=== PATIENT | male | born 1985 | race Caucasian/White ===

== ENCOUNTER 2019-05-21 15:50 | Emergency (ER) | payer OTHER, SELFPAY ==
[2019-05-21 15:54] VITALS: BP 162/107; PULSE 90; RESP 22; TEMP 36.9; O2SAT 100; BMI 24.2
--- NOTE | 2019-05-21 15:54 | ED_ITS ---
Entered by Colleen Sanchez, acting as scribe for JayleenAnamika Kemi HPI - Allergic Reaction General: Chief complaint: Allergic Reaction Stated complaint: allergic reaction Time Seen by Provider: 05/21/19 15:54 Source: patient Mode of arrival: ambulatory Limitations: no limitations History of Present Illness: HPI narrative: 34 yo male presents to ED with complaints of an allergic reaction. He is having difficulty breathing and hives. He said all he ate was a cheeseburger today. He said he normally has allergies to bologna, hot dogs, divalproex sodium (from Depakote), ketorolac (from Toradol), and penicillin. MD complaint: allergic reaction Associated symptoms: Deny abdominal pain, dizziness, facial swelling, hoarseness, nausea, tongue swelling or vomiting Review of Systems General: Reports: other (negative unless marked) Const: Denies: fever, chills, body aches, fatigue, malaise or diaphoresis Eyes: Denies: change in vision or blurry vision ENMT: Denies: throat pain, painful swallowing, hoarseness, ear pain, ear discharge, Change in hearing or nasal discharge Card: Denies: chest pain, palpitations, irregular heart rhythm, syncope, pre-syncope, shortness of breath on exertion or shortness of breath when lying down Resp: Denies: shortness of breath, productive cough, non-productive cough, wheezing, coughing up blood or chest congestion GI: Denies: abdominal pain, nausea, vomiting, vomiting blood, coffee grounds in vomit, diarrhea, constipation, cramping, blood in stool or black tarry stool : Denies: flank pain, difficulty urinating, painful urination, urinary frequency, urinary urgency, decreased urine ouput, urinary incontinence or blood in urine Musc: Denies: neck pain, back pain, extremity pain, extremity swelling, joint pain, joint swelling, joint warmth or joint stiffness Skin/Breast: Denies: rash, skin tenderness or yellow skin Neuro: Denies: headache, numbness in extremities, weakness in extremities, changes in sensation, lack of coordination, difficulty walking, dizziness, vertigo or confusion Endo: Denies: excessive thirst, tired all the time, cold intolerance, excessive sweating, flushing or hot flashes Donaldo/Lymph: Denies: easy bruising, easy bleeding, petechiae or enlarged lymph nodes All/Imm: Denies: tongue swelling, facial swelling or acute wheezing PFSH ED PFSH: Statuses (acute, chronic, etc) shown below reflect problem list status as previously entered and may not be historically accurate Social History Smoking and tobacco status: never smoked Course Vital Signs: Vital signs: Vital Signs Temperature 98.4 F 05/21/19 15:54 Pulse Rate 66 05/21/19 20:10 Respiratory Rate 20 H 05/21/19 19:21 Blood Pressure 127/95 05/21/19 20:10 Pulse Oximetry 98 05/21/19 20:10 Discharge Plan Discharge Patient Disposition: Home, Self-Care Clinical Impression: Allergic reaction Qualifiers: Encounter type: initial encounter Qualified Code(s): T78.40XA - Allergy, unspecified, initial encounter Anaphylaxis Qualifiers: Encounter type: initial encounter Qualified Code(s): T78.2XXA - Anaphylactic shock, unspecified, initial encounter Condition: Stable Prescriptions: No Action Symbicort 160-4.5 mcg/actuation Hfa Aerosol Inhaler 2 puff INHALATION BID RF: 0 Zofran 4 mg Tablet 4 mg PO DAILY PRN (Reason: Nausea) RF: 0 Flomax 0.4 mg Capsule 0.4 mg PO DAILY RF: 0 omeprazole 20 mg Capsule,Delayed Release(Dr/Ec) 20 mg PO BID RF: 0 naproxen 500 mg Tablet 500 mg PO BID PRN (Reason: Pain) RF: 0 diazepam 5 mg Tablet 5 mg PO BID PRN (Reason: Seizures) RF: 0 tizanidine 4 mg Capsule 4 mg PO TID PRN (Reason: Pain) RF: 0 oxycodone 10 mg Tablet 10 mg PO Q4H PRN (Reason: Pain) RF: 0 lovastatin 10 mg tablet 10 mg PO DAILY RF: 0 Discharge Orders: Discharge Order (Routine); Ordered 05/21/19 Ordered By: Anamika Clemens Referrals: Paige West FNP [Primary Care Provider] - Discharge Diet: Advance as tolerated Discharge Activity: Increase activity as tolerated Patient Instructions: Anaphylaxis (ED) Activity Restrictions/Additional Instructions: Please return to the ER immediately for any of the signs or symptoms listed on your discharge instruction sheets, worsening/changing of your symptoms, you are not getting better as quickly as expected, or for ANY other cause or concerns. Discharge Date/Time: 05/21/19 20:15 Coding Level of Care Code ED Logistics/Shipper for Chg Fwryanne The documentation recorded by the Daniel vilchis Valerie R, accurately reflects the service I personally performed and the decisions made by Jayleen fierro Eli N May 21, 2019 15:50
[2019-05-21 16:04] VITALS: BP 149/113; PULSE 102; RESP 24; O2SAT 100
[2019-05-21 16:06] VITALS: O2SAT 100
[2019-05-21] MEDS: diphenhydrAMINE 50 mg/mL SDV 1mL IVP (16:20)
[2019-05-21] MEDS: EPINEPHrine 1 mg/mL INJ 0.3 MG IM (16:20)
[2019-05-21] MEDS: sodium chloride 0.9% 1,000 ML 100 ML IV (16:30)
[2019-05-21] MEDS: famotidine 20 mg/2 mL INJ 40 MG IVP (16:30)
--- NOTE | 2019-05-21 16:32 | PC.NURSE ---
PEPCID MIXED IN 100ML OF NS TO INFUSE PER HOSPITAL POLICY
[2019-05-21 17:34] VITALS: BP 127/84; PULSE 66; RESP 18; O2SAT 97
--- NOTE | 2019-05-21 19:11 | XRR_ITS ---
PROCEDURE INFORMATION: Exam: XR Chest, 1 View Exam date and time: 05/21/2019 7:12 PM Age: 34 years old Clinical indication: Cough TECHNIQUE: Imaging protocol: XR of the chest Views: 1 view. COMPARISON: CR Chest 1 [place] [id number] 09/29/2018 8:22 PM FINDINGS: Lungs: Unremarkable. No consolidation. Pleural space: Unremarkable. No pleural effusion. No pneumothorax. Heart/Mediastinum: Unremarkable. No cardiomegaly. Bones/joints: Unremarkable. XR/XR chest 1V portable [id number] IMPRESSION: No acute findings. Unchanged exam.
[2019-05-21] MEDS: diphenhydrAMINE 50 mg/mL SDV 1mL 25 MG IVP (19:14)
[2019-05-21 19:21] VITALS: PULSE 71; RESP 20
[2019-05-21] MEDS: predniSONE 20 mg Tablet 60 MG PO (19:56)
[2019-05-21 20:10] VITALS: BP 127/95; PULSE 66; O2SAT 98
== END 2019-05-21 20:15 | disposition home or self-care (01) ==
PROVIDERS: Emergency Provider Emergency Medicine; Family Provider Nurse Practitioner; PCP Nurse Practitioner
DX: T78.2XXA Anaphylactic shock, unspecified, initial encounter (principal); T78.40XA Allergy, unspecified, initial encounter; X58.XXXA Exposure to other specified factors, initial encounter
CPT/HCPCS: 71045; 96360; 96361; 96372; 96374; 96375; 99282; J0171; J1200; J2930; J3490; J7030; J7512

== ENCOUNTER → 2019-06-22 13:50 | Outpatient (BNVA) | payer OTHER, SELFPAY | PROVIDERS: Family Provider Nurse Practitioner; PCP Nurse Practitioner; Visit Provider Nurse Practitioner Psychiatric/Mental Health | DX: F33.42 Major depressive disorder, recurrent, in full remission (principal); F43.12 Post-traumatic stress disorder, chronic; F41.1 Generalized anxiety disorder; F17.290 Nicotine dependence, other tobacco product, uncomplicated | CPT/HCPCS: 99213 ==

== ENCOUNTER → 2019-07-30 09:21 | Outpatient (BNVA) | payer OTHER, SELFPAY | PROVIDERS: Family Provider Nurse Practitioner; PCP Nurse Practitioner; Visit Provider Urology | DX: N28.1 Cyst of kidney, acquired (principal); R39.9 Unspecified symptoms and signs involving the genitourinary system; R35.8 Other polyuria | CPT/HCPCS: 81001 ==

== ENCOUNTER 2019-08-12 20:26 | Emergency (ER) | payer OTHER, SELFPAY ==
[2019-08-12 20:34] VITALS: PULSE 79; RESP 16; TEMP 37.1; O2SAT 95; BMI 24.2
--- NOTE | 2019-08-12 20:42 | ED_ITS ---
HPI - Nausea/Vomiting/Diarrhea General: Chief complaint: Nausea/Vomiting/Diarrhea Stated complaint: POSS DEHYDRATION/SENT FROM URGENT CARE Time Seen by Provider: 08/12/19 20:32 Source: patient Mode of arrival: ambulatory Limitations: no limitations History of Present Illness: HPI Narrative: Pteer is a 34-year-old very pleasant male that states he has had vomiting and diarrhea with abdominal cramping over the last 4 days. Patient states that he is vomited multiple times. He states that he is feeling dehydrated and was seen in urgent care and sent here for IV fluids. He has had low-grade fevers. He denies any cough or respiratory symptoms. Denies any worsening or improving factors. MD elicited complaint: nausea and vomiting Associated nausea: Yes Associated symtoms: Reports nausea; Denies chest pain, dysuria or headache(s) Review of Systems Const: Denies: fever, chills, body aches or change in appetite Eyes: Denies: blurry vision or eye discomfort ENMT: Denies: throat pain or dental pain Card: Denies: chest pain Resp: Denies: shortness of breath GI: Reports: nausea, vomiting and diarrhea; Denies: abdominal pain : Denies: painful urination Musc: Denies: neck pain or back pain Skin/Breast: Denies: rash Neuro: Denies: headache Psych: Denies: depression Donaldo/Lymph: Denies: easy bruising All/Imm: Denies: hives PFSH ED PFSH: Medical History Chronic post-traumatic stress disorder Generalized anxiety disorder Lower urinary tract symptoms (LUTS) Major depressive disorder, recurrent, in full remission with anxious distress Nicotine dependence, other tobacco product, uncomplicated Vaping Polyuria Family History Mother History of shingles Grandfather Myocardial infarction Other Cancer Diabetes Social History Smoking and tobacco status: former smoker Alcohol intake: never Marital status: Current occupational status: employed History of recent travel: No Physical Exam Const: COMMON NORMALS: no apparent distress, oriented x3 and healthy appearing HENMT: COMMON NORMALS: normocephalic and head/scalp atraumatic HEAD & SCALP: normocephalic and atraumatic Eye: COMMON NORMALS: PERRL and EOMs intact bilaterally PUPIL: Yes PERRL Neck/C-Spine: COMMON NORMALS: full ROM and supple Chest: COMMONS NORMALS: inspection of chest normal and palpation of chest normal Resp: COMMON NORMALS: normal respiratory effort, no retractions, no use of accessory muscles and clear to auscultation bilaterally AUSCULTATION: clear to auscultation bilaterally Cardio: COMMON NORMALS: regular rate, regular rhythm and no murmurs RATE: regular rate RHYTHM: regular rhythm GI: COMMON NORMALS: normal to inspection, nondistended, normoactive bowel sounds, soft to palpation, non-tender and no masses PALPATION: Yes soft Extremity: COMMON NORMALS: normal to inspection and full ROM Neuro: COMMON NORMALS: oriented x3, moves all extremities and no focal motor deficits Psych: COMMON NORMALS: mental status grossly normal, thought process normal and cooperative THOUGHT PROCESS: normal thought process Skin: COMMON NORMALS: no rashes or lesions noted and no wounds GENERAL SKIN EXAM: no rashes or lesions noted Course Vital Signs: Vital signs: Vital Signs Temperature 98.8 F 08/12/19 20:34 Pulse Rate 79 08/12/19 20:34 Respiratory Rate 16 08/12/19 20:34 Pulse Oximetry 95 08/12/19 20:34 MDM - Nausea/Vomiting/Diarrhea MDM Narrative: Medical decision making narrative: Patient presents here with vomiting that is likely viral in origin. Patient feels much improved after IV fluids and Zofran. Patient's lab work here is normal abdominal exam is benign. He has no signs of acute surgical abdomen. Will prescribe him Zofran for home and he is to follow-up with primary care doctor in 3 to 5 days and return if worsening. Lab Data: Labs: Lab Results 08/12/19 08/12/19 Range/Units 21:05 21:05 WBC 6.7 (4.0-10.0) 10^3/ uL RBC 4.57 (4.1-5.3) 10^6/u L Hgb 13.8 (11.7-16.6) g/dL Hct 40.6 L (42.0-52.0) % MCV 88.8 (80-94) fL MCH 30.2 (28.0-34.0) pg MCHC 34.0 (30.0-36.0) g/dL RDW 11.5 L (12.1-15.1) % Plt Count 248 (130-400) 10^3/c mm MPV 9.8 (7.4-10.4) fL Neut % (Auto) 56.2 % Lymph % (Auto) 34.3 % Stephenson % (Auto) 7.5 % Eos % (Auto) 1.0 % Baso % (Auto) 0.6 % Neut # (Auto) 3.7 (1.8-7.7) 10^3/u L Lymph # (Auto) 2.3 (0.8-4.8) 10^3/u L Stephenson # (Auto) 0.5 (0.2-0.9) 10^3/u L Eos # (Auto) 0.1 (0.0-0.8) 10^3/u L Baso # (Auto) 0.0 (0.0-0.1) 10^3/u L Nucleated RBC % (a uto) 0 % Nucleated RBCs # 0.0 /100WBC Sodium 138 (136-145) mmol/L Potassium 3.9 (3.5-5.1) mmol/L Chloride 101 (98-107) mmol/L Carbon Dioxide 27 (22-29) mmol/L Anion Gap 13.9 (5-19) BUN 13 (6-20) mg/dL Creatinine 0.9 (0.7-1.2) mg/dL GFR Calculation 96.0 (90-130) mL/min Glucose 108 (65-115) mg/dL Calculated Osmolal ity 283 L (285-295) mOsm/k g Calcium 9.6 (8.5-10.5) mg/dL Total Bilirubin 0.3 (0.15-1.2) mg/dL AST 16 (0-40) U/L ALT 15 (0-41) U/L Alkaline Phosphata se 56 (40-130) IU/L Total Protein 7.0 (6.6-8.7) g/dL Albumin 4.4 (3.5-5.2) g/dL Globulin 2.6 (1.3-4.6) g/dL Lipase 106 H (13-60) U/L Discharge Plan Discharge Patient Disposition: Home, Self-Care Clinical Impression: Vomiting Qualifiers: Vomiting type: unspecified Vomiting Intractability: non-intractable Nausea presence: with nausea Qualified Code(s): R11.2 - Nausea with vomiting, unspecified Condition: Stable Prescriptions: New Zofran 4 mg tablet 4 mg PO QID PRN (Reason: nausea and vomiting) Qty: 14 RF: 0 No Action Flomax 0.4 mg capsule 0.4 mg PO DAILY Qty: 30 RF: 12 morphine 15 mg tablet 15 mg PO Q4H RF: 0 diazepam 5 mg tablet 5 mg PO BID PRN (Reason: Seizures) Qty: 60 RF: 3 ondansetron 4 mg tablet,disintegrating 4 mg PO Q8H PRN (Reason: nausea and vomiting) Qty: 10 RF: 0 Zofran 4 mg tablet 4 mg PO DAILY PRN (Reason: Nausea) Qty: 30 RF: 3 bisacodyl 5 mg Tablet,Delayed Release (Dr/Ec) 5 mg PO DAILY RF: 0 Symbicort 160-4.5 mcg/actuation Hfa Aerosol Inhaler 2 puff INHALATION BID RF: 0 omeprazole 20 mg Capsule,Delayed Release(Dr/Ec) 20 mg PO BID RF: 0 naproxen 500 mg Tablet 500 mg PO BID PRN (Reason: Pain) RF: 0 tizanidine 4 mg Capsule 4 mg PO TID PRN (Reason: Pain) RF: 0 lovastatin 10 mg tablet 10 mg PO DAILY RF: 0 Discharge Orders: Discharge Order (Routine); Ordered 08/12/19 Ordered By: Hussain Pan Referrals: Paige West FNP [Primary Care Provider] - 4-7 days Discharge Diet: Advance as tolerated Discharge Activity: Resume usual activity Patient Instructions: Acute Nausea and Vomiting (ED) Coding Level of Care Code ED [employer] Worker for g Fwd Exam Comprehensive
[2019-08-12 21:08] LABS: Basophils % 0.6 %; Eosinophils # 0.1 10^3/uL (0.0-0.8); Hematocrit 40.6 % (42.0-52.0); Hemoglobin 13.8 g/dL (11.7-16.6); Lymphocytes # 2.3 10^3/uL (0.8-4.8); Lymphocytes % 34.3 %; Mean Corpuscular Hemoglobin 30.2 pg (28.0-34.0); Mean Corpuscular Volume 88.8 fL (80-94); Mean Platelet Volume 9.8 fL (7.4-10.4); Monocytes # 0.5 10^3/uL (0.2-0.9); Monocytes % 7.5 %; Neutrophils # 3.7 10^3/uL (1.8-7.7); Neutrophils % 56.2 %; Nucleated Red Blood Cells % 0 %; Platelet Count 248 10^3/cmm (130-400); Red Blood Count 4.57 10^6/uL (4.1-5.3); Red Cell Distribution Width 11.5 % (12.1-15.1); White Blood Count 6.7 10^3/uL (4.0-10.0)
[2019-08-12 21:27] LABS: Alanine Aminotransferase 15 U/L (0-41); Albumin Level 4.4 g/dL (3.5-5.2); Alkaline Phosphatase 56 IU/L (40-130); Anion Gap 13.9 (5-19); Aspartate Amino Transferase 16 U/L (0-40); Blood Urea Nitrogen 13 mg/dL (6-20); Calcium 9.6 mg/dL (8.5-10.5); Carbon Dioxide 27 mmol/L (22-29); Chloride 101 mmol/L (98-107); Globulin 2.6 g/dL (1.3-4.6); Glucose 108 mg/dL (65-115); Lipase 106 U/L (13-60); Osmolality Calculated 283 mOsm/kg (285-295); Potassium 3.9 mmol/L (3.5-5.1); Sodium 138 mmol/L (136-145); Total Bilirubin 0.3 mg/dL (0.15-1.2)
[2019-08-12] MEDS: ondansetron 2 mg/ML SDV 2 mL 4 MG IVP (21:49)
[2019-08-12] MEDS: sodium chloride 0.9% 1,000 ML 999 ML IV (21:50)
[2019-08-12] MEDS: ondansetron 4 MG Tablet PO (22:31)
[2019-08-12 22:40] VITALS: BP 126/74; PULSE 72; RESP 16; TEMP 36.5; O2SAT 96
== END 2019-08-12 22:00 | disposition home or self-care (01) ==
PROVIDERS: Emergency Provider Emergency Medicine; Family Provider Nurse Practitioner; PCP Nurse Practitioner
DX: R11.2 Nausea with vomiting, unspecified (principal); F43.12 Post-traumatic stress disorder, chronic; F33.42 Major depressive disorder, recurrent, in full remission; F41.1 Generalized anxiety disorder; Z87.891 Personal history of nicotine dependence
CPT/HCPCS: 12345; 80053; 83690; 85025; 96361; 96374; 96375; 99283; 99284; J2405; J7030; Q0162

== ENCOUNTER → 2019-10-21 07:33 | Outpatient (BNVA) | payer OTHER, SELFPAY | PROVIDERS: Family Provider Nurse Practitioner; PCP Nurse Practitioner; Visit Provider Nurse Practitioner Psychiatric/Mental Health | DX: F33.42 Major depressive disorder, recurrent, in full remission (principal); F43.12 Post-traumatic stress disorder, chronic; F41.1 Generalized anxiety disorder; F17.290 Nicotine dependence, other tobacco product, uncomplicated | CPT/HCPCS: 99213 ==

== ENCOUNTER 2019-11-25 08:47 | Day surgery (SDC) | payer OTHER, SELFPAY ==
[2019-11-23 10:59] VITALS: BMI 23.8
[2019-11-25 09:10] VITALS: BP 137/87; PULSE 56; RESP 18; TEMP 36.2; O2SAT 99
[2019-11-25] MEDS: sodium chloride 0.9% 1,000 ML 30 ML IV (09:30)
--- NOTE | 2019-11-25 09:46 | W.PM.OPSUD ---
Surgery/Procedure H&P Update DATE OF PROCEDURE: November 25, 2019 DATE H&P PERFORMED: 11/19/19 H&P UPDATE INFORMATION: I have reviewed H&P completed within last 30 days, I have examined patient prior to procedure and No changes to prior documentation PREOP DIAGNOSIS: Diarrhea PLANNED PROCEDURE: Operation Date: 11/25/19 09:30 Proposed Procedures p EGD/Possible biopsy/[id number] 19287 K29.50 R19.7(Not Applicable) - Davian Felix MD s Colonoscopy/Possible biopsy possible polypectomy(Not Applicable) - Davian Felix MD
--- NOTE | 2019-11-25 09:48 | ANES.PREANE2 ---
Pre-Anesthetic Assessment Pre-Anesthetic Assessment: Height/Weight: Height 1.68 m Weight 67.132 kg Temp Pulse Resp BP Pulse Ox 97.2 F L 56 L 18 137/87 99 11/25/19 09:10 11/25/19 09:10 11/25/19 09:10 11/25/19 09:10 11/25/19 09:10 Preop Diagnosis: Diarrhea Proposed Procedure: Operation Date: 11/25/19 09:30 Proposed Procedures p EGD/Possible biopsy/[id number] 67015 K29.50 R19.7(Not Applicable) - Davian Felix MD s Colonoscopy/Possible biopsy possible polypectomy(Not Applicable) - Davian Felix MD Was Beta Leanna taken within 24 hours: N/A Last intake: Intake Last Liquid Date 11/24/19 Last Liquid Time 19:00 Last Solid Date 11/24/19 Last Solid Time 19:00 Last Intake: 19:00 Social: Social History: No alcohol and No tobacco Comment: stop 2015 Exam: Pre-Anes Outpt Exam: alert, oriented x 3, clear to auscultation bilaterally and regular rate & rhythm Airway: Submandibular: WNL Cervical ROM: WNL MP: 1 Dentition: False Pulmonary: Pulmonary: COPD, MEHTA and SOB CV/HEM: CV/HEM: None reported : : None reported Hepatic: Hepatic: None reported GI: GI: GERD Metabolic: Metabolic: None reported Comments: hx PUD Musc/skel: Musc/skel: Lower Back Pain and OA/DJD Neuropsych: Neuropsych: Anxiety and Depression Anesthetic Plan: ASA status: 2 Anesthesia: Anesthesia Evaluation and MAC Risk of > 500 ml blood loss (7ml/kg in children): No PFSH Anesthesia PFSH: Medical History Chronic post-traumatic stress disorder COPD, mild Depression Frequent headaches Gastritis Generalized anxiety disorder Lower urinary tract symptoms (LUTS) Major depressive disorder, recurrent, in full remission with anxious distress Neuropathy Nicotine dependence, other tobacco product, uncomplicated Vaping Peptic ulcer disease Polyuria Seizures Surgical History H/O oral surgery History of endoscopy Hx of umbilical hernia repair Family History Mother History of shingles Grandfather Myocardial infarction CAD (coronary artery disease) Other Cancer Diabetes Denies family history of Anesthesia complication Bleeding disorder Social History Smoking and tobacco status: former smoker Alcohol intake: never Household members: spouse Marital status: Current occupational status: employed History of recent travel: No Data Anesthesia Cardiac Studies: No Data to Display
[2019-11-25 10:21] VITALS: BP 113/74; PULSE 69; RESP 16; TEMP 36.2; O2SAT 96
[2019-11-25 10:36] VITALS: BP 127/77; PULSE 72; RESP 18; TEMP 36.3; O2SAT 97
--- NOTE | 2019-11-25 11:27 | ANE.PACU2 ---
Inpatient post-anesthesia follow up: Airway intact: Yes Vital signs: Temperature 97.4 F Pulse Rate 72 Respiratory Rate 18 Blood Pressure 127/77 Pulse Oximetry 97 Oxygen Delivery Me thod Room Air Oxygen Flow Rate 3 Fraction of Inspir ed Oxygen Hydration adequate: Yes Nausea and vomiting: No Pain level: 1 Mental status: Baseline
== END 2019-11-25 11:20 | disposition home or self-care (01) ==
PROVIDERS: PCP Family Medicine; Visit Provider Surgery
PROC: 0DJ08ZZ Inspection of Upper Intestinal Tract, Via Natural or Artificial Opening Endoscopic (ICD-10-PCS; CPT 43235; principal; 2019-11-25 09:30)
PROC: 0DJD8ZZ Inspection of Lower Intestinal Tract, Via Natural or Artificial Opening Endoscopic (ICD-10-PCS; CPT 45378; 2019-11-25 09:30)
DX: R19.7 Diarrhea, unspecified (principal); K44.9 Diaphragmatic hernia without obstruction or gangrene; J44.9 Chronic obstructive pulmonary disease, unspecified; K21.9 Gastro-esophageal reflux disease without esophagitis; Z87.11 Personal history of peptic ulcer disease; M19.90 Unspecified osteoarthritis, unspecified site; F41.9 Anxiety disorder, unspecified; F33.9 Major depressive disorder, recurrent, unspecified; Z87.891 Personal history of nicotine dependence
CPT/HCPCS: 12345; 43239; 45380; 82274; 83630; 87493; 87506; 88305; 88309

== ENCOUNTER → 2019-12-09 07:30 | Outpatient (BNVA) | payer OTHER, SELFPAY | PROVIDERS: PCP Family Medicine; Visit Provider Nurse Practitioner Psychiatric/Mental Health | DX: F33.42 Major depressive disorder, recurrent, in full remission (principal); F43.12 Post-traumatic stress disorder, chronic; F41.1 Generalized anxiety disorder; F17.290 Nicotine dependence, other tobacco product, uncomplicated | CPT/HCPCS: 99214 ==

== ENCOUNTER 2019-12-28 08:49 | Outpatient (CLI) | payer OTHER, SELFPAY ==
--- NOTE | 2019-12-28 08:45 | US_ITS ---
WS: [id number] RIGHT UPPER QUADRANT ULTRASOUND HISTORY: chronic abdominal pain COMPARISON: 10/24/2017 Liver: 16.4 cm in length. Liver is top normal size. No mass or intrahepatic dilatation. Gallbladder: Gallbladder is slightly contracted with mild wall thickening. No stones or pericholecyst ic fluid. CBD: 0.3 cm Pancreas: Normal size and echogenicity. Right kidney: 10.8 cm in length. Normal echogenicity with no mass or hydronephrosis. Aorta and IVC: Unremarkable. No ascites. During this examination the stomach antrum was thickened and hyperechoic. No fluid adjacent to the an trum or duodenum. US/US gall bladder [id number] IMPRESSION: 1. No cholelithiasis or acute cholecystitis. 2. Mild hepatomegaly. 3. Stomach antral thickening. Correlate for gastritis.
== END 2019-12-28 08:50 | disposition home or self-care (01) ==
LOC: US 08:52
PROVIDERS: PCP Family Medicine; Visit Provider Surgery
DX: R10.9 Unspecified abdominal pain (principal); G89.29 Other chronic pain; R16.0 Hepatomegaly, not elsewhere classified
CPT/HCPCS: 76705

== ENCOUNTER 2020-02-16 10:14 | Outpatient (CLI) | payer SELFPAY ==
--- NOTE | 2020-02-16 10:23 | NM_ITS ---
WS: [id number] NUCLEAR MEDICINE HIDA SCAN CLINICAL INFORMATION: right upper and lower quadrant pain TECHNIQUE: Following intravenous administration of 7.4 mCi of technetium 99m mebrofenin, images of th e abdomen were obtained over the course of 60 minutes. Next, gallbladder ejection fraction was determ ined by obtaining preprandial and one-hour postprandial images of the gallbladder following oral olivier stion of Ensure. COMPARISON: Ultrasound December 28, 2019 FINDINGS: Normal hepatic uptake at 5 minutes. Normal common bile duct and small bowel activity. Normal hepatic excretion. Contracted gallbladder fills by 60 minutes. No evidence of choledocholithiasis. No significant gallbladder emptying on the ejection fraction images. NM/NM hepatobiliary w phar* [id number] IMPRESSION: 1. Gallbladder dysfunction suggesting chronic cholecystitis with no significan t gallbladder emptying.
== END 2020-02-16 10:15 | disposition home or self-care (01) ==
PROVIDERS: PCP Family Medicine; Visit Provider Surgery
DX: R10.11 Right upper quadrant pain (principal); R10.31 Right lower quadrant pain
CPT/HCPCS: 78227; A9537

== ENCOUNTER → 2020-02-17 14:40 | Outpatient (BNVA) | payer SELFPAY | PROVIDERS: PCP Family Medicine; Visit Provider Surgery | DX: K82.8 Other specified diseases of gallbladder (principal) | CPT/HCPCS: 87635 ==

== ENCOUNTER 2020-02-21 09:27 | Day surgery (SDC) | payer SELFPAY ==
[2020-02-18 13:06] VITALS: BMI 24.2
[2020-02-21] VITALS (8 sets, daily range): BP systolic 110–138; BP diastolic 66–94; PULSE 57–71; RESP 13–20; TEMP 36.2–36.5; O2SAT 97–100
--- NOTE | 2020-02-21 10:10 | P.HP_ITS ---
Same Day Surgery H&P Indication for Procedure/HPI DATE OF PROCEDURE: February 21, 2020 CHIEF COMPLAINT/INDICATIONFOR SURGICAL PROCEDURE: Patient continues to have abdominal pain, HIDA scan showed nonfilling of the gallbladder PREOP DIAGNOSIS: Chronic cholecystitis PLANNED PROCEDRUE: Operation Date: 02/21/20 10:40 Proposed Procedures p Laparoscopic Cholecystectomy possible open, 76244 K82.8(Not Applicable) - Davian Felix MD Medications/Allergies* Home Medications Medication Instructions Recorded Confirmed Type naproxen 500 mg PO BID PRN 05/21/19 02/21/20 History tizanidine 4 mg PO TID PRN 05/21/19 02/21/20 History Allergies/Adverse Reactions Allergy/AdvReac Type Severity Reaction Status Date / Time divalproex sodium Allergy hives Verified 02/21/20 09:57 [From Depakote] ketorolac [From Toradol] Allergy hives Verified 02/21/20 09:57 Penicillins Allergy hives Verified 02/21/20 09:57 bologna Allergy ALGY-Anaphy Uncoded 02/21/20 09:57 laxis hot dogs Allergy ALGY-Anaphy Uncoded 02/21/20 09:57 laxis Pertinent History/Comorbid Conditions* Medical History (Updated 11/16/19 @ 07:46 by Syeda Yang DO) Chronic post-traumatic stress disorder COPD, mild Depression Frequent headaches Gastritis Generalized anxiety disorder Lower urinary tract symptoms (LUTS) Major depressive disorder, recurrent, in full remission with anxious distress Neuropathy Nicotine dependence, other tobacco product, uncomplicated Vaping Peptic ulcer disease Polyuria Seizures Surgical History (Updated 10/13/19 @ 13:50 by Syeda Yang DO) H/O oral surgery History of endoscopy Hx of umbilical hernia repair Family History (Updated 11/19/19 @ 13:53 by Marly Gibson LPN) History of shingles Mother Diabetes CAD (coronary artery disease) Grandfather Myocardial infarction Grandfather Cancer Denies family history of Anesthesia complication Bleeding disorder Social History Smoking and tobacco status: former smoker Alcohol intake: never Household members: spouse Marital status: Current occupational status: employed History of recent travel: No Pertinent Exam Findings alert, oriented x 3, regular rate & rhythm and operative site marked Recommendations Surgery/Procedure today Coding Level of Care Code Acute Medicare Contact Specialist for Chg Carlos
--- NOTE | 2020-02-21 10:12 | ANES.PREANE2 ---
Pre-Anesthetic Assessment Pre-Anesthetic Assessment: Height/Weight: Height 1.68 m Weight 68.039 kg Temp Pulse Resp BP Pulse Ox 97.1 F L 70 18 138/94 98 02/21/20 09:59 02/21/20 09:59 02/21/20 09:59 02/21/20 09:59 02/21/20 09:59 Preop Diagnosis: Chronic cholecystitis Proposed Procedure: Operation Date: 02/21/20 10:40 Proposed Procedures p Laparoscopic Cholecystectomy possible open, 10103 K82.8(Not Applicable) - Davian Felix MD Was Beta Leanna taken within 24 hours: N/A Last intake: Intake Last Liquid Date 02/20/20 Last Solid Date 02/20/20 Social: Social History: Tobacco Exam: Pre-Anes Outpt Exam: alert, oriented x 3, clear to auscultation bilaterally and regular rate & rhythm Airway: Submandibular: WNL Cervical ROM: WNL MP: 2 Dentition: False History/ROS: No significant history except as noted and No significant complaints Pulmonary: Pulmonary: COPD Comments: mild COPD CV/HEM: CV/HEM: None reported : : None reported Hepatic: Hepatic: None reported GI: GI: None reported Metabolic: Metabolic: None reported Neuropsych: Neuropsych: Neuropathy and Seizure Comments: No seizure in years Anesthetic Plan: ASA status: 2 Anesthesia: Anesthesia Evaluation and General Risk of > 500 ml blood loss (7ml/kg in children): No PFSH Anesthesia PFSH: Medical History Chronic post-traumatic stress disorder COPD, mild Depression Frequent headaches Gastritis Generalized anxiety disorder Lower urinary tract symptoms (LUTS) Major depressive disorder, recurrent, in full remission with anxious distress Neuropathy Nicotine dependence, other tobacco product, uncomplicated Vaping Peptic ulcer disease Polyuria Seizures Surgical History H/O oral surgery History of endoscopy Hx of umbilical hernia repair Family History Mother History of shingles Grandfather Myocardial infarction CAD (coronary artery disease) Other Cancer Diabetes Denies family history of Anesthesia complication Bleeding disorder Social History Smoking and tobacco status: former smoker Alcohol intake: never Household members: spouse Marital status: Current occupational status: employed History of recent travel: No Data Anesthesia Cardiac Studies: No Data to Display
[2020-02-21] MEDS: ciprofloxacin 400 MG/200 ML PREMIX 200 MG IV (10:17)
[2020-02-21] MEDS: midazolam 1 mg/mL INJ 2 mL 2 MG IVP (10:17)
[2020-02-21] MEDS: sodium chloride 0.9% 1,000 ML 30 ML IV (10:20)
--- NOTE | 2020-02-21 11:28 | PM.OP ---
Operative Report Date of procedure: February 21, 2020 Pre-op Diagnosis: Chronic cholecystitis Post-op diagnosis: same Procedure Done: Laparoscopic cholecystectomy Specimens removed/disposition: Gallbladder Surgeon: Davian Felix Anesthesia: General Condition: stable Disposition: PACU Procedure: The patient was taken to the operating room and was intubated under general anesthesia. After the antibiotic had been administered, the abdomen was prepped and draped in a sterile manner. Using a #15 blade, a 1 centimeter infraumbilical curvilinear incision was made and using an open Roverto technique the peritoneal cavity was entered. A 10 millimeter port was placed and 15 millimeters of pneumoperitoneum was created. A 10 millimeter, 30 degrees scope was then introduced. Three 5 millimeter ports were placed in the epigastric, midclavicular and the anterior axillary line two fingerbreadths below the costal margin on the right side under the direct visualization. Ratcheted forceps were introduced into the lateral most port and was used to retract the fundus of the gallbladder cephalad and using forceps the infundibulum of the gallbladder was retracted laterally. Using L-hook cautery the peritoneum overlying the Calot's triangle was opened medially and laterally until the cystic duct and the cystic artery were skeletonized. Dissection was carried along the body of the gallbladder and after ensuring critical view of safety, 4 clips applied on the cystic duct and 3 clips applied on the cystic artery and cut leaving, 3 clips on the remaining portion of the duct and 2 clips on the remaining portion of the artery. The rest of the gallbladder was dissected off the liver using L-hook cautery. There was no bleeding or bile leaking noted from the gallbladder fossa and the clips appeared to be in place. An EndoCatch bag was introduced to remove the gallbladder. All the ports were removed under direct visualization and there was no bleeding noted from the port sites. The fascia of the umbilicus was closed using [id number] 0 Vicryl sutures and the subcutaneous tissue was approximated using 3-0 Vicryl sutures. The skin at all four ports were closed using 4-0 Monocryl and Dermabond. A total of 10 millimeters of 0.5% Marcaine was infiltrated around the port sites. The patient was stable throughout the procedure.
--- NOTE | 2020-02-21 11:35 | ANE.PACU2 ---
Inpatient post-anesthesia follow up: Airway intact: Yes Vital signs: Temperature 97.7 F Pulse Rate 71 Respiratory Rate 18 Blood Pressure 138/91 Pulse Oximetry 100 Oxygen Delivery Me thod Room Air Oxygen Flow Rate 8 Fraction of Inspir ed Oxygen Hydration adequate: Yes Nausea and vomiting: No Pain level: 6 Mental status: Baseline
[2020-02-21] MEDS: HYDROcodone-acetaminophen 5-325 mg Tablet 1 TAB PO (12:08)
[2020-02-21] MEDS: morphine IR 15 mg Tablet PO (12:18)
== END 2020-02-21 13:00 | disposition home or self-care (01) ==
PROVIDERS: PCP Family Medicine; Visit Provider Surgery
PROC: 0FT44ZZ Resection of Gallbladder, Percutaneous Endoscopic Approach (ICD-10-PCS; CPT 47562; principal; 2020-02-21 10:40)
DX: K81.1 Chronic cholecystitis (principal); J44.9 Chronic obstructive pulmonary disease, unspecified; Z87.11 Personal history of peptic ulcer disease; Z87.891 Personal history of nicotine dependence
CPT/HCPCS: 47562; 12345; 88304; J0744; J1100; J2250; J2405; J2704; J2710; J3010; J3490; J7030

== ENCOUNTER → 2020-04-10 15:49 | Outpatient (BNVA) | payer OTHER, SELFPAY | PROVIDERS: PCP Family Medicine; Visit Provider Family Medicine | DX: E78.5 Hyperlipidemia, unspecified (principal); K59.1 Functional diarrhea; Z68.23 Body mass index [BMI] 23.0-23.9, adult; F17.211 Nicotine dependence, cigarettes, in remission; Z71.89 Other specified counseling | CPT/HCPCS: 80053; 80061 ==

== ENCOUNTER → 2020-04-13 13:49 | Outpatient (BNVA) | payer OTHER, SELFPAY | PROVIDERS: PCP Family Medicine; Visit Provider Family Medicine | DX: E87.5 Hyperkalemia (principal) | CPT/HCPCS: 80048 ==

== ENCOUNTER → 2020-04-24 08:08 | Outpatient (BNVA) | payer OTHER, SELFPAY | PROVIDERS: PCP Family Medicine; Visit Provider Nurse Practitioner Psychiatric/Mental Health | DX: F33.42 Major depressive disorder, recurrent, in full remission (principal); F43.12 Post-traumatic stress disorder, chronic; F41.1 Generalized anxiety disorder; F17.290 Nicotine dependence, other tobacco product, uncomplicated | CPT/HCPCS: 99213 ==

== ENCOUNTER → 2020-07-14 07:59 | Outpatient (BNVA) | payer OTHER, SELFPAY | PROVIDERS: PCP Family Medicine; Visit Provider Nurse Practitioner Psychiatric/Mental Health | DX: F33.42 Major depressive disorder, recurrent, in full remission (principal); F43.12 Post-traumatic stress disorder, chronic; F41.1 Generalized anxiety disorder; F17.290 Nicotine dependence, other tobacco product, uncomplicated | CPT/HCPCS: 99214 ==

== ENCOUNTER 2020-08-16 13:07 | Observation (INO) | payer OTHER, SELFPAY ==
[2020-08-16] VITALS (8 sets, daily range): BP systolic 115–123; BP diastolic 69–79; PULSE 60–67; RESP 17–18; TEMP 36.8–37.2; O2SAT 96–98
--- NOTE | 2020-08-16 13:11 | PM.HP ---
Providers/Chief Complaint Admitting Physician: Liam Cam MD Primary Care Provider: Syeda Yang DO Chief Complaint: dehydration and vommiting History of Present Illness Peter Brito III is a 35 year old male with history of intractable nausea and vomiting last 4 days. He reports he is very weak, dizzy, and then unable to keep any significant amount of food or liquid down. He reports he is trying to take a very small sip of fluid once in a while to stay hydrated. He denies any fever. Other family members recently with gastroenteritis. He has not had any loose stool other than one episode today. No fever, new cough, history of Covid, exposure to Covid. He reports stomach issues for at least 5 years, with episodes of vomiting and diarrhea occurring every 1 to 2 months. He has been diagnosed with irritable bowel. He said upper and lower endoscopies which were significant only for a small hiatal hernia in November 2019. He reports he recently started marijuana 2 weeks ago after he got his medical card to see if this would help. He is on chronic pain medicine in the form of morphine which he denies taking in the last 4 days secondary to vomiting. He thinks he may be withdrawing some now. No blood in stool, no black or tarry bowel movements, no hematemesis. Having pain in his epigastric area but some in the right lower quadrant as well. He has been taking naproxen on occasion. Review of Systems General: Reports: 10 or more systems reviewed and unremarkable except in HPI and below Const: Denies: fever(s) Eyes: Denies: change in vision ENMT: Denies: throat pain Card: Denies: chest pain Resp: Denies: dyspnea GI: Reports: abdominal pain, nausea and vomiting; Denies: hematemesis, coffee ground emesis, hematochezia or melena : Denies: flank pain Musc: Denies: neck pain Skin/Breast: Denies: rash Neuro: Denies: headache(s) Psych: Reports: anxiety; Denies: depression Endo: Denies: polyuria Donaldo/Lymph: Denies: easy bruising All/Imm: Denies: urticaria Medications/Allergies Home Medications Medication Instructions Recorded Confirmed Last Taken Type naproxen 500 mg PO BID PRN 05/21/19 08/16/20 02/19/20 History tizanidine 4 mg PO TID PRN 05/21/19 08/16/20 02/20/20 History fluticasone fur. 100 mcg-umeclid 1 inh INHALATION DAILY 90 Days #60 12/15/19 08/16/20 02/21/20 Rx 62.5 mcg-vilant 25 mcg each inhalat.powder morphine 15 mg PO Q4H PRN 02/21/20 08/16/20 02/21/20 History lovastatin 10 mg tablet 10 mg PO DAILY #90 tab 07/03/20 08/16/20 Unknown Rx diazepam 5 mg tablet 5 mg PO BID PRN #60 tab 07/14/20 08/16/20 Unknown Rx dicyclomine 10 mg capsule 10 mg PO QID #120 cap 07/14/20 08/16/20 Unknown Rx trazodone 150 mg tablet 150 mg PO .bedtime PRN #90 tab 07/14/20 08/16/20 Unknown Rx ciprofloxacin HCl 500 mg tablet 500 mg PO BID #20 tab 07/20/20 08/16/20 Unknown Rx metronidazole 500 mg tablet 500 mg PO BID #20 tab 07/20/20 08/16/20 Unknown Rx ondansetron HCl 4 mg tablet 4 mg PO Q6H PRN #20 tab 07/20/20 08/16/20 Unknown Rx pantoprazole 40 mg tablet,delayed 40 mg PO BID #60 tab 08/03/20 08/16/20 Unknown Rx release tamsulosin 0.4 mg capsule See Rx Instructions .ROUTE 08/07/20 08/16/20 Unknown Rx .COMPLEX #30 cap Allergies Allergy/AdvReac Type Severity Reaction Status Date / Time divalproex sodium Allergy hives Verified 08/16/20 10:23 [From Depakote] ketorolac [From Toradol] Allergy hives Verified 08/16/20 10:23 Penicillins Allergy hives Verified 08/16/20 10:23 bologna Allergy ALGY-Anaphy Uncoded 08/15/20 09:38 laxis hot dogs Allergy ALGY-Anaphy Uncoded 08/15/20 09:38 laxis PFSH Acute PFSH: Medical History Chronic post-traumatic stress disorder COPD, mild Depression Frequent headaches Gastritis Generalized anxiety disorder Lower urinary tract symptoms (LUTS) Major depressive disorder, recurrent, in full remission with anxious distress Neuropathy Nicotine dependence, other tobacco product, uncomplicated Vaping Peptic ulcer disease Polyuria Seizures Surgical History H/O oral surgery History of endoscopy Hx of umbilical hernia repair Status post laparoscopic cholecystectomy (02/21/20) Family History Mother History of shingles Grandfather Myocardial infarction CAD (coronary artery disease) Other Cancer Diabetes Denies family history of Anesthesia complication Bleeding disorder Social History Smoking and tobacco status: former smoker Alcohol intake: never Household members: spouse Marital status: Current occupational status: employed History of recent travel: No Vitals/I&O/Wt Last Vital Signs Temp 98.2 F 08/16/20 12:59 Pulse 61 08/16/20 12:59 Resp 18 08/16/20 12:59 BP 123/79 08/16/20 12:59 Pulse Ox 98 08/16/20 12:59 Physical Exam Narrative: EXAM NARRATIVE: General exam is a male, who appears tired in no apparent distress HEENT: Pupils equally round. Oropharynx with dry mucous membranes Neck is supple no lymphadenopathy thyromegaly Cardiovascular regular rate and rhythm without murmur Lungs clear to auscultation bilaterally that wheezing or crackles Abdomen is tenderness in the epigastric as well as right lower quadrant area. Positive bowel sounds. No obvious rebound. was deferred Extremities no cyanosis clubbing or edema, cap refill brisk Skin no rash Neuro no obvious focal deficits. Data Other data: He is a direct admission so no laboratory at time of history and physical. I have ordered a CBC, CMP, urinalysis, TSH, lactate, magnesium. Secondary to his significant abdominal pain I will obtain a CT abdomen and pelvis if his kidney function is acceptable. A&P Assessment and plan (1) Dehydration: Fluid bolus now 500 cc, reassess Status: Acute (2) Intractable nausea and vomiting: Zofran for nausea Morphine as needed N.p.o. for now IV fluids Discussed with patient that possibly narcotic withdrawal or THC use could exacerbate his underlying chronic nausea and vomiting. 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
[2020-08-16 13:21] LABS: Add Urine Microscopic? NO; Charge for UA Resulting for Rev
[2020-08-16 13:36] LABS: Bilirubin Urine Neg (Negative); Blood Urine Neg (Negative); Glucose Urine UA Norm (Normal); Ketones Urine 1+ (Negative); Leukocyte Esterase Urine Negative (Negative); Nitrate Urine Negative (Negative); Protein Urine Neg (Negative); Specific Gravity, Urine 1.005 (1.005-1.030); Urine Appearance Clear (CLEAR); Urine Color Yellow (Yellow); Urobilinogen Urine Norm (Negative); pH Urine 7 (5-7)
[2020-08-16 13:40] LABS: Basophils # 0.1 10^3/uL (0.0-0.1); Basophils % 0.5 %; Eosinophils % 0.1 %; Hemoglobin 15.3 g/dL (11.7-16.6); Lymphocytes # 2.7 10^3/uL (0.8-4.8); Lymphocytes % 21.2 %; Mean Corpuscular HGB Conc 33.3 g/dL (30.0-36.0); Mean Corpuscular Hemoglobin 29.9 pg (28.0-34.0); Mean Corpuscular Volume 89.8 fL (80-94); Mean Platelet Volume 10.2 fL (7.4-10.4); Monocytes % 7.8 %; Neutrophils # 8.92 10^3/uL (1.8-7.7); Neutrophils % 70.1 %; Nucleated Red Blood Cells % 0 %; Platelet Count 311 10^3/cmm (130-400); Red Blood Count 5.12 10^6/uL (4.1-5.3); Red Cell Distribution Width 11.9 % (12.1-15.1); White Blood Count 12.7 10^3/uL (4.0-10.0)
[2020-08-16] MEDS: sodium chloride 0.9% 500 ML IV (13:44)
[2020-08-16] MEDS: famotidine 20 mg/2 mL INJ IVP ×2 (13:47→20:33)
[2020-08-16] MEDS: ondansetron 2 mg/ML SDV 2 mL 4 MG IVP ×2 (13:55→22:15)
[2020-08-16] MEDS: morphine 4 mg/mL SDV 1 mL 2 MG IVP ×3 (13:55→23:09)
[2020-08-16 14:14] LABS: Alanine Aminotransferase 15 U/L (0-41); Albumin Level 4.6 g/dL (3.5-5.2); Alkaline Phosphatase 55 IU/L (40-130); Aspartate Amino Transferase 18 U/L (0-40); Blood Urea Nitrogen 14 mg/dL (6-20); Calcium 9.8 mg/dL (8.5-10.5); Carbon Dioxide 22 mmol/L (22-29); Chloride 103 mmol/L (98-107); Globulin 2.7 g/dL (1.3-4.6); Glomerular Filtration Rate 152.4 mL/min (90-130); Glucose 96 mg/dL (65-115); Magnesium 1.9 mg/dL (1.7-2.3); Osmolality Calculated 288 mOsm/kg (285-295); Sodium 139 mmol/L (136-145); Thyroid Stimulating Hormone 0.53 uIU/mL (0.27-4.20); Total Bilirubin 0.8 mg/dL (0.15-1.2); Total Protein 7.3 g/dL (6.6-8.7)
[2020-08-16 14:20] LABS: Anion Gap 17.4 (5-19); Potassium 3.4 mmol/L (3.5-5.1)
--- NOTE | 2020-08-16 14:45 | CTR_ITS ---
PROCEDURE INFORMATION: Exam: CT Abdomen And Pelvis With Contrast Exam date and time: 08/16/2020 3:03 PM Age: 35 years old Clinical indication: Nausea and vomiting; Abdominal pain; Prior surgery; Surgery type: Gb, hernia TECHNIQUE: Imaging protocol: Computed tomography of the abdomen and pelvis with contrast. Radiation optimization: All CT scans at this facility use at least one of these dose optimization techniques: automated exposure control; mA and/or kV adjustment per patient size (includes targeted exams where dose is matched to clinical indication); or iterative reconstruction. Contrast material: OMNI 300; Contrast volume: 95 ml; Contrast route: INTRAVENOUS (IV); COMPARISON: CT abdomen pelvis w con* [id number] 10/04/2018 3:02 AM RADIATION DOSE METRICS: Total DLP (mGy-cm): 644.15 FINDINGS: Lungs: The lung bases appear unremarkable. Liver: The liver is unremarkable in appearance. Gallbladder and bile ducts: The gallbladder is surgically absent. No biliary dilatation. Pancreas: The pancreas is normal in appearance. No pancreatic duct dilatation. Spleen: The spleen is normal in size and appearance. Adrenal glands: The adrenal glands appear within normal limits. Kidneys and ureters: The kidneys are normal in morphology. No hydronephrosis. No solid mass. Stomach and bowel: No acute gastric abnormality demonstrated. The small bowel is unremarkable as demonstrated. Mild mural thickening of the descending and rectosigmoid portions of the colon with mild pericolonic inflammation. Findings are consistent with nonspecific colitis. Appendix: The appendix is normal in appearance. No evidence of appendicitis. Intraperitoneal space: No pneumoperitoneum. No significant fluid collection. Vasculature: The aorta is atherosclerotic. No aortic aneurysm. Lymph nodes: No pathologically enlarged lymph nodes are demonstrated. Urinary bladder: The urinary bladder is unremarkable in appearance. Reproductive: Unremarkable as visualized. Bones/joints: No fracture or other acute osseous abnormality. Soft tissues: The soft tissues appear unremarkable. CT/CT abdomen pelvis w con* [id number] IMPRESSION: 1. Mild mural thickening of the descending and rectosigmoid portions of the colon with mild pericolonic inflammation. Findings are consistent with nonspecific colitis. This is new when compared to 10/04/2018. 2. No acute abnormality demonstrated of the solid organs. Radiation Dose CTDIVOL = (mGy): DLP = 644.15 (mGy-cm)
[2020-08-16] MEDS: potassium chloride ER 20 mEq Tablet 40 MEQ PO (14:56)
[2020-08-16] MEDS: sodium chloride 0.9% 1,000 ML 100 ML IV (14:57)
[2020-08-16] MEDS: iohexol 300 mg/mL 100 mL Btl IV (16:07)
[2020-08-16] MEDS: ciprofloxacin 400 MG/200 ML PREMIX 200 MG IV (17:48)
[2020-08-16 18:21] LABS: Lipase 35 U/L (13-60)
[2020-08-16] MEDS: metroNIDAZOLE IV 500 MG/100 ML PREMIX 100 MG IV (19:06)
[2020-08-16] MEDS: tizanidine 4 mg Tablet PO (23:00)
[2020-08-16] MEDS: trazodone 150 mg Tablet PO (23:05)
[2020-08-17] VITALS (8 sets, daily range): BP systolic 93–107; BP diastolic 52–66; PULSE 48–67; RESP 16–18; TEMP 36.5–36.8; O2SAT 95–98
[2020-08-17] MEDS: metroNIDAZOLE IV 500 MG/100 ML PREMIX 100 MG IV ×2 (00:29→08:15)
[2020-08-17] MEDS: sodium chloride 0.9% 1,000 ML 100 ML IV ×2 (00:30→11:20)
[2020-08-17] MEDS: ciprofloxacin 400 MG/200 ML PREMIX 200 MG IV (05:27)
[2020-08-17 05:41] LABS: Basophils # 0.1 10^3/uL (0.0-0.1); Basophils % 1.2 %; Eosinophils % 0.6 %; Hematocrit 40.7 % (42.0-52.0); Hemoglobin 13.5 g/dL (11.7-16.6); Lymphocytes # 2.9 10^3/uL (0.8-4.8); Lymphocytes % 42.9 %; Mean Corpuscular HGB Conc 33.2 g/dL (30.0-36.0); Mean Corpuscular Hemoglobin 30.7 pg (28.0-34.0); Mean Corpuscular Volume 92.5 fL (80-94); Mean Platelet Volume 10.4 fL (7.4-10.4); Monocytes # 0.7 10^3/uL (0.2-0.9); Monocytes % 9.7 %; Neutrophils # 3.03 10^3/uL (1.8-7.7); Neutrophils % 45.3 %; Nucleated Red Blood Cells % 0 %; Platelet Count 233 10^3/cmm (130-400); Red Cell Distribution Width 11.9 % (12.1-15.1); White Blood Count 6.7 10^3/uL (4.0-10.0)
[2020-08-17] MEDS: morphine 4 mg/mL SDV 1 mL 2 MG IVP (05:45)
[2020-08-17] MEDS: ondansetron 2 mg/ML SDV 2 mL 4 MG IVP ×2 (05:45→12:11)
[2020-08-17 05:59] LABS: Blood Urea Nitrogen 11 mg/dL (6-20); Calcium 8.9 mg/dL (8.5-10.5); Carbon Dioxide 22 mmol/L (22-29); Chloride 110 mmol/L (98-107); Glomerular Filtration Rate 127.6 mL/min (90-130); Glucose 89 mg/dL (65-115); Osmolality Calculated 287 mOsm/kg (285-295); Sodium 139 mmol/L (136-145)
--- NOTE | 2020-08-17 07:40 | PC.NURSE ---
Reported pts vitals to his nurse.
[2020-08-17] MEDS: tizanidine 4 mg Tablet PO (08:14)
[2020-08-17] MEDS: famotidine 20 mg/2 mL INJ IVP (08:26)
[2020-08-17] MEDS: morphine IR 15 mg Tablet PO (11:19)
--- NOTE | 2020-08-17 13:08 | P.DS_ITS ---
Discharge Providers Date of Admission: 08/16/20 13:07 Date of Discharge: August 17, 2020 Attending Provider at Admission: Liam Cam MD Attending Provider at Discharge: Liam Cam MD Primary Care Provider: Syeda Yang DO Diagnoses at Discharge Discharge Diagnosis (1) Dehydration: Status: Acute (2) Intractable nausea and vomiting: Status: Acute (3) Abdominal pain, acute, right lower quadrant: Status: Acute Reason for Visit Reason for Visit: dehydration and vommiting Hospital Course Hospital Course Peter is a 35-year-old male who presented to his provider's office with severe nausea vomiting for the last 4 days unable to tolerate p.o. intake that was substantial. He appeared dehydrated. He was having significant abdominal discomfort. He had been unable to take his regular medication. Lipase and LFTs were normal. Electrolytes were normal with the exception of slightly low potassium. General exam no apparent distressHe was placed in the hospital in observation. He was rehydrated. Secondary to abdominal pain a CT scan abdomen and pelvis with contrast was obtained. This demonstrated mild mural thickening of the descending and rectosigmoid colon with mild pericolonic inflammation. He was put on Cipro and Flagyl. While in the hospital he had resolution of nausea vomiting as well as resolution of loose stools. No stool was ever collected. He will finish oral Cipro and Flagyl for approximately 6 more days at home. By day of discharge on August 17 he was feeling good, not having significant nausea vomiting and diarrhea had resolved. Physical Exam Narrative: EXAM NARRATIVE: General exam no apparent distress Cardiovascular regular rate and rhythm without murmur Lungs clear Abdomen is soft, positive bowel sounds. Mild epigastric tenderness. Extremities no cyanosis clubbing or edema Discharge Data Data Completed and Pending: Completed Studies During Hospitalization Category Date Time Status CT abdomen pelvis w con* [id number] Charis ine Cat Scan 08/16/20 14:45 Completed Pending at discharge Category Date Time Status Clostridioides Di fficile PCR Routin e Lab 08/17/20 08:47 Uncollected Enteric Bacterial Panel by PCR Rout ine Lab 08/17/20 08:47 Uncollected Labs from last 24 hours 08/17/20 08/17/20 08/16/20 05:20 05:20 17:21 WBC 6.7 RBC 4.40 Hgb 13.5 Hct 40.7 L MCV 92.5 MCH 30.7 MCHC 33.2 RDW 11.9 L Plt Count 233 MPV 10.4 Neut % (Auto) 45.3 Lymph % (Auto) 42.9 [place] % (Auto) 9.7 Eos % (Auto) 0.6 Baso % (Auto) 1.2 Neut # (Auto) 3.03 Lymph # (Auto) 2.9 [place] # (Auto) 0.7 Eos # (Auto) 0.0 Baso # (Auto) 0.1 Nucleated RBC % (a uto) 0 Nucleated RBCs # 0.0 Sodium 139 Potassium 4.0 Chloride 110 H Carbon Dioxide 22 Anion Gap 11.0 BUN 11 Creatinine 0.7 GFR Calculation 127.6 Glucose 89 Calculated Osmolal ity 287 Lactate Calcium 8.9 Magnesium Total Bilirubin AST ALT Alkaline Phosphata se Total Protein Albumin Globulin Lipase 35 TSH Urine Color Urine Appearance Urine pH Ur Specific Gravit y Urine Protein Urine Glucose (UA) Urine Ketones Urine Blood Urine Nitrate Urine Bilirubin Urine Urobilinogen Ur Leukocyte Sujata ase 08/16/20 08/16/20 08/16/20 15:25 13:30 13:30 WBC RBC Hgb Hct MCV MCH MCHC RDW Plt Count MPV Neut % (Auto) Lymph % (Auto) [place] % (Auto) Eos % (Auto) Baso % (Auto) Neut # (Auto) Lymph # (Auto) [place] # (Auto) Eos # (Auto) Baso # (Auto) Nucleated RBC % (a uto) Nucleated RBCs # Sodium 139 Potassium 3.4 L Chloride 103 Carbon Dioxide 22 Anion Gap 17.4 BUN 14 Creatinine 0.6 L GFR Calculation 152.4 H Glucose 96 Calculated Osmolal ity 288 Lactate 1.0 Cancelled Calcium 9.8 Magnesium 1.9 Total Bilirubin 0.8 AST 18 ALT 15 Alkaline Phosphata se 55 Total Protein 7.3 Albumin 4.6 Globulin 2.7 Lipase TSH 0.53 Urine Color Urine Appearance Urine pH Ur Specific Gravit y Urine Protein Urine Glucose (UA) Urine Ketones Urine Blood Urine Nitrate Urine Bilirubin Urine Urobilinogen Ur Leukocyte Sujata ase 08/16/20 08/16/20 08/16/20 13:30 13:30 12:34 WBC 12.7 H RBC 5.12 Hgb 15.3 Hct 46.0 MCV 89.8 MCH 29.9 MCHC 33.3 RDW 11.9 L Plt Count 311 MPV 10.2 Neut % (Auto) 70.1 Lymph % (Auto) 21.2 [place] % (Auto) 7.8 Eos % (Auto) 0.1 Baso % (Auto) 0.5 Neut # (Auto) 8.92 H Lymph # (Auto) 2.7 [place] # (Auto) 1.0 H Eos # (Auto) 0.0 Baso # (Auto) 0.1 Nucleated RBC % (a uto) 0 Nucleated RBCs # 0.0 Sodium Potassium Chloride Carbon Dioxide Anion Gap BUN Creatinine GFR Calculation Glucose Calculated Osmolal ity Lactate Calcium Magnesium Total Bilirubin AST ALT Alkaline Phosphata se Total Protein Albumin Globulin Lipase TSH Cancelled Urine Color Yellow Urine Appearance Clear Urine pH 7 Ur Specific Gravit y 1.005 Urine Protein Neg Urine Glucose (UA) Norm Urine Ketones 1+ H Urine Blood Neg Urine Nitrate Negative Urine Bilirubin Neg Urine Urobilinogen Norm Ur Leukocyte Sujata ase Negative Vitals: Last Vital Signs Temp 97.8 F 08/17/20 10:57 Pulse 53 L 08/17/20 10:57 Resp 18 08/17/20 11:19 BP 93/60 08/17/20 10:57 Pulse Ox 97 08/17/20 10:57 Discharge Plan Discharge Patient Disposition: Home Condition: Stable Prescriptions: New Flagyl 500 mg tablet 500 mg PO QID Qty: 24 RF: 0 ciprofloxacin HCl 500 mg tablet 500 mg PO BID Qty: 12 RF: 0 Continued pantoprazole 40 mg Tablet,Delayed Release (Dr/Ec) 40 mg PO BID RF: 0 tizanidine 4 mg Tablet 4 mg PO TID PRN (Reason: Spasms) RF: 0 diazepam 5 mg Tablet 5 mg PO BID PRN (Reason: Anxiety) RF: 0 lovastatin 10 mg Tablet 10 mg PO DAILY RF: 0 morphine 15 mg Tablet 15 mg PO Q4H PRN (Reason: Pain) RF: 0 Discontinued ibuprofen 200 mg Capsule 200 mg PO Q6H PRN (Reason: Pain) RF: 0 acetaminophen-codeine [Tylenol-Codeine #4] 300-60 mg Tablet 1 tab PO TID PRN (Reason: Pain) RF: 0 naproxen 500 mg Tablet 500 mg PO BID RF: 0 Discharge Orders: Discharge Order (Routine); Ordered 08/17/20 Ordered By: Liam Cam Referrals: Elieser Nelson MD [Physician] - 08/30/20 11:00 am Syeda Yang DO [Primary Care Provider] - 08/28/20 3:00 pm Discharge Diet: Soft Mechanical Discharge Activity: Increase activity as tolerated Patient Instructions: Ciprofloxacin (By mouth), Metronidazole (By mouth) Activity Restrictions/Additional Instructions: Soft, low-fat diet. Finish antibiotics. Follow-up with your primary care provider 3 to 5 days. Discharge Attestations Time Spent in Discharge Care*: greater than 30 min Quality Metrics Clinical Quality Measures During this hospital stay, did patient experience: None Coding Level of Care Code Acute Chg FW DC note Diagnoses Dehydration E86.0 Intractable nausea and vomiting R11.2 Abdominal pain, acute, right lower quadrant R10.31
[2020-08-17] MEDS: acetaminophen 325 mg Tablet 650 MG PO (14:06)
--- NOTE | 2020-08-18 16:28 | PC.RESP ---
Pulmonary Rehab information sent to patient.
== END 2020-08-17 14:50 | disposition home or self-care (01) ==
PROVIDERS: Admitting Provider Internal Medicine; PCP Family Medicine; Visit Provider Internal Medicine
DX: E86.0 Dehydration (principal); R11.2 Nausea with vomiting, unspecified; R10.31 Right lower quadrant pain; J44.9 Chronic obstructive pulmonary disease, unspecified; Z87.11 Personal history of peptic ulcer disease; Z82.49 Family history of ischemic heart disease and other diseases of the circulatory system; Z87.891 Personal history of nicotine dependence
CPT/HCPCS: 36415; 74177; 80048; 80053; 81003; 83605; 83690; 83735; 84443; 85025; G0378; G0379; J0744; J2270; J2405; J3490; J7030; J7040; Q9967; S0030

== ENCOUNTER 2020-10-19 12:39 | Emergency (ER) | payer OTHER, SELFPAY ==
[2020-10-19 12:41] VITALS: BP 141/91; PULSE 61; RESP 27; TEMP 36.6; O2SAT 100; BMI 19.2
--- NOTE | 2020-10-19 12:51 | CT_ITS ---
WS: [id number] CT CHEST, ABDOMEN AND PELVIS WITH CONTRAST. HISTORY: vomiting, diarrhea, weight loss TECHNIQUE: Contiguous 5 mm axial imaging performed through the chest, abdomen and pelvis with IV cont rast, oral contrast has been provided. Coronal and sagittal reformats chest. Coronal and sagittal ref ormats through the abdomen and pelvis. All CT scans at [facility] use at least one of the se dose optimization techniques: automated exposure control; mA and/or kV adjustment per patient size (includes targeted exams where dose is matched to clinical indication); or iterative reconstruction. CONTRAST: Omnipaque 300; 95 mL IV. DLP: 1041.32 mGy.cm COMPARISON: 08/16/2020 and 02/09/[address]: Mild paraseptal emphysema. Stable fibrosis at the LEFT apex. No mass or pulmonary nodule. M ild ectasia ascending thoracic aorta. No aneurysm. Normal size pulmonary artery. No mediastinal or hi lar adenopathy. Heart size is normal. No pericardial or pleural effusions. No osteoblastic or osteoly tic bone disease. Mild anterior wedging of T4, T5 and T7. Abdomen CT: Prior cholecystectomy. Liver, spleen, adrenal glands and RIGHT kidney are normal. Atrophi ed pancreas. Cyst in the lower pole LEFT kidney measures 2.8 cm and is stable. No hydronephrosis. Nor mal aorta. No free air. No GI tract obstruction. The appendix is partially visualized and normal. Pelvic CT: No free fluid in the pelvis. No adenopathy. Urinary bladder is well distended. CT/CT chest abd pel w con* IMPRESSION: 1. Mild paraseptal emphysema. No pneumonia. 2. No adenopathy within the chest, abdomen or pelvis. 3. No ascites. 4. Prior cholecystectomy. 5. Stable LEFT renal cyst. 6. No significant bowel wall thickening. No obstructive pattern.
--- NOTE | 2020-10-19 12:54 | W.ED.NAVMDI ---
HPI - Nausea/Vomiting/Diarrhea General: Chief complaint: Nausea/Vomiting/Diarrhea Stated complaint: nausea/vomitting, dizziness and fall Time Seen by Provider: 10/19/20 12:42 History of Present Illness: HPI Narrative: 35-year-old male who has had vomiting and diarrhea too numerous times to count over the past 3 days Associated with abdominal pain. Pain is midline it is a sharp stabbing to cramping type pain he is vomited 6 times just prior to arrival he is now feeling so weak that he nearly collapsed in the waiting room however he denies any injuries. He has had similar symptoms like this before in August where he was diagnosed with a colitis and put on antibiotics. However states this is similar in nature but that he is lost almost 18 pounds since August. He is a previous smoker possible history of ulcers denies any dark bloody or melanotic stools. he has had his gallbladder removed and another hernia repair. Review of Systems Narrative: General: denies fatigue, fever or chills, generalized weakness difficulty with activities due to how weak he is HEENT: denies ear pain, denies nasal congestion, denies vision changes, denies sore throat Neck: denies masses or pain Resp: denies cough, denies shortness of breath, denies pleuritic pain Cardio: denies chest pain, denies edema GI: See HPI : denies hematuria, denies dysuria Neuro: denies headache, denies dizziness, denies motor or sensory changes Musculoskeletal: denies pain, denies swelling Skin: denies rashes Psych: denies SI or HI Endocrine: denies thyroid symptoms, denies lymphadenopathy all over ROS reviewed and patient denies PFSH ED PFSH: Medical History Chronic post-traumatic stress disorder COPD, mild Depression Frequent headaches Gastritis Generalized anxiety disorder Lower urinary tract symptoms (LUTS) Major depressive disorder, recurrent, in full remission with anxious distress Medical marijuana use Neuropathy Nicotine dependence, other tobacco product, uncomplicated Vaping Peptic ulcer disease Polyuria Seizures Surgical History H/O oral surgery History of endoscopy Hx of umbilical hernia repair Status post laparoscopic cholecystectomy (02/21/20) Family History Mother History of shingles Grandfather Myocardial infarction CAD (coronary artery disease) Other Cancer Diabetes Denies family history of Anesthesia complication Bleeding disorder Social History Smoking and tobacco status: former smoker Alcohol intake: never Household members: spouse Marital status: Current occupational status: employed History of recent travel: No Physical Exam Narrative: EXAM NARRATIVE: General: a/o/3, ill-appearing Head: atraumatic HEENT: normal eyes, normal conjunctiva, normal hearing, normal external nose, normal mouth, mucous membranes dry Neck: FROM, trachea midline Chest: normal expansion, no gross deformities Resp: normal speech, no retractions, no accessory muscle use, CTA bilaterally Cardio: regular rate and rhythm and no murmur, no peripheral edema, normal peripheral pulses GI: soft, flat midline abdominal pain decreased bowel sounds, no guarding normal BS : deferred Musculoskeletal: FROM, no pain or gross deformities Neuro: a/o appropriate for age, no gross motor or sensory deficits, CN II-XII grossly intact, normal coordination, normal speech Skin: no rashes Psych: cooperative, normal mood and effect Course Vital Signs: Vital signs: Vital Signs Temperature 97.9 F 10/19/20 12:41 Pulse Rate 70 10/19/20 16:11 Respiratory Rate 16 10/19/20 16:11 Blood Pressure 112/70 10/19/20 16:11 Pulse Oximetry 98 10/19/20 16:11 MDM - Nausea/Vomiting/Diarrhea MDM Narrative: Medical decision making narrative: Patient just had some mild bilious vomit in the ER nothing projectile or significant. Pain medication helped he was given IV Zofran as well as Reglan and that also helped. His laboratory work is unremarkable as is his CT of his chest abdomen and pelvis he does use marijuana for anxiety and back pain but says he has not used in a while he also does take morphine At this point he was given 2 L of fluid he had no further emesis in the ER he is a frail looking cachectic person discussed with him following up it sounds like he has had an upper and lower GI test although I do not know specifically which one they were not certain but I discussed with them gastritis and/or EGDs Medical Records: Attestation: I reviewed the patient's medical records. Lab Data: Attestation: I reviewed the patient's lab results. Labs: Lab Results 10/19/20 10/19/20 10/19/20 Range/Units 12:54 12:54 12:54 WBC 11.3 H (4.0-10.0) 10^3/ uL RBC 5.53 H (4.1-5.3) 10^6/u L Hgb 16.8 H (11.7-16.6) g/dL Hct 47.6 (42.0-52.0) % MCV 86.1 (80-94) fL MCH 30.4 (28.0-34.0) pg MCHC 35.3 (30.0-36.0) g/dL RDW 11.7 L (12.1-15.1) % Plt Count 268 (130-400) 10^3/c mm MPV 10.5 H (7.4-10.4) fL Neut % (Auto) 67.6 % Lymph % (Auto) 24.1 % [place] % (Auto) 7.2 % Eos % (Auto) 0.1 % Baso % (Auto) 0.4 % Neut # (Auto) 7.62 (1.8-7.7) 10^3/u L Lymph # (Auto) 2.7 (0.8-4.8) 10^3/u L [place] # (Auto) 0.8 (0.2-0.9) 10^3/u L Eos # (Auto) 0.0 (0.0-0.8) 10^3/u L Baso # (Auto) 0.0 (0.0-0.1) 10^3/u L Nucleated RBC % (a uto) 0 % Nucleated RBCs # 0.0 /100WBC Sodium 141 (136-145) mmol/L Potassium 3.1 L (3.5-5.1) mmol/L Chloride 101 (98-107) mmol/L Carbon Dioxide 22 (22-29) mmol/L Anion Gap 21.1 H (5-19) BUN 14 (6-20) mg/dL Creatinine 0.6 L (0.7-1.2) mg/dL GFR Calculation 152.4 H (90-130) mL/min Glucose 102 (65-115) mg/dL Calculated Osmolal ity 293 (285-295) mOsm/k g Lactate 2.6 H (0.5-2.2) mmol/L Calcium 9.8 (8.5-10.5) mg/dL Total Bilirubin 0.6 (0.15-1.2) mg/dL AST 17 (0-40) U/L ALT 16 (0-41) U/L Alkaline Phosphata se 71 (40-130) IU/L Total Protein 7.8 (6.6-8.7) g/dL Albumin 5.5 H (3.5-5.2) g/dL Globulin 2.3 (1.3-4.6) g/dL Lipase 51 (13-60) U/L Discharge Plan Discharge Patient Disposition: Home Clinical Impression: Gastroenteritis Condition: Stable Prescriptions: New promethazine 25 mg tablet 25 mg PO Q6H Qty: 12 RF: 0 dicyclomine 20 mg tablet 20 mg PO QID Qty: 20 RF: 0 No Action meloxicam 15 mg tablet 15 mg PO DAILY Qty: 90 RF: 3 tamsulosin [Flomax] 0.4 mg capsule 0.4 mg PO BEDTIME RF: 0 ondansetron 4 mg tablet,disintegrating 4 mg PO Q8H PRN (Reason: nausea and vomiting) Qty: 10 RF: 0 pantoprazole 40 mg Tablet,Delayed Release (Dr/Ec) 40 mg PO BID RF: 0 tizanidine 4 mg Tablet 4 mg PO TID PRN (Reason: Spasms) RF: 0 lovastatin 10 mg Tablet 10 mg PO BEDTIME RF: 0 morphine 15 mg Tablet 15 mg PO Q4H PRN (Reason: Pain) RF: 0 multivitamin Tablet 1 tab PO DAILY RF: 0 diazepam 5 mg tablet 5 mg PO BID PRN (Reason: ANXIETY/SEIZURES) RF: 0 Trelegy Ellipta 100-62.5-25 mcg blister with device 1 inh INHALATION DAILY RF: 0 trazodone 150 mg tablet 150 mg PO BEDTIME PRN (Reason: insomnia) RF: 0 Prozac 20 mg capsule 20 mg PO QAM RF: 0 Discharge Orders: Discharge ED (Routine); Ordered 10/19/20 Ordered By: Bela Ro Referrals: Syeda Yang DO [Primary Care Provider] - Discharge Diet: Advance as tolerated Patient Instructions: Gastroenteritis (ED), Opioid Safety Activity Restrictions/Additional Instructions: Advance her diet as tolerated you can use the promethazine for nausea and vomiting and could alternate it with your Ondansetron (zofran) Dicyclomine for cramping and abdominal pain Recommend you follow-up with your provider to determine if you need further work-up and/or testing return if weakness worsening of symptoms fevers unable to keep food or fluids down Thank you for choosing [facility] for your healthcare needs today. Please realize this is an emergency room and that we are providing you with a medical screening exam and this may not be complete and all inclusive of all the testing and or work up that you may need to determine your ailment or severity of your illness. It is very important that you follow up as instructed or that you return to the Emergency Department should you have concerns or if your condition changes or worsens in any way. Coding Level of Care Code ED Hand Grinder for Alexis Gonzalez
[2020-10-19 13:12] LABS: Basophils % 0.4 %; Eosinophils % 0.1 %; Hematocrit 47.6 % (42.0-52.0); Hemoglobin 16.8 g/dL (11.7-16.6); Lymphocytes # 2.7 10^3/uL (0.8-4.8); Lymphocytes % 24.1 %; Mean Corpuscular HGB Conc 35.3 g/dL (30.0-36.0); Mean Corpuscular Hemoglobin 30.4 pg (28.0-34.0); Mean Corpuscular Volume 86.1 fL (80-94); Mean Platelet Volume 10.5 fL (7.4-10.4); Monocytes # 0.8 10^3/uL (0.2-0.9); Monocytes % 7.2 %; Neutrophils # 7.62 10^3/uL (1.8-7.7); Neutrophils % 67.6 %; Nucleated Red Blood Cells % 0 %; Platelet Count 268 10^3/cmm (130-400); Red Blood Count 5.53 10^6/uL (4.1-5.3); Red Cell Distribution Width 11.7 % (12.1-15.1); White Blood Count 11.3 10^3/uL (4.0-10.0)
[2020-10-19 13:26] LABS: Lactate (Lactic Acid level) 2.6 mmol/L (0.5-2.2)
[2020-10-19 13:28] LABS: Alanine Aminotransferase 16 U/L (0-41); Albumin Level 5.5 g/dL (3.5-5.2); Alkaline Phosphatase 71 IU/L (40-130); Anion Gap 21.1 (5-19); Aspartate Amino Transferase 17 U/L (0-40); Blood Urea Nitrogen 14 mg/dL (6-20); Calcium 9.8 mg/dL (8.5-10.5); Carbon Dioxide 22 mmol/L (22-29); Chloride 101 mmol/L (98-107); Globulin 2.3 g/dL (1.3-4.6); Glomerular Filtration Rate 152.4 mL/min (90-130); Glucose 102 mg/dL (65-115); Lipase 51 U/L (13-60); Osmolality Calculated 293 mOsm/kg (285-295); Potassium 3.1 mmol/L (3.5-5.1); Sodium 141 mmol/L (136-145); Total Bilirubin 0.6 mg/dL (0.15-1.2); Total Protein 7.8 g/dL (6.6-8.7)
[2020-10-19] MEDS: ondansetron 2 mg/ML SDV 2 mL 4 MG IVP ×2 (13:32→16:03)
[2020-10-19] MEDS: fentaNYL 50 mcg/mL INJ 2mL 100 MCG IVP (13:32)
[2020-10-19] MEDS: sodium chloride 0.9% 1,000 ML 999 ML IV ×2 (13:32→13:59)
[2020-10-19 13:42] VITALS: BP 120/68; PULSE 58; RESP 18; O2SAT 98
[2020-10-19] MEDS: iohexol 300 mg/mL 100 mL Btl IV (13:47)
[2020-10-19] MEDS: metoclopramide 5 mg/mL SDV 2 mL 10 MG IVP (14:08)
[2020-10-19 14:46] VITALS: BP 127/72; PULSE 68; RESP 21; O2SAT 98
[2020-10-19 15:00] VITALS: RESP 15
[2020-10-19 16:11] VITALS: BP 112/70; PULSE 70; RESP 16; O2SAT 98
== END 2020-10-19 16:13 | disposition home or self-care (01) ==
PROVIDERS: Emergency Provider Emergency Medicine; PCP Family Medicine
DX: K52.9 Noninfective gastroenteritis and colitis, unspecified (principal); J44.9 Chronic obstructive pulmonary disease, unspecified; Z87.891 Personal history of nicotine dependence
CPT/HCPCS: 71260; 74177; 80053; 83605; 83690; 85025; 96361; 96374; 96375; 96376; 99284; J2405; J2765; J3010; J7030; Q9967

== ENCOUNTER 2020-11-07 07:12 | Outpatient (CLI) | payer OTHER, SELFPAY ==
--- NOTE | 2020-11-07 07:17 | MR_ITS ---
WS: [id number] MRI/MRCP OF THE ABDOMEN WITHOUT GADOLINIUM ENHANCEMENT TECHNIQUE: Thin and thick slab MRCP, Axial T2, Coronal MRCP, Axial Dual Echo, and Axial 2-D Fiesta imaging was obtained. Coronal 2-D Fiesta imaging. CLINICAL INFORMATION: eval biliary tree COMPARISON: CT October 19, 2020 FINDINGS: Some images are degraded by patient motion. Fluid distended stomach with food products. Gastric rugal thickening can be seen with gastritis. Prior cholecystectomy. Mild diffuse fatty infiltration liver. Normal portal vein and splenic vein. Pa ncreas and pancreatic head appear normal. No intrahepatic biliary ductal dilatation. Normal common bi le duct. No fluid collections in the gallbladder fossa. Adrenal glands are normal. No hydronephrosis in either kidney. Lobulated cyst lower pole left kidney measuring 2.8 cm. Emphysematous changes in the lung bases. Normal caliber abdominal aorta. No upper abdominal lymphaden opathy. MR/MR MRCP [id number] Impression: 1. Prior cholecystectomy. No evidence of fluid in the gallbladder fossa or jerrod iary leak. 2. No intrahepatic biliary ductal dilatation. Normal common bile duct. 3. Pancreas and pancreatic head are normal in appearance. Normal pancreatic du ct and distal common bile duct. 4. Left renal cyst measuring 2.8 cm left lower pole. No hydronephrosis in eith er kidney. 5. No abdominal lymphadenopathy. 6. Gastric rugal thickening likely due to gastritis. This is similar to the pr ior CT.
== END 2020-11-07 07:13 | disposition home or self-care (01) ==
PROVIDERS: PCP Internal Medicine; Visit Provider Internal Medicine
DX: R10.12 Left upper quadrant pain (principal); Z90.49 Acquired absence of other specified parts of digestive tract; Q61.01 Congenital single renal cyst
CPT/HCPCS: 74181; 83690

== ENCOUNTER 2021-01-31 12:03 | Observation (INO) | payer OTHER, SELFPAY ==
[2021-01-31] VITALS (10 sets, daily range): BP systolic 124–156; BP diastolic 75–87; PULSE 59–87; RESP 17–22; TEMP 36.7–37.5; O2SAT 95–100; BMI 22.6; BMI 23.1
--- NOTE | 2021-01-31 12:26 | ED_ITS ---
HPI - Nausea/Vomiting/Diarrhea General: Chief complaint: Nausea/Vomiting/Diarrhea Stated complaint: N/V; SHAKING;CHILLED Time Seen by Provider: 01/31/21 12:26 History of Present Illness: HPI Narrative: Mr. Brito is a 36-year-old gentleman with complex past medical history including chronic abdominal pain, chronic back pain, chronic use of narcotics, history of marijuana use, hyperlipidemia, and COPD who presents to the emergency department due to nausea and vomiting. Symptom onset was yesterday and subacute. He endorses multiple episodes of nonbloody diarrhea and nonbloody emesis. He has associated abdominal discomfort. He has generalized malaise and has not been able to keep his medications down. No other infectious symptoms. Intensity of symptoms is severe. Course has been persistent. He has had similar episodes in the past. No other specific exacerbating relieving factors identified. Review of Systems General: Reports: 10 or more systems reviewed and unremarkable except in HPI and below PFSH ED PFSH: Medical History Chronic post-traumatic stress disorder COPD, mild Depression Frequent headaches Gastritis Generalized anxiety disorder Lower urinary tract symptoms (LUTS) Major depressive disorder, recurrent, in full remission with anxious distress Medical marijuana use Neuropathy Nicotine dependence, other tobacco product, uncomplicated Vaping Peptic ulcer disease Polyuria Seizures Surgical History H/O oral surgery History of endoscopy Hx of umbilical hernia repair Status post laparoscopic cholecystectomy (02/21/20) Family History Mother History of shingles Grandfather Myocardial infarction CAD (coronary artery disease) Other Cancer Diabetes Denies family history of Anesthesia complication Bleeding disorder Social History Smoking and tobacco status: former smoker Alcohol intake: never Household members: spouse Marital status: Current occupational status: employed History of recent travel: No Physical Exam Narrative: EXAM NARRATIVE: GENERAL/CONSTITUTIONAL -ill, vomiting Eyes - PERRL, no conjunctival injection ENMT - Atraumatic external nose and ears. Dry mucous membranes NECK - supple. trachea midline CARDIOVASCULAR -tachycardic rate and rhythm. Peripheral pulses 2+ and equal RESPIRATORY -clear to auscultation bilaterally. No retractions or accessory muscle use. ABDOMEN/GI -generalized tender to palpation. Nondistended. No tenderness to percussion or evidence of peritonitis MSK - Extremities without obvious deformity or tenderness to palpation SKIN - Warm, Dry NEURO - alert and appropriately oriented. Moves all extremities equally. PSYCH - Appropriate mood and affect Course ED course: - Patient was seen and evaluated by me at bedside - Patient placed on cardiac monitors, IV access obtained - Initial evaluation notable for ill appearance, distressed due to vomiting, dehydrated appearing -Symptom treatment ordered - Labs notable for leukocytosis to a degree that is not typical of prior presentations - Imaging notable for no acute abnormality on CT abdomen and pelvis to explain symptoms - Upon serial reexamination after treatment the patient was mildly improved. Despite multiple rounds of antiemetic and IV fluid hydration the patient was unable to tolerate p.o. intake - Based on patient history, evaluation, labs, and imaging as interpreted the most likely cause of the patient's condition is nausea, vomiting, diarrhea - The results of ED evaluation were discussed with the patient including plan for admission due to requirement for level of care not available if discharged to prevent significant worsening/deterioration. - Admitting service was contacted and Dr Jama with hospitalist service agreed to admit the patient - Patient was admitted without further deterioration or significant events. Vital Signs: Vital signs: Vital Signs Temperature 98.2 F 02/01/21 15:09 Pulse Rate 72 02/01/21 15:09 Respiratory Rate 17 02/01/21 15:09 Blood Pressure 120/70 02/01/21 15:09 Pulse Oximetry 95 02/01/21 15:09 MDM - Nausea/Vomiting/Diarrhea Medical Records: Attestation: I reviewed the patient's medical records. Lab Data: Attestation: I reviewed the patient's lab results. Labs: Lab Results 01/31/21 01/31/21 01/31/21 12:45 12:45 12:45 WBC 26.4 10^3/uL H 10 ^3/uL (4.0-10.0) RBC 5.13 10^6/uL 10^6 /uL (4.1-5.3) Hgb 15.9 g/dL g/dL (11.7-16.6) Hct 46.2 % % (42.0-52.0) MCV 90.1 fl fl (80-94) MCH 31.0 pg pg (28.0-34.0) MCHC 34.4 g/dL g/dL (30.0-36.0) RDW 11.9 % L % (12.1-15.1) Plt Count 267 10^3/cmm 10^3 /cmm (130-400) MPV 10.7 fL H fL (7.4-10.4) Neut % (Auto) 61.9 % % Lymph % (Auto) 31.3 % % [place] % (Auto) 5.0 % % Eos % (Auto) 0.2 % % Baso % (Auto) 0.4 % % Neut # (Auto) 16.35 10^3/uL H 1 0^3/uL (1.8-7.7) Lymph # (Auto) 8.2 10^3/uL H 10^ 3/uL (0.8-4.8) [place] # (Auto) 1.3 10^3/uL H 10^ 3/uL (0.2-0.9) Eos # (Auto) 0.0 10^3/uL 10^3/ uL (0.0-0.8) Baso # (Auto) 0.1 10^3/uL 10^3/ uL (0.0-0.1) Nucleated RBC % (a uto) 0 % % Nucleated RBCs # 0.0 /100WBC /100W BC Sodium 142 mmol/L mmol/L (136-145) Potassium 3.4 mmol/L L mmol /L (3.5-5.1) Chloride 105 mmol/L mmol/L (98-107) Carbon Dioxide 23 mmol/L mmol/L (22-29) Anion Gap 17.4 (5-19) BUN 8 mg/dL mg/dL (6-20) Creatinine 0.6 mg/dL L mg/dL (0.7-1.2) GFR Calculation 151.6 mL/min H mL /min (90-130) Glucose 126 mg/dL H mg/dL (65-115) Calculated Osmolal ity 294 mOsm/kg mOsm/ kg (285-295) Calcium 9.7 mg/dL mg/dL (8.5-10.5) Total Bilirubin 0.4 mg/dL mg/dL (0.15-1.2) AST 30 U/L U/L (0-40) ALT 37 U/L U/L (0-41) Alkaline Phosphata se 80 IU/L IU/L (40-130) Total Protein 7.6 g/dL g/dL (6.6-8.7) Albumin 5.0 g/dL g/dL (3.5-5.2) Globulin 2.6 g/dL g/dL (1.3-4.6) Lipase 24 U/L U/L (13-60) Urine Color Yellow (Yellow) Urine Appearance Clear (CLEAR) Urine pH 7 (5-7) Ur Specific Gravit y 1.010 (1.005-1.030) Urine Protein Neg (Negative) Urine Glucose (UA) Norm (Normal) Urine Ketones Negative (Negative) Urine Blood Neg (Negative) Urine Nitrate Negative (Negative) Urine Bilirubin Neg (Negative) Urine Urobilinogen Norm mg/dL mg/dL (Negative) Ur Leukocyte Sujata ase Negative (Negative) Urine Opiates Scre en Ur Barbiturates Sc reen Ur Phencyclidine S crn Ur Amphetamines Sc reen U Benzodiazepines Scrn Urine Cocaine Scre en U Marijuana (THC) Screen 01/31/21 12:45 WBC RBC Hgb Hct MCV MCH MCHC RDW Plt Count MPV Neut % (Auto) Lymph % (Auto) [place] % (Auto) Eos % (Auto) Baso % (Auto) Neut # (Auto) Lymph # (Auto) [place] # (Auto) Eos # (Auto) Baso # (Auto) Nucleated RBC % (a uto) Nucleated RBCs # Sodium Potassium Chloride Carbon Dioxide Anion Gap BUN Creatinine GFR Calculation Glucose Calculated Osmolal ity Calcium Total Bilirubin AST ALT Alkaline Phosphata se Total Protein Albumin Globulin Lipase Urine Color Urine Appearance Urine pH Ur Specific Gravit y Urine Protein Urine Glucose (UA) Urine Ketones Urine Blood Urine Nitrate Urine Bilirubin Urine Urobilinogen Ur Leukocyte Sujata ase Urine Opiates Scre en Positive ng/mL H ng/mL (Negative) Ur Barbiturates Sc reen Negative ng/mL ng /mL (Negative) Ur Phencyclidine S crn Negative ng/mL ng /mL (Negative) Ur Amphetamines Sc reen Negative ng/mL ng /mL (Negative) U Benzodiazepines Scrn Positive ng/mL H ng/mL (Negative) Urine Cocaine Scre en Negative ng/mL ng /mL (Negative) U Marijuana (THC) Screen Positive ng/mL H ng/mL (Negative) EKG Data^: EKG 1: Attestation: I personally reviewed and interpreted this EKG as follows: EKG interpretation date: 01/31/21 EKG interpretation time: 13:39 Interpretation: Twelve-lead EKG shows a regular rhythm at a rate of 71. SC interval 169. QRS duration 85. QTc 406. Normal [place]. Limited interpretation due to baseline. Interpretation: Sinus rhythm. Limited interpretation. Obtained primarily for QTc which was normal.. Discharge Plan Discharge Patient Disposition: Home Clinical Impression: Diarrhea, Abdominal pain, Hypokalemia Nausea & vomiting Qualifiers: Vomiting type: unspecified Vomiting Intractability: intractable Qualified Code(s): R11.2 - Nausea with vomiting, unspecified Leukocytosis Qualifiers: Leukocytosis type: unspecified Qualified Code(s): D72.829 - Elevated white blood cell count, unspecified Condition: Stable Discharge Diet: Advance as tolerated and Clear Liquid Discharge Activity: Increase activity as tolerated Coding Level of Care Code ED Insurance Counsel for Kathig Carlos
--- NOTE | 2021-01-31 12:49 | ECG_ITS ---
[facility] Test Date: 2021-01-31 Pat Name: Peter Brito Department: Room: Gender: Male [employer] Super[employer]: : 1985 Requested By: Chapincito Manuel Order Number: [id number] Marcia MD: Ginny Richard M.D. Measurements Intervals [place] Rate: 71 P: 67 AR: 169 QRS: 5 QRSD: 85 T: 49 QT: 384 QTc: 417 Interpretive Statements SINUS RHYTHM POSSIBLE RIGHT VENTRICULAR CONDUCTION DELAY [RSR (QR) IN V1/V2] Compared to ECG 02/16/2018 18:09:15 No significant changes Electronically Signed On 01-31-2021 23:50:36 CDT by Ginny Richard M.D. [email or web address]
[2021-01-31 13:01] LABS: Basophils # 0.1 10^3/uL (0.0-0.1); Basophils % 0.4 %; Eosinophils % 0.2 %; Hematocrit 46.2 % (42.0-52.0); Hemoglobin 15.9 g/dL (11.7-16.6); Lymphocytes # 8.2 10^3/uL (0.8-4.8); Lymphocytes % 31.3 %; Mean Corpuscular HGB Conc 34.4 g/dL (30.0-36.0); Mean Corpuscular Volume 90.1 fl (80-94); Mean Platelet Volume 10.7 fL (7.4-10.4); Monocytes # 1.3 10^3/uL (0.2-0.9); Neutrophils # 16.35 10^3/uL (1.8-7.7); Neutrophils % 61.9 %; Nucleated Red Blood Cells % 0 %; Platelet Count 267 10^3/cmm (130-400); Red Blood Count 5.13 10^6/uL (4.1-5.3); Red Cell Distribution Width 11.9 % (12.1-15.1); White Blood Count 26.4 10^3/uL (4.0-10.0)
[2021-01-31 13:27] LABS: Alanine Aminotransferase 37 U/L (0-41); Alkaline Phosphatase 80 IU/L (40-130); Anion Gap 17.4 (5-19); Aspartate Amino Transferase 30 U/L (0-40); Blood Urea Nitrogen 8 mg/dL (6-20); Calcium 9.7 mg/dL (8.5-10.5); Carbon Dioxide 23 mmol/L (22-29); Chloride 105 mmol/L (98-107); Creatinine Clr Calc Pharmacy 151.8325; Globulin 2.6 g/dL (1.3-4.6); Glomerular Filtration Rate 151.6 mL/min (90-130); Glucose 126 mg/dL (65-115); Lipase 24 U/L (13-60); Osmolality Calculated 294 mOsm/kg (285-295); Potassium 3.4 mmol/L (3.5-5.1); Sodium 142 mmol/L (136-145); Total Bilirubin 0.4 mg/dL (0.15-1.2); Total Protein 7.6 g/dL (6.6-8.7)
--- NOTE | 2021-01-31 13:31 | PC.PHAR ---
PT STATES HE TAKES CARE OF HIS OWN MEDICATIONS-PT STATES HE TOOK HIS MORPHINE 15MG,ZOFRAN 4MG AND PROMETHAZINE 25MG AT 10:00 THIS AM BUT STATES HE THEN THREW IT UP
[2021-01-31] MEDS: ondansetron 2 mg/ML SDV 2 mL 4 MG IVP ×3 (13:35→22:55)
[2021-01-31] MEDS: lactated ringers 1,000 ML 999 ML IV ×2 (13:36→15:12)
[2021-01-31 13:45] LABS: Slide Review Slide Review Perform
--- NOTE | 2021-01-31 13:47 | XR_ITS ---
WS: [id number] Portable AP upright chest, 01/31/2021 Clinical Data: abnormal breath sounds Comparison: Portable chest, 05/21/2019. Findings: No nodules, masses or effusions are seen. The heart is normal. The pulmonary vascularity is not increased. No pneumonia or pneumothorax is seen. XR/XR chest 1V portable [id number] Impression: Negative chest.
--- NOTE | 2021-01-31 13:47 | CTR_ITS ---
PROCEDURE INFORMATION: Exam: CT Abdomen And Pelvis With Contrast Exam date and time: 01/31/2021 1:47 PM Age: 36 years old Clinical indication: Nausea; Abdominal pain; Prior surgery; Surgery type: Gb, hernia; Additional info: N/v/d, leukocytosis TECHNIQUE: Imaging protocol: Computed tomography of the abdomen and pelvis with contrast. Radiation optimization: All CT scans at this facility use at least one of these dose optimization techniques: automated exposure control; mA and/or kV adjustment per patient size (includes targeted exams where dose is matched to clinical indication); or iterative reconstruction. Contrast material: OMNI 300; Contrast volume: 95 ml; Contrast route: INTRAVENOUS (IV); COMPARISON: MR MRCP [id number] 11/07/2020 7:45 AM RADIATION DOSE METRICS: Total DLP (mGy-cm): 862.66 FINDINGS: Mediastinal space: Small hiatal hernia. Liver: Normal. No mass. Gallbladder and bile ducts: Cholecystectomy clips. Pancreas: Normal. No ductal dilation. Spleen: Normal. No splenomegaly. Adrenal glands: Normal. No mass. Kidneys and ureters: 3 mm nonobstructing calculus at the upper pole of the left kidney. 2 cm cyst at the lower pole of the left kidney. Stomach and bowel: Unremarkable. No obstruction. No mucosal thickening. Appendix: No evidence of appendicitis. Intraperitoneal space: Unremarkable. No free air. No significant fluid collection. Vasculature: Unremarkable. No abdominal aortic aneurysm. Lymph nodes: Unremarkable. No enlarged lymph nodes. Urinary bladder: Unremarkable as visualized. Reproductive: Unremarkable as visualized. Bones/joints: Unremarkable. No acute fracture. Soft tissues: Unremarkable. CT/CT abdomen pelvis w con* [id number] IMPRESSION: No acute abdominal or pelvic abnormality. COMMENTS: Consistent with the [employer]'s Incidental Findings Committee white paper (J Am Charles Radiol 2018): Any incidental renal lesion less than 1 cm or classified as too small to characterize, or any incidental cystic renal lesion characterized as simple-appearing, is likely benign. No follow-up imaging is recommended for these lesions per consensus recommendations based on imaging criteria. Radiation Dose CTDIVOL = (mGy): DLP = 862.66 (mGy-cm)
[2021-01-31 13:48] LABS: Add Urine Microscopic? NO; Charge for UA Resulting for Rev
[2021-01-31] MEDS: promethazine 25 mg/mL SDV 1 mL IM ×2 (14:00→19:25)
[2021-01-31 14:07] LABS: Urine Appearance Clear (CLEAR); Urine Color Yellow (Yellow)
[2021-01-31 14:08] LABS: Bilirubin Urine Neg (Negative); Blood Urine Neg (Negative); Glucose Urine UA Norm (Normal); Ketones Urine Negative (Negative); Leukocyte Esterase Urine Negative (Negative); Nitrate Urine Negative (Negative); Protein Urine Neg (Negative); Urobilinogen Urine Norm (Negative); pH Urine 7 (5-7)
[2021-01-31] MEDS: iohexol 300 mg/mL 100 mL Btl IV (14:36)
[2021-01-31] MEDS: capsaicin 0.025% cream 60 gm 1 APPLIC TOPICAL (17:16)
[2021-01-31] MEDS: lactated ringers 1,000 ML 150 ML IV (19:24)
[2021-01-31] MEDS: morphine 4 mg/mL SDV 1 mL IVP ×2 (19:25→21:32)
[2021-01-31 20:12] LABS: Amphetamines Screen Urine Negative (Negative); Barbiturates Screen Urine Negative (Negative); Benzodiazepines Screen Urine Positive (Negative); Cocaine Screen Urine Negative (Negative); Opiate Screen Urine Positive (Negative); PCP Screen Urine Negative (Negative); THC Screen Urine Positive (Negative)
--- NOTE | 2021-01-31 22:44 | P.HP_ITS ---
Providers/Chief Complaint Admitting Physician: Debbie Jama MD Primary Care Provider: Elieser Nelson MD Chief Complaint: N/V; SHAKING;CHILLED History of Present Illness Peter Brito III is a 36 year old male with past medical history including irritable bowel syndrome, chronic abdominal pain, opiate + marijuana use, hyperlipidemia, and COPD who presented to ER with c/o intractbale nausea and vomting. per patient symptoms started yesterday. Abdominal pain+, generalized, aching type, non radiating. Diarrhea + however reports this is more chronic. He has had several studies in the past to determine etiology of recurrent symptoms, including duodenal and colon biospsies one year ago which were normal. REcent MRCP 10/2020 did not show any gross abnormalities. Labs today notable for leukocytosis, likely from dehydration. CT abdomen without acute abnormlaities. Review of Systems General: Reports: 10 or more systems reviewed and unremarkable except in HPI and below Const: Denies: fever(s), chills or body aches Eyes: Denies: change in vision, blurry vision or photophobia ENMT: Reports: hoarseness; Denies: throat pain, enlarged tonsils, odynophagia or nasal congestion Card: Denies: chest pain, palpitations, irregular heart rhythm, edema, swelling of feet/ankles, lightheadedness, pre-syncope, dyspnea on exertion or orthopnea Resp: Denies: dyspnea, productive cough, non-productive cough, wheezing, stridor, pain on inspiration, change in phlegm color, hemoptysis or chest congestion GI: Denies: abdominal pain, nausea, vomiting, hematemesis, coffee ground emesis, dysphagia, heartburn, diarrhea, constipation, GI cramping, change in stool character, hematochezia or melena : Denies: flank pain, dysuria, urinary frequency, urinary urgency, urinary hesitancy or hematuria Musc: Denies: neck pain, back pain, extremity pain, joint swelling, joint warmth or deformity Neuro: Denies: headache(s), numbness in extremities, weakness in extremities, sensory changes, difficulty walking, frequent falls, dizziness, vertigo, behavioral changes, Slurred speech present or seizure-like activity Psych: Denies: anxiety, depression, suicidal ideation or homicidal ideation Endo: Denies: polyuria, polydipsia, tired all the time, cold intolerance or hot flashes Donaldo/Lymph: Denies: easy bruising or easy bleeding Medications/Allergies Home Medications Medication Instructions Recorded Confirmed Last Taken Type tizanidine 4 mg PO QID PRN 08/16/20 01/31/21 01/30/21 History meloxicam 15 mg tablet 15 mg PO DAILY #90 tab 08/21/20 01/31/21 10/16/20 Rx tamsulosin 0.4 mg capsule 0.4 mg PO BEDTIME cap 10/04/20 01/31/21 01/30/21 History multivitamin 1 tab PO DAILY 10/19/20 01/31/21 Unknown History fluticasone fur. 100 mcg-umeclid 1 inh INHALATION DAILY #60 ea 10/23/20 01/31/21 Unknown Rx 62.5 mcg-vilant 25 mcg inhalat.powder promethazine 25 mg tablet 25 mg PO TID PRN #30 tab 11/06/20 01/31/21 01/31/21 10:00 Rx trazodone 150 mg tablet 150 mg PO BEDTIME PRN #30 tab 12/06/20 01/31/21 Unknown Rx lovastatin 10 mg tablet 10 mg PO BEDTIME 30 Days #30 tab 12/25/20 01/31/21 01/30/21 Rx ondansetron 4 mg disintegrating 4 mg PO Q8H PRN #90 tab 01/01/21 01/31/21 01/31/21 10:00 Rx tablet fluoxetine [Prozac] 20 mg PO DAILY@12 01/31/21 01/31/21 01/30/21 History morphine 15 mg PO Q4H PRN 01/31/21 01/31/21 01/31/21 10:00 History pantoprazole [Protonix] 40 mg PO BID 01/31/21 01/31/21 01/30/21 History Allergies Allergy/AdvReac Type Severity Reaction Status Date / Time divalproex sodium Allergy hives Verified 01/31/21 13:32 [From Depakote] ketorolac [From Toradol] Allergy hives Verified 01/31/21 13:32 Penicillins Allergy hives Verified 01/31/21 13:32 bologna Allergy ALGY-Anaphy Uncoded 01/31/21 12:25 laxis hot dogs Allergy ALGY-Anaphy Uncoded 01/31/21 12:25 laxis PFSH Acute PFSH: Medical History Chronic post-traumatic stress disorder COPD, mild Depression Frequent headaches Gastritis Generalized anxiety disorder Lower urinary tract symptoms (LUTS) Major depressive disorder, recurrent, in full remission with anxious distress Medical marijuana use Neuropathy Nicotine dependence, other tobacco product, uncomplicated Vaping Peptic ulcer disease Polyuria Seizures Surgical History H/O oral surgery History of endoscopy Hx of umbilical hernia repair Status post laparoscopic cholecystectomy (02/21/20) Family History Mother History of shingles Grandfather Myocardial infarction CAD (coronary artery disease) Other Cancer Diabetes Denies family history of Anesthesia complication Bleeding disorder Social History Smoking and tobacco status: former smoker Alcohol intake: never Household members: spouse Marital status: Current occupational status: employed History of recent travel: No Vitals/I&O/Wt Last Vital Signs Temp 99.5 F 01/31/21 22:00 Pulse 80 01/31/21 22:00 Resp 17 01/31/21 22:00 BP 128/75 01/31/21 22:00 Pulse Ox 96 01/31/21 22:00 01/31/21 01/31/21 01/31/21 06:59 14:59 22:59 Intake Total 1999 Balance 1999 Weight last 48 hrs Weight 65.034 kg Weight 63.503 kg Physical Exam Narrative: EXAM NARRATIVE: General: No acute distress, AO x3 HEENT: PERRLA, pupils bilaterally equal and reactive, pallors not present Chest: Normal vesicular breath sounds, no added sounds, equal good air entry bilaterally CVS: S1-S2 regular, no murmurs, no tachycardia, no gallops, no rubs Abdomen: Soft, nontender, no organomegaly, bowel sounds present Neuro: No focal deficits, no facial deformity, AO x3, power 5/5 in all limbs Data : 01/31/21 12:45 01/31/21 12:45 Other Labs: Laboratory Results WBC 26.4 10^3/uL (4.0-10.0) H 01/31/21 12:45 RBC 5.13 10^6/uL (4.1-5.3) 01/31/21 12:45 Hgb 15.9 g/dL (11.7-16.6) 01/31/21 12:45 Hct 46.2 % (42.0-52.0) 01/31/21 12:45 MCV 90.1 fl (80-94) 01/31/21 12:45 MCH 31.0 pg (28.0-34.0) 01/31/21 12:45 MCHC 34.4 g/dL (30.0-36.0) 01/31/21 12:45 RDW 11.9 % (12.1-15.1) L 01/31/21 12:45 Plt Count 267 10^3/cmm (130-400) 01/31/21 12:45 MPV 10.7 fL (7.4-10.4) H 01/31/21 12:45 Neut % (Auto) 61.9 % 01/31/21 12:45 Lymph % (Auto) 31.3 % 01/31/21 12:45 [place] % (Auto) 5.0 % 01/31/21 12:45 Eos % (Auto) 0.2 % 01/31/21 12:45 Baso % (Auto) 0.4 % 01/31/21 12:45 Neut # (Auto) 16.35 10^3/uL (1.8-7.7) H 01/31/21 12:45 Lymph # (Auto) 8.2 10^3/uL (0.8-4.8) H 01/31/21 12:45 [place] # (Auto) 1.3 10^3/uL (0.2-0.9) H 01/31/21 12:45 Eos # (Auto) 0.0 10^3/uL (0.0-0.8) 01/31/21 12:45 Baso # (Auto) 0.1 10^3/uL (0.0-0.1) 01/31/21 12:45 Nucleated RBC % (auto) 0 % 01/31/21 12:45 Nucleated RBCs # 0.0 /100WBC 01/31/21 12:45 Sodium 142 mmol/L (136-145) 01/31/21 12:45 Potassium 3.4 mmol/L (3.5-5.1) L 01/31/21 12:45 Chloride 105 mmol/L (98-107) 01/31/21 12:45 Carbon Dioxide 23 mmol/L (22-29) 01/31/21 12:45 Anion Gap 17.4 (5-19) 01/31/21 12:45 BUN 8 mg/dL (6-20) 01/31/21 12:45 Creatinine 0.6 mg/dL (0.7-1.2) L 01/31/21 12:45 GFR Calculation 151.6 mL/min (90-130) H 01/31/21 12:45 Glucose 126 mg/dL (65-115) H 01/31/21 12:45 Calculated Osmolality 294 mOsm/kg (285-295) 01/31/21 12:45 Calcium 9.7 mg/dL (8.5-10.5) 01/31/21 12:45 Total Bilirubin 0.4 mg/dL (0.15-1.2) 01/31/21 12:45 AST 30 U/L (0-40) 01/31/21 12:45 ALT 37 U/L (0-41) 01/31/21 12:45 Alkaline Phosphatase 80 IU/L (40-130) 01/31/21 12:45 Total Protein 7.6 g/dL (6.6-8.7) 01/31/21 12:45 Albumin 5.0 g/dL (3.5-5.2) 01/31/21 12:45 Globulin 2.6 g/dL (1.3-4.6) 01/31/21 12:45 Lipase 24 U/L (13-60) 01/31/21 12:45 Urine Color Yellow (Yellow) 01/31/21 12:45 Urine Appearance Clear (CLEAR) 01/31/21 12:45 Urine pH 7 (5-7) 01/31/21 12:45 Ur Specific [place] 1.010 (1.005-1.030) 01/31/21 12:45 Urine Protein Neg (Negative) 01/31/21 12:45 Urine Glucose (UA) Norm (Normal) 01/31/21 12:45 Urine Ketones Negative (Negative) 01/31/21 12:45 Urine Blood Neg (Negative) 01/31/21 12:45 Urine Nitrate Negative (Negative) 01/31/21 12:45 Urine Bilirubin Neg (Negative) 01/31/21 12:45 Urine Urobilinogen Norm mg/dL (Negative) 01/31/21 12:45 Ur Leukocyte Esterase Negative (Negative) 01/31/21 12:45 Urine Opiates Screen Positive ng/mL (Negative) H 01/31/21 12:45 Ur Barbiturates Screen Negative ng/mL (Negative) 01/31/21 12:45 Ur Phencyclidine Scrn Negative ng/mL (Negative) 01/31/21 12:45 Ur Amphetamines Screen Negative ng/mL (Negative) 01/31/21 12:45 U Benzodiazepines Scrn Positive ng/mL (Negative) H 01/31/21 12:45 Urine Cocaine Screen Negative ng/mL (Negative) 01/31/21 12:45 U Marijuana (THC) Screen Positive ng/mL (Negative) H 01/31/21 12:45 Impressions Abdomen/Pelvis CT 01/31/21 13:47 IMPRESSION: No acute abdominal or pelvic abnormality. COMMENTS: Consistent with the [employer]'s Incidental Findings Committee white paper (J Am Charles Radiol 2018): Any incidental renal lesion less than 1 cm or classified as too small to characterize, or any incidental cystic renal lesion characterized as simple-appearing, is likely benign. No follow-up imaging is recommended for these lesions per consensus recommendations based on imaging criteria. Radiation Dose CTDIVOL = (mGy): DLP = 862.66 (mGy-cm) Chest X-Ray 01/31/21 13:47 Impression: Negative chest. Micro: Microbiology 01/31/21 16:19 Blood Culture - Preliminary Blood SPECIMEN COLLECTED 01/31/21 16:16 Blood Culture - Preliminary Blood SPECIMEN COLLECTED A&P Assessment and plan (1) Nausea & vomiting: Status: Acute Qualifiers: Vomiting type: unspecified Vomiting Intractability: intractable Qualified Code(s): R11.2 - Nausea with vomiting, unspecified (2) Leukocytosis: Status: Acute Qualifiers: Leukocytosis type: unspecified Qualified Code(s): D72.829 - Elevated white blood cell count, unspecified (3) Hypokalemia: Status: Acute Additional A&P Information 36 M presented today with intractable severe nausea vomiting, unable to tolerate p.o. intake in spite of supportive treatment in ER. He is dehydrated on exam. Admit to med/surg for supportive management IVF NS @ 100cc/hr prn zofran and reglan for nausea and vomiting pepcid 20mg IVP q12h clear liquid diet, advance as tolerated CT abdomen and pelvis without acute abnormalities Leukocytosis likely 2/2 dehydration vomiting may be related to possibly narcotic withdrawal or THC use Attestations Medical Necessity Statement*: observation admission, anticipate less than 2 midnight stay Coding Level of Care Code Acute Assistant Program Manager for [facility] Fwd Diagnoses Nausea & vomiting R11.2 Vomiting type: unspecified Vomiting Intractability: intractable Leukocytosis D72.829 Leukocytosis type: unspecified Hypokalemia E87.6
[2021-01-31] MEDS: morphine 4 mg/mL SDV 1 mL 2 MG IVP (22:54)
[2021-01-31] MEDS: trazodone 150 mg Tablet PO (22:54)
[2021-01-31] MEDS: famotidine 20 mg/2 mL INJ IVP (22:55)
[2021-02-01] VITALS (8 sets, daily range): BP systolic 102–135; BP diastolic 53–87; PULSE 72–76; RESP 16–17; TEMP 36.8–37.7; O2SAT 95–98
[2021-02-01] MEDS: promethazine 25 mg Tablet PO (03:36)
[2021-02-01] MEDS: morphine 4 mg/mL SDV 1 mL 2 MG IVP ×2 (03:36→08:20)
[2021-02-01 05:48] LABS: Basophils # 0.1 10^3/uL (0.0-0.1); Basophils % 0.3 %; Hematocrit 42.3 % (42.0-52.0); Hemoglobin 14.6 g/dL (11.7-16.6); Lymphocytes # 6.4 10^3/uL (0.8-4.8); Lymphocytes % 30.2 %; Mean Corpuscular HGB Conc 34.5 g/dL (30.0-36.0); Mean Corpuscular Hemoglobin 31.5 pg (28.0-34.0); Mean Corpuscular Volume 91.2 fl (80-94); Mean Platelet Volume 10.5 fL (7.4-10.4); Monocytes # 1.3 10^3/uL (0.2-0.9); Neutrophils # 13.09 10^3/uL (1.8-7.7); Neutrophils % 61.9 %; Nucleated Red Blood Cells % 0 %; Platelet Count 230 10^3/cmm (130-400); Red Blood Count 4.64 10^6/uL (4.1-5.3); Red Cell Distribution Width 12.5 % (12.1-15.1); White Blood Count 21.1 10^3/uL (4.0-10.0)
[2021-02-01 06:11] LABS: Slide Review Slide Review Perform
[2021-02-01 06:30] LABS: Alanine Aminotransferase 31 U/L (0-41); Albumin Level 4.2 g/dL (3.5-5.2); Alkaline Phosphatase 68 IU/L (40-130); Anion Gap 14.6 (5-19); Aspartate Amino Transferase 42 U/L (0-40); Blood Urea Nitrogen 5 mg/dL (6-20); Calcium 9.1 mg/dL (8.5-10.5); Carbon Dioxide 24 mmol/L (22-29); Chloride 105 mmol/L (98-107); Globulin 2.3 g/dL (1.3-4.6); Glomerular Filtration Rate 151.6 mL/min (90-130); Glucose 113 mg/dL (65-115); Osmolality Calculated 288 mOsm/kg (285-295); Potassium 3.6 mmol/L (3.5-5.1); Sodium 140 mmol/L (136-145); Total Bilirubin 0.3 mg/dL (0.15-1.2); Total Protein 6.5 g/dL (6.6-8.7)
[2021-02-01] MEDS: famotidine 20 mg/2 mL INJ IVP (10:00)
[2021-02-01] MEDS: fluoxetine 20 mg Capsule PO (11:17)
[2021-02-01] MEDS: ondansetron 2 mg/ML SDV 2 mL 4 MG IVP ×2 (11:17→18:52)
[2021-02-01] MEDS: sodium chlor 0.45% +KCl 20 mEq 20 MEQ/1,000 ML BAG 50 MEQ IV (11:17)
[2021-02-01 12:32] LABS: SARS Covid-2 Antigen Negative (Negative)
[2021-02-01] MEDS: morphine 4 mg/mL SDV 1 mL 1 MG IVP ×2 (13:36→18:52)
[2021-02-01 13:37] LABS: Procalcitonin 0.04 ng/mL (0-0.5)
[2021-02-01 13:57] LABS: HIV 1 & 2 Antibody Non-Reactive (Non-Reactiv); HIV 1 & 2 Antigen Non-Reactive (Non-Reactiv)
[2021-02-01 14:10] LABS: Hepatitis A Antibody IgM Non-Reactive (Nonreactive); Hepatitis B Core AB, Total Non-Reactive (Nonreactive); Hepatitis B Surface AB 3.5 (11.5-1000); Hepatitis B Surface Antigen Non-Reactive (Nonreactive); Hepatitis C Virus Antibody Non-Reactive (Nonreactive)
--- NOTE | 2021-02-01 14:20 | PC.CHAP ---
Pastoral Care Encounter/Spiritual Assessment Type of Contact [] Declined draw bench operator visit [] Patient/Family/Request visit [] Outpatient visit [] Follow-up visit [] Physician referral [] Code/Alert [x] Routine visit [] Staff referral [] Actively dying [] Patient sleeping [] Family support [] [] Out of room [] Palliative care [] [x] Receiving care in room [] Pre-surgical visit [] Trauma [] Long length of stay [] ICU visit [] Other: Relational/Emotional Strength [x] Patient feels connected with others/family/visitors/staff [] Distress [] Loneliness/isolation [] Abandonment Spirituality of Patient [x] Person of Aneta [] Attends Catholic of their Aneta [x] Believes in Prayer [] Reads Bible or Catholic materials [] There are Spiritual issues to be addressed Babbitter Interventions [x] Prayer [x] Active listening [x] Non-anxious presence [x] Spiritual/emotional support [] Crisis/trauma care [x] Spiritual counseling [] Bereavement support [] Provided bereavement packet [] Provided Bible/devotional materials [] Provided toy/stuffed animal, coloring book to patient or family member [] Provided Communion [] Anointing/[place] [] Salvation [x] Completed spiritual assessment [] Other: Impact on Illness or Injury [] Angry [] Fearful [x] Anxious [] Often cries [] Exhaustion [x] Unable to work [] Unable to attend mandaen [] Unable to walk/stand [] Unable to read [] Unable to drive [] Unable to eat/drink [] Unable to sleep [] Unable to be with family [] Patient intubated [] Other: Summary he` was negative in his response wants to go home Time spent with patient 10 mins
--- NOTE | 2021-02-01 14:57 | PM.PN ---
Subjective Subjective: Interval history: Admitted last night. H&P and labs appreciated. Examination patient sitting comfortably in bed. States that for the first time he has had something to eat. On clear liquid diet currently. Denies any nausea or vomiting currently. States he is too soon to see if he had any vomiting. Complaining of abdominal pain. Denies any dizziness. Vitals/I&O/Wt Last Vital Signs Temp 99.1 F 02/01/21 12:00 Pulse 76 02/01/21 12:00 Resp 17 02/01/21 13:36 BP 120/79 02/01/21 12:00 Pulse Ox 96 02/01/21 13:36 01/31/21 02/01/21 02/01/21 22:59 06:59 14:59 Intake Total 1999 / 1999 1000 / 3000 Output Total 300 / 300 Balance 1999 700 / 2700 Weight last 48 hrs Weight 65.034 kg Weight 63.503 kg Physical Exam Narrative: EXAM NARRATIVE: General: No acute distress, AO x3 HEENT: PERRLA, pupils bilaterally equal and reactive, pallors not present Chest: Normal vesicular breath sounds, no added sounds, equal good air entry bilaterally CVS: S1-S2 regular, no murmurs, no tachycardia, no gallops, no rubs Abdomen: Soft, nontender, no organomegaly, bowel sounds present Neuro: No focal deficits, no facial deformity, AO x3, power 5/5 in all limbs Data : 02/01/21 05:12 02/01/21 05:12 Micro: Microbiology 01/31/21 16:19 Blood Culture - Preliminary Blood SPECIMEN COLLECTED 01/31/21 16:16 Blood Culture - Preliminary Blood SPECIMEN COLLECTED A&P Assessment and plan (1) Nausea & vomiting: Status: Acute Qualifiers: Vomiting Intractability: intractable Vomiting type: unspecified Qualified Code(s): R11.2 - Nausea with vomiting, unspecified (2) Leukocytosis: Status: Acute Qualifiers: Leukocytosis type: unspecified Qualified Code(s): D72.829 - Elevated white blood cell count, unspecified (3) Hypokalemia: Status: Acute Additional A&P Information Intractable nausea/vomiting: Continue with half NS with 20 mEq potassium at 50 cc an hour. Clear liquid diet. Will advance gradually. Zofran and Reglan as needed. Famotidine IV [address] abdomen pelvis negative for any bowel obstruction, acute pathology. Patient did have possible colitis on previous admission and he was discharged on Cipro Flagyl. Has had endoscopy in 2019 for same reason along with colonoscopy which was negative for any microscopic colitis, gastritis. Also had cholecystectomy in February 2020. Could be secondary to cyclic vomiting syndrome versus chronic marijuana abuse. Fever: Patient does have leukocytosis and one episode of fever last night. Less likely secondary to any infection. Could be secondary to inflammation. For now send stool studies, check hepatitis panel, HIV, COVID-19 antigen and PCR. Isolation precautions. CT abdomen pelvis and chest x-ray done last night negative for any signs of infection. Start patient on oral ciprofloxacin and IV Flagyl for now. Clear liquid diet. Full code. Famotidine for PUD prophylaxis. Lovenox for DVT prophylaxis Attestations Medical Necessity Statement*: Further hospitalization for management of intractable nausea vomiting as patient is unable to maintain oral hydration, leukocytosis fever viral infectious source and COVID-19 is ruled out Time Spent in Patient Care: Greater than 35 minutes (>than 50% of time spent in counselling and/or direct pt care on unit). Coding Level of Care Code Acute Manager Radio for [facility] Fwd Diagnoses Nausea & vomiting R11.2 Vomiting Intractability: intractable Vomiting type: unspecified Leukocytosis D72.829 Leukocytosis type: unspecified Hypokalemia E87.6
[2021-02-01] MEDS: metroNIDAZOLE 500 MG Tablet PO (15:01)
[2021-02-01] MEDS: metoclopramide 5 mg/mL SDV 2 mL IVP (15:48)
[2021-02-02 14:50] LABS: Coronavirus Test Green County Not Detected
--- NOTE | 2021-02-06 13:33 | PC.SOCIAL ---
multiple phone calls made for discharge follow up call, no answer, message left.
== END 2021-02-01 20:00 | disposition left against medical advice (07) ==
LOC: ER 18:16 → MEDSURG 20:41
PROVIDERS: Physician Assistant; Admitting Provider Student in an Organized Health Care Education/Training Program; Emergency Provider Emergency Medicine; PCP Internal Medicine; Visit Provider Student in an Organized Health Care Education/Training Program
DX: R11.2 Nausea with vomiting, unspecified (principal); D72.829 Elevated white blood cell count, unspecified; E87.6 Hypokalemia; E78.5 Hyperlipidemia, unspecified; J44.9 Chronic obstructive pulmonary disease, unspecified; F32.9 Major depressive disorder, single episode, unspecified; Z87.11 Personal history of peptic ulcer disease; Z87.891 Personal history of nicotine dependence; Z53.29 Procedure and treatment not carried out because of patient's decision for other reasons
CPT/HCPCS: 36415; 71045; 74177; 80053; 80306; 81003; 83690; 84145; 85025; 86705; 86706; 86709; 86803; 87040; 87340; 87426; 87635; 87806; 93005; 96361; 96372; 96374; 96375; 96376; 99285; G0378; J2270; J2405; J2550; J2765; J3490; Q0169; Q9967

== ENCOUNTER 2021-05-24 12:24 | Emergency (ER) | payer SELFPAY ==
[2021-05-24 13:05] VITALS: BP 132/84; PULSE 100; RESP 16; TEMP 36.8; O2SAT 97; BMI 21.7
--- NOTE | 2021-05-24 13:14 | W.ED.COVID ---
HPI - COVID General: Chief Complaint: Upper Respiratory Infection Stated Complaint: SOB, MUSCLE ACHES, LOW TEMP Time Seen by Provider: 05/24/21 13:09 Triage information: No fever, cough or shortness of breath. No known COVID + exposure last 14 days History of Present Illness: HPI Narrative: Muscle aches and pain with expiration last couple days. and son recently diagnosed with COVID. MD complaint: reported COVID exposure and has COVID symptoms Prior covid testing: yes, results known Prior testing date: 05/23/21 COVID 19 common symptoms: positive fatigue, body aches and chest tightness; negative non-productive cough, productive cough, dyspnea, headache(s), throat pain, nasal congestion, nausea or vomiting COVID 19 other sytmptoms: positive pleuritic pain; negative chest pain Severity: mild Treatment prior to arrival: none COVID Results: SARS-CoV-2 Antigen (Rapid) Negative (Negative) 02/01/21 11:29 02/01/21 SARS-CoV-2 RNA (RT-PCR) Not detected (NOT DETECTED) 02/17/20 14:40 02/17/20 Nasal/Oral Coronavirus 2019 PCR Not detected 02/01/21 11:29 02/01/21 Review of Systems Const: Reports: body aches and fatigue Eyes: Denies: change in vision or blurry vision ENMT: Denies: throat pain or nasal congestion Card: Reports: other (Pleuritic pain); Denies: chest pain or dyspnea on exertion Resp: Denies: dyspnea, productive cough or non-productive cough GI: Denies: abdominal pain, nausea or vomiting : Denies: difficulty urinating Musc: Denies: extremity pain Skin/Breast: Denies: rash Neuro: Denies: headache(s) Psych: Denies: anxiety or depression Donaldo/Lymph: Denies: easy bruising PFSH ED PFSH: Medical History (Updated 05/24/21 @ 13:14 by CARLOS Parra) Chronic post-traumatic stress disorder COPD, mild Depression Frequent headaches Gastritis Generalized anxiety disorder Lower urinary tract symptoms (LUTS) Major depressive disorder, recurrent, in full remission with anxious distress Medical marijuana use Patient reports prescribed for his back and appetite Neuropathy Nicotine dependence, other tobacco product, uncomplicated Vaping Peptic ulcer disease Polyuria Psychiatric care Seizures Surgical History H/O oral surgery History of endoscopy Hx of umbilical hernia repair Status post laparoscopic cholecystectomy (02/21/20) Family History Mother History of shingles Grandfather Myocardial infarction CAD (coronary artery disease) Other Cancer Diabetes Denies family history of Anesthesia complication Bleeding disorder Social History Smoking and tobacco status: former smoker Alcohol intake: never Household members: spouse Marital status: Current occupational status: employed History of recent travel: No Physical Exam Const: COMMON NORMALS: no acute distress, average body habitus and patient oriented x3 HENMT: COMMON NORMALS: normocephalic HEAD & SCALP: normal to inspection and normocephalic FACE & SINUS: normal facial exam Eye: COMMON NORMALS: conjunctivae normal GENERAL EYE: appearance normal, both eyes and all related structures CONJUNCTIVA: Yes conjunctivae normal Neck/C-Spine: COMMON NORMALS: no JVD Chest: COMMONS NORMALS: normal inspection of the chest Resp: COMMON NORMALS: normal respiratory effort and clear to auscultation bilaterally AUSCULTATION: clear to auscultation bilaterally Cardio: COMMON NORMALS: no JVD, regular rate and regular rhythm RATE: regular rate RHYTHM: regular rhythm GI: COMMON NORMALS: Normal to inspection, nondistended, normoactive bowel sounds present Extremity: COMMON NORMALS: normal to inspection and full ROM Neuro: COMMON NORMALS: patient oriented x3 Course Vital Signs: Vital signs: Vital Signs Temperature 98.2 F 05/24/21 13:57 Pulse Rate 99 05/24/21 14:21 Respiratory Rate 22 H 05/24/21 14:21 Blood Pressure 130/81 05/24/21 13:57 Pulse Oximetry 99 05/24/21 14:21 MDM - COVID MDM Narrative: Medical decision making narrative: Patient presents in no acute distress. Says it hurts when he breathes out. States he thinks he has COVID symptoms he tested negative last night at [facility]. His and son are positive for COVID. Patient denies fever does have muscle aches though does have a history of mild COPD does not have any other presenting symptoms. Patient provided steroid and inhaler prescription COVID Results: SARS-CoV-2 Antigen (Rapid) Negative (Negative) 02/01/21 11:29 02/01/21 SARS-CoV-2 RNA (RT-PCR) Not detected (NOT DETECTED) 02/17/20 14:40 02/17/20 Nasal/Oral Coronavirus 2019 PCR Not detected 02/01/21 11:29 02/01/21 Discharge Plan Discharge Patient Disposition: Home Clinical Impression: Acute viral syndrome Condition: Stable Prescriptions: New Decadron 6 mg tablet 6 mg PO DAILY Qty: 7 RF: 0 ProAir HFA 90 mcg/actuation HFA aerosol inhaler 2 inh inhalation Q4H PRN (Reason: shortness of breath or wheezing) Qty: 6.7 RF: 0 No Action tamsulosin [Flomax] 0.4 mg capsule 0.4 mg PO BEDTIME RF: 0 ondansetron 4 mg tablet,disintegrating 4 mg PO Q8H PRN (Reason: nausea and vomiting) Qty: 90 RF: 1 cannabidiol 100 mg/mL solution PO RF: 0 promethazine 25 mg tablet 25 mg PO TID PRN (Reason: nausea and vomiting) Qty: 30 RF: 3 Protonix 40 mg tablet,delayed release (DR/EC) 40 mg PO BID 90 Days Qty: 180 RF: 1 lovastatin 10 mg tablet See Rx Instructions .ROUTE .COMPLEX Qty: 30 RF: 0 meloxicam 15 mg tablet 15 mg PO DAILY Qty: 90 RF: 3 tizanidine 4 mg Tablet 4 mg PO QID PRN (Reason: Spasms) RF: 0 multivitamin Tablet 1 tab PO DAILY RF: 0 Trelegy Ellipta 100-62.5-25 mcg blister with device 1 inh INHALATION DAILY Qty: 60 RF: 8 morphine 15 mg tablet 15 mg PO Q4H PRN (Reason: Pain) RF: 0 Discharge Orders: Discharge ED (Routine); Ordered 05/24/21 Ordered By: Neri Hylton Referrals: Syeda Yang DO [Primary Care Provider] - Discharge Diet: Usual diet Discharge Activity: Increase activity as tolerated Patient Instructions: Viral Syndrome (ED) Activity Restrictions/Additional Instructions: Follow-up with medical provider as directed. Take medications as prescribed. Return to the ER or your medical provider if condition worsens. Please read and understand discharge instructions. If any questions ask please. Coding Level of Care Code ED Sweatband Decorating Machine Operator for [facility] Fwd Exam Comprehensive
[2021-05-24 13:57] VITALS: BP 130/81; PULSE 98; RESP 16; TEMP 36.8; O2SAT 99
[2021-05-24 14:21] VITALS: PULSE 99; RESP 22; O2SAT 99
== END 2021-05-24 14:22 | disposition home or self-care (01) ==
PROVIDERS: Emergency Provider Nurse Practitioner Family; PCP Family Medicine
DX: B34.9 Viral infection, unspecified (principal); J44.9 Chronic obstructive pulmonary disease, unspecified; Z87.891 Personal history of nicotine dependence
CPT/HCPCS: 99282

== ENCOUNTER 2021-06-27 16:14 | Outpatient (CLI) | payer SELFPAY ==
--- NOTE | 2021-06-27 16:18 | XRR_ITS ---
PROCEDURE INFORMATION: Exam: XR Abdomen Exam date and time: 06/27/2021 4:18 PM Age: 36 years old Clinical indication: Abdominal pain; Flank; Left lower quadrant (llq); Prior surgery; Surgery date: 6+ months; Surgery type: Gallbladder & hernia repair; Patient HX: HX of kidney stones in lt kidney; Additional info: Flank pain TECHNIQUE: Imaging protocol: XR of the abdomen. Views: Frontal supine view of the abdomen. 1 View. COMPARISON: CT abdomen pelvis w con* [id number] 01/31/2021 2:29 PM FINDINGS: Gastrointestinal tract: Normal. No bowel dilation. Organs: Cholecystectomy clips. Right lower quadrant clip. Bones/joints: Unremarkable. XR/XR KUB [id number] IMPRESSION: Nonspecific nonobstructive bowel gas pattern.
== END 2021-06-27 16:15 | disposition home or self-care (01) ==
PROVIDERS: PCP Internal Medicine; Visit Provider Internal Medicine
DX: R10.32 Left lower quadrant pain (principal)
CPT/HCPCS: 74018; 81000

== ENCOUNTER → 2021-08-02 09:02 | Outpatient (BNVA) | payer SELFPAY | PROVIDERS: PCP Internal Medicine; Visit Provider Urology | DX: R39.9 Unspecified symptoms and signs involving the genitourinary system (principal) | CPT/HCPCS: 81003 ==

== ENCOUNTER 2021-11-13 11:11 | Outpatient (CLI) | payer SELFPAY ==
--- NOTE | 2021-11-13 11:00 | MR_ITS ---
WS: [id number] MRI LUMBAR SPINE NONCONTRAST HISTORY: Low back pain. No injury. COMPARISON: 11/28/2016 TECHNIQUE: Sagittal and axial multisequence imaging is submitted. Very slight straightening of the normal lumbar lordosis. No acute fracture or marrow edema. Mild disc space narrowing and desiccation at L5-S1. Conus terminates normally at L1-2 disc level. L1-L2: Normal. L2-L3: Normal. L3-L4: Mild annular disc bulging. Mild narrowing of the central canal and mild ligamentum flavum hype rtrophy. Mild bilateral foraminal stenosis. Component of short pedicles resulting in congenital steno sis is likely. L4-L5: Mild annular disc bulge with ligamentum flavum and facet arthritis. Encroachment into the cent ral thecal sac and subarticular recesses. Mild to moderate bilateral foraminal stenosis. Mild progres jennifer of stenosis since the prior exam. L5-S1: Mild annular disc bulging. Annular fissures are noted within the disc. There is a central disc protrusion and additional slightly larger LEFT paracentral disc protrusion which does contact the ex iting LEFT S1 nerve root. Disc extends into the LEFT foramen with complete effacement of fat. Larger disc protrusion in the LEFT foramen. LEFT foraminal disc protrusion has increased in size since the p rior study. Mild to moderate stenosis RIGHT foramen. Cyst lower LEFT renal pelvis. MR/MR lumbar spine wo con* [id number] IMPRESSION: 1. Advanced degenerative disc disease at L5-S1 with central, LEFT paracentral and foraminal disc protrusions. Large LEFT foraminal disc protrusion with compl ete effacement of fat has progressed since 11/28/2016. There is encroachment upo n both the LEFT L5 and S1 nerve root. Mild to moderate RIGHT foraminal stenosis . 2. Multiple moderate bilateral foraminal stenosis at L3-4 and L4-5. Mild narro wing of the central canal. Consider congenital stenosis due to short pedicles.
--- NOTE | 2021-11-13 11:45 | MR_ITS ---
WS: [id number] MRI THORACIC SPINE noncontrast HISTORY: Continued mid back pain. Increasing. No injury. COMPARISON: None available. TECHNIQUE: Multiplanar sequences are performed in sagittal and axial planes. Mild increase in the upper thoracic kyphosis. Mild anterior wedging of T4, T5, T6 and T7. No marrow e elliott. No retropulsion of these vertebral bodies. Signal within the cord is normal. T1-2: Normal. T2-3: Normal. T3-4: Mild facet arthritis. Mild RIGHT foraminal narrowing. T4-5: Normal. T5-6: Mild facet joint arthritis. T6-7: Mild bilateral facet joint arthritis. T7-8: Mild facet joint arthritis and mild foraminal stenosis. T8-9: Mild bilateral foraminal stenosis and facet arthritis. T9-10: Mild facet arthritis and foraminal stenosis. T10-11: Mild bilateral facet joint arthritis and foraminal stenosis. T11-12: Normal. MR/MR thoracic spin wo con* [id number] IMPRESSION: 1. Remote mild anterior compression fractures at T4, T5, T6 and T7. No acute f racture. 2. Mild facet joint arthritis and foraminal stenosis as described above. No hi gh-grade central stenosis. 3. Increase in the upper thoracic kyphosis due to the remote mild anterior com pression fractures.
== END 2021-11-13 11:12 | disposition home or self-care (01) ==
PROVIDERS: PCP Internal Medicine; Visit Provider Internal Medicine
DX: G89.29 Other chronic pain (principal); M54.41 Lumbago with sciatica, right side; M54.42 Lumbago with sciatica, left side; M47.814 Spondylosis without myelopathy or radiculopathy, thoracic region; M48.04 Spinal stenosis, thoracic region
CPT/HCPCS: 72146; 72148

== ENCOUNTER → 2021-11-27 13:37 | Outpatient (BNVA) | payer SELFPAY | PROVIDERS: PCP Internal Medicine; Referring Provider Internal Medicine; Visit Provider Orthopaedic Surgery | DX: M51.37 Other intervertebral disc degeneration, lumbosacral region (principal) | CPT/HCPCS: 72070; 72110 ==

== ENCOUNTER → 2022-01-22 14:52 | Outpatient (BNVA) | payer SELFPAY | PROVIDERS: PCP Internal Medicine; Visit Provider Family Medicine | DX: M51.37 Other intervertebral disc degeneration, lumbosacral region (principal); K40.90 Unilateral inguinal hernia, without obstruction or gangrene, not specified as recurrent; M19.90 Unspecified osteoarthritis, unspecified site | CPT/HCPCS: 80053; 84550; 85025; 86140; 86160; 86162; 86235; 86255; 86376 ==

== ENCOUNTER 2022-02-02 16:24 | Emergency (ER) | payer SELFPAY ==
[2022-02-02 16:25] VITALS: BP 150/76; PULSE 77; RESP 16; TEMP 36.7; O2SAT 98; BMI 19.3
--- NOTE | 2022-02-02 16:50 | W.ED.BACK ---
HPI - Back Pain/Injury General: Chief Complaint: Back Pain/Injury Stated Complaint: Right leg pins and needles Time Seen by Provider: 02/02/22 16:40 History of Present Illness: Patient is a 37-year-old male comes to the ED with acute on chronic back pain. Patient is currently being referred to pain management but has not gotten appointment set up with them yet. He also has been seen by Dr. Romero for his back problems. Patient has history of degenerative disc disease at L5-S1. About 4 or 5 days ago patient started developing worsening pain and back and pain that radiates down into the right leg as well. He rates his pain currently 9 out of 10. Symptoms worsen if he is sitting for too long. He had a prescription for hydrocodone's for pain that he filled approximately a month ago and he is currently out of them. He is trying to call his PCP to get set up with appointment with him to get a refill on his pain meds. Denies any bladder or bowel incontinence, weakness to lower extremities or any pelvic anesthesia. Associated symptoms: Deny abdominal pain, chills, dysuria, fatigue, fever(s), hematuria, nausea or vomiting Review of Systems Const: Denies: fever(s), chills or fatigue Eyes: Denies: change in vision or eye discomfort ENMT: Denies: throat pain, odynophagia, nasal discharge or nasal congestion Card: Denies: chest pain, palpitations, edema, swelling of feet/ankles, dyspnea on exertion or orthopnea Resp: Denies: dyspnea, productive cough or non-productive cough GI: Denies: abdominal pain, nausea, vomiting, diarrhea, constipation or hematochezia : Denies: flank pain, difficulty urinating, dysuria or hematuria Musc: Reports: back pain; Denies: neck pain or extremity swelling Skin/Breast: Denies: rash or new lesions Neuro: Denies: headache(s), numbness in extremities or weakness in extremities PFSH ED PFSH: Medical History Chronic post-traumatic stress disorder COPD, mild Depression Frequent headaches Gastritis Generalized anxiety disorder Lower urinary tract symptoms (LUTS) Major depressive disorder, recurrent, in full remission with anxious distress Medical marijuana use Patient reports prescribed for his back and appetite Neuropathy Nicotine dependence, other tobacco product, uncomplicated Vaping Peptic ulcer disease Polyuria Psychiatric care Seizures Surgical History H/O oral surgery History of endoscopy Hx of umbilical hernia repair Status post laparoscopic cholecystectomy (02/21/20) Family History Mother History of shingles Grandfather Myocardial infarction CAD (coronary artery disease) Other Cancer Diabetes Denies family history of Anesthesia complication Bleeding disorder Social History Smoking and tobacco status: former smoker Alcohol intake: never Household members: spouse Marital status: Current occupational status: employed History of recent travel: No Physical Exam Const: COMMON NORMALS: patient oriented x3 and alert GENERAL APPEARANCE: cooperative HENMT: COMMON NORMALS: normocephalic HEAD & SCALP: normocephalic MOUTH: Normal oral and palatal mucosa present THROAT: posterior oropharynx normal and uvula midline Neck/C-Spine: COMMON NORMALS: supple GENERAL: Yes normal visual inspection Resp: COMMON NORMALS: normal respiratory effort, No retractions, No use of accessory muscles and clear to auscultation bilaterally AUSCULTATION: clear to auscultation bilaterally Cardio: COMMON NORMALS: regular rate, regular rhythm, S1 normal heart sound present, S2 normal heart sound present, No gallops present (Cardio), No clicks present (Cardio), No murmurs present (Cardio) and Peripheral pulses 2+ throughout RATE: regular rate RHYTHM: regular rhythm HEART SOUNDS: S1 normal heart sound present and S2 normal heart sound present PERIPHERAL PULSES: Peripheral pulses 2+ throughout GI: COMMON NORMALS: Normal to inspection, nondistended, normoactive bowel sounds present, Soft to palpation, non-tender and no masses PALPATION: Yes Soft to palpation : COMMON NORMALS: Yes no CVA tenderness BLADDER/KIDNEY EXAM: Yes no CVA tenderness Back/Pelvis: COMMON NORMALS: no CVA tenderness LUMBAR SPINE/LOWER BACK: Yes pain with ROM and Yes paraspinal muscle tenderness Lumbar paraspinal muscle tenderness: bilateral Bilateral lumbar paraspinal muscle tenderness: L4 and L5 Extremity: COMMON NORMALS: normal to inspection Neuro: COMMON NORMALS: patient oriented x3 SENSORIUM/ORIENTATION: Yes alert GAIT: Yes Normal gait present Skin: GENERAL SKIN EXAM: dry skin Course Vital Signs: Vital signs: Vital Signs Temperature 98.0 F 02/02/22 16:25 Pulse Rate 77 02/02/22 16:25 Respiratory Rate 16 02/02/22 17:24 Blood Pressure 150/76 02/02/22 16:25 Pulse Oximetry 98 02/02/22 16:25 Oxygen Delivery Me thod 02/02/22 16:25 MDM - Back Pain/Injury Medical Decision Making Patient is a 37-year-old male comes to the ED with acute on chronic back pain. Patient is currently being referred to pain management but has not gotten appointment set up with them yet. He also has been seen by Dr. Romero for his back problems. Patient has history of degenerative disc disease at L5-S1. About 4 or 5 days ago patient started developing worsening pain and back and pain that radiates down into the right leg as well. He rates his pain currently 9 out of 10. Denies cauda equina symptoms. Vitals stable. Exam of patient shows bilateral lumbar paraspinal muscle tenderness around L4 and L5. Rest of exam is benign. Patient was given a dose of Norflex, morphine and Solu-Medrol here in the ED. He was stable for discharge home and diagnosed with lumbar radiculopathy. He was sent home with a prescription for hydrocodone for pain, prednisone and Flexeril. Told him to follow-up with his PCP in the next week for reevaluation. Return to ED precautions given. Patient understood and agreed with plan. Discharge Plan Discharge Patient Disposition: Home Clinical Impression: Lumbar radiculopathy Condition: Stable Prescriptions: New prednisone 20 mg tablet 20 mg PO BID 7 Days Qty: 14 0RF cyclobenzaprine 10 mg tablet 10 mg PO BID PRN (Reason: muscle spasm) Qty: 20 0RF No Action ondansetron 4 mg tablet,disintegrating 4 mg PO Q8H PRN (Reason: nausea and vomiting) Qty: 90 1RF tamsulosin 0.4 mg capsule 0.4 mg PO DAILY Qty: 30 12RF Saccharomyces boulardii [Daily Probiotic (S. boulardii)] 250 mg capsule 250 mg PO BID Protonix 40 mg tablet,delayed release (DR/EC) 40 mg PO BID 90 Days Qty: 180 1RF Trelegy Ellipta 100-62.5-25 mcg blister with device 1 inh INHALATION DAILY Qty: 60 8RF hydrocodone-acetaminophen 5-325 mg tablet 1 tab PO Q8H PRN (Reason: pain) 30 Days Qty: 30 0RF tizanidine 4 mg tablet See Rx Instructions .ROUTE .COMPLEX Qty: 90 0RF Dose Instruction: TAKE 1 AND 1/2 TABLET (6 MG) BY MOUTH TWICE DAILY Rx Instructions: TAKE 1 AND 1/2 TABLET (6 MG) BY MOUTH TWICE DAILY ProAir HFA 90 mcg/actuation HFA aerosol inhaler 2 inh inhalation Q4H PRN (Reason: shortness of breath or wheezing) Qty: 6.7 0RF Discharge Orders: Discharge ED (Routine); Ordered 02/02/22 Ordered By: Deandre Hoffmann Referrals: Andrew Alvarenga MD [Primary Care Provider] - Discharge Diet: Regular Discharge Activity: Increase activity as tolerated Patient Instructions: Lumbar Radiculopathy (ED), Opioid Safety Activity Restrictions/Additional Instructions: Follow-up with medical provider as directed in the next 7 to 10 days for reevaluation. Take medications as prescribed. You can start taking the prescribed prednisone tomorrow, since he received a dose of steroid here in the ED and that should last you for the rest of the day. Return to the ER or your medical provider if condition worsens. Please read and understand discharge instructions. Thank you for choosing [facility] for your healthcare needs today. Please realize this is an emergency room and that we are providing you with a medical screening exam and this may not be complete and all inclusive of all the testing and or work up that you may need to determine your ailment or severity of your illness. It is very important that you follow up as instructed or that you return to the Emergency Department should you have concerns or if your condition changes or worsens in any way. Coding Level of Care Code ED Animal Control Specialist for Alexis Fwryanne Exam Comprehensive
[2022-02-02 17:24] VITALS: RESP 16
[2022-02-02] MEDS: morphine 4 mg/mL SDV 1 mL IM (17:24)
[2022-02-02] MEDS: orphenadrine 30 mg/mL Inj 2 mL 60 MG IM (17:25)
== END 2022-02-02 17:44 | disposition home or self-care (01) ==
PROVIDERS: Emergency Provider Physician Assistant; PCP Family Medicine
DX: M51.17 Intervertebral disc disorders with radiculopathy, lumbosacral region (principal); J44.9 Chronic obstructive pulmonary disease, unspecified; Z87.891 Personal history of nicotine dependence
CPT/HCPCS: 96372; 99284; J2270; J2360; J2930

== ENCOUNTER → 2022-02-05 13:13 | Outpatient (BNVA) | payer SELFPAY | PROVIDERS: PCP Family Medicine; Visit Provider Family Medicine | DX: L98.9 Disorder of the skin and subcutaneous tissue, unspecified (principal) | CPT/HCPCS: 88304 ==

== ENCOUNTER 2022-04-10 00:34 | Emergency (ER) | payer SELFPAY ==
[2022-04-10 00:45] VITALS: BP 154/98; PULSE 91; RESP 15; TEMP 36.6; O2SAT 98; BMI 20.9
--- NOTE | 2022-04-10 00:57 | XRR_ITS ---
PROCEDURE INFORMATION: Exam: XR Thoracic Spine Exam date and time: 04/10/2022 1:00 AM Age: 37 years old Clinical indication: Pain in thoracic spine; Patient HX: C/O worsening upper back pain. History of compression fracture. ; Additional info: Back pain acute on chronic TECHNIQUE: Imaging protocol: Radiologic exam of the thoracic spine. Views: 3 views. COMPARISON: CR XR chest 1V portable [id number] 01/31/2021 1:58 PM FINDINGS: Bones/joints: Redemonstration of compression deformities of the superior endplates of T4, T5, T6, and T7 and to a lesser extent T8 vertebral bodies. These findings are better seen on the prior CT of the chest, abdomen, and pelvis from 10/19/2020. The osseous structures appear otherwise grossly intact. No evidence of acute fractures. Soft tissues: See Bones/joints finding. XR/XR thoracic spine 3V* [id number] IMPRESSION: 1. Redemonstration of compression deformities of the superior endplates of T4-T8. 2. No new acute fractures are identified.
--- NOTE | 2022-04-10 01:30 | ED_ITS ---
HPI - Back Pain/Injury General: Chief Complaint: Back Pain/Injury Stated Complaint: back pain Time Seen by Provider: 04/10/22 00:46 History of Present Illness: Patient is in today for complaints of acute on chronic back pain. He reports that he has chronic compression fractures in the spine. He reports that since Friday he has been having pain in his left side upper back around the shoulder blade. He denies any specific injury. He does take chronic pain medication at home including hydrocodone twice a day and tizanidine. He reports a constant burning. He denies fever, chills, nausea, vomiting. He did go see his primary care provider today was given a shot of steroid and told to come to the ER should he get any worse. He denies any weakness of his extremities or legs. He denies radiation of pain. He denies shortness of breath. Associated symptoms: Deny chills or fever(s) Review of Systems Const: Denies: fever(s) or chills Card: Denies: chest pain, palpitations or irregular heart rhythm Resp: Denies: dyspnea, productive cough or non-productive cough PFSH ED PFSH: Medical History Chronic post-traumatic stress disorder COPD, mild Depression Frequent headaches Gastritis Generalized anxiety disorder Lower urinary tract symptoms (LUTS) Major depressive disorder, recurrent, in full remission with anxious distress Medical marijuana use Patient reports prescribed for his back and appetite Neuropathy Nicotine dependence, other tobacco product, uncomplicated Vaping Peptic ulcer disease Polyuria Psychiatric care Seizures Surgical History H/O oral surgery History of endoscopy Hx of umbilical hernia repair Status post laparoscopic cholecystectomy (02/21/20) Family History Mother History of shingles Grandfather Myocardial infarction CAD (coronary artery disease) Other Cancer Diabetes Denies family history of Anesthesia complication Bleeding disorder Social History Smoking and tobacco status: former smoker Alcohol intake: never Household members: spouse Marital status: Current occupational status: employed History of recent travel: No Physical Exam Const: COMMON NORMALS: no acute distress, patient oriented x3 and alert Resp: COMMON NORMALS: normal respiratory effort and No use of accessory muscles Back/Pelvis: OTHER: patient with tenderness to palpation trapezius muscle left side surrounding shoulder blade. Palpation of this area reproduces pain complaint. No obvious bony or soft tissue deformity appreciated. Neuro: COMMON NORMALS: patient oriented x3 SENSORIUM/ORIENTATION: Yes alert Course Vital Signs: Vital signs: Vital Signs Temperature 97.9 F 04/10/22 00:45 Pulse Rate 87 04/10/22 01:38 Respiratory Rate 19 H 04/10/22 02:21 Blood Pressure 154/98 04/10/22 01:38 Pulse Oximetry 97 04/10/22 01:38 Oxygen Delivery Me thod 04/10/22 00:45 MDM - Back Pain/Injury Medical Decision Making Back pain, muscle spasm, acute on chronic back pain. X-ray done just given patient's history of compression fracture he is concerned that there is something structural that has changed. X-ray thoracic spine shows redemonstration of compression deformities of the superior endplates of T4-T8. No new acute fractures identified. Patient already has chronic pain control and a contract with another provider. He takes chronic tizanidine. He received a steroid injection today. I discussed the case with Dr. Pan who agrees with giving him 1 dose of pain control while in ER tonight but not sending any prescription home given the patient's pain contract. Follow-up with chronic pain management and PCP. Return to the ER for new or worsening symptoms Labs Radiology Impressions Thoracic Spine X-Ray 04/10/22 00:57 IMPRESSION: 1. Redemonstration of compression deformities of the superior endplates of T4-T8. 2. No new acute fractures are identified. Discharge Plan Discharge Patient Disposition: Home Clinical Impression: Thoracic back pain Condition: Stable Prescriptions: No Action tamsulosin 0.4 mg capsule 0.4 mg PO DAILY Qty: 30 12RF Saccharomyces boulardii [Daily Probiotic (S. boulardii)] 250 mg capsule 250 mg PO BID lidocaine (PF) 10 mg/mL (1 %) solution 10 mg SUBCUT ONCE Qty: 1 0RF hydrocodone-acetaminophen 5-325 mg tablet 1 tab PO Q8H PRN (Reason: pain) 30 Days Qty: 60 0RF ondansetron 4 mg tablet,disintegrating 4 mg PO Q8H PRN (Reason: nausea and vomiting) Qty: 90 1RF Trelegy Ellipta 100-62.5-25 mcg blister with device 1 inh INHALATION DAILY Qty: 60 8RF Protonix 40 mg tablet,delayed release (DR/EC) 40 mg PO BID 90 Days Qty: 180 1RF tizanidine 4 mg tablet See Rx Instructions .ROUTE .COMPLEX Qty: 90 0RF Dose Instruction: TAKE 1 AND 1/2 TABLET (6 MG) BY MOUTH TWICE DAILY Rx Instructions: TAKE 1 AND 1/2 TABLET (6 MG) BY MOUTH TWICE DAILY ProAir HFA 90 mcg/actuation HFA aerosol inhaler 2 inh inhalation Q4H PRN (Reason: shortness of breath or wheezing) Qty: 6.7 0RF cyclobenzaprine 10 mg tablet 10 mg PO BID PRN (Reason: muscle spasm) Qty: 20 0RF Discharge Orders: Discharge ED (Routine); Ordered 04/10/22 Ordered By: Joslyn Echols Referrals: Andrew Alvarenga MD [Primary Care Provider] - Discharge Diet: Usual diet Discharge Activity: Increase activity as tolerated Patient Instructions: Back Pain (ED) Activity Restrictions/Additional Instructions: Your x-ray today did not show any acute findings. Continue muscle relaxant medications at home. I recommend warm moist heat alternating with ice to the affected area. Follow-up with pain control provider and primary care provider for continued evaluation and treatment. Return to the ER for new or worsening symptoms Stand Alone Forms: Work/School Release Coding Level of Care Code ED Client Development Manager for Alexis Fwd Exam Expanded Problem Focused
[2022-04-10 01:38] VITALS: BP 154/98; PULSE 87; RESP 19; O2SAT 97
[2022-04-10 02:21] VITALS: RESP 19
[2022-04-10] MEDS: morphine 4 mg/mL SDV 1 mL IM (02:21)
== END 2022-04-10 02:25 | disposition home or self-care (01) ==
PROVIDERS: Emergency Provider Nurse Practitioner Family; PCP Family Medicine
DX: M54.6 Pain in thoracic spine (principal); Z87.891 Personal history of nicotine dependence; J44.9 Chronic obstructive pulmonary disease, unspecified
CPT/HCPCS: 72072; 96372; 99284; J2270

== ENCOUNTER 2022-04-22 15:56 | Outpatient (CLI) | payer SELFPAY ==
--- NOTE | 2022-04-22 16:00 | CT_ITS ---
WS: [id number] CT THORACIC SPINE TECHNIQUE: Contrast-enhanced CT of the thoracic spine with coronal and sagittal reformatted images. CLINICAL INFORMATION: rapidly worsening upper back pain, abnormal x ray COMPARISON: None. DLP: 1128.[address] scans at [facility] use at least one of these dose optimization techniques: automated e xposure control; mA and/or kV adjustment per patient size (includes targeted exams where dose is matc hed to clinical indication); or iterative reconstruction. FINDINGS: Mild thoracic curve. Moderate thoracic kyphosis. Partially visualized lungs are well aerated with emp hysematous changes. Adrenal glands are normal. Mild compression superior endplates at T4, T5, T6, T7. Small amount of air in the disc spaces with vacuum disc phenomenon at T5-T6, T6-T7, T7-T8. No retrop ulsion. Mild compression fractures appear unchanged since the prior MRI November 13, 2021. No abnormal enhanceme nt. CT/CT thoracic spine w con [id number] IMPRESSION: 1. Mild thoracic curve. Mild upper thoracic kyphosis. 2. Mild compression superior endplates at T4, T5, T6, T7. This appears unchang ed since the prior MRI November 13, 2021. No new compression fractures. 3. No retropulsion. 4. Disc space narrowing at T5-T6 T6-T7 and T7-T8 appears slightly progressed c ompared to prior MRI. 5. No other acute findings.
[2022-04-22] MEDS: iohexol 350 mg/mL 100 mL Btl IV (16:17)
== END 2022-04-22 15:57 | disposition home or self-care (01) ==
LOC: RAD 16:01
PROVIDERS: PCP Family Medicine; Visit Provider Family Medicine
DX: M54.6 Pain in thoracic spine (principal)
CPT/HCPCS: 72129; Q9967

== ENCOUNTER → 2022-05-28 11:16 | Outpatient (BNVA) | payer SELFPAY | PROVIDERS: PCP Family Medicine; Referring Provider Family Medicine; Visit Provider Orthopaedic Surgery | DX: M89.8X1 Other specified disorders of bone, shoulder (principal) | CPT/HCPCS: 73030 ==

== ENCOUNTER 2022-06-18 16:09 | Emergency (ER) | payer SELFPAY ==
[2022-06-18 16:12] VITALS: BP 133/84; PULSE 72; RESP 16; TEMP 36.8; O2SAT 97; BMI 20.9
--- NOTE | 2022-06-18 17:39 | CTR_ITS ---
PROCEDURE INFORMATION: Exam: CT Thoracic Spine Without Contrast Exam date and time: 06/18/2022 6:39 PM Age: 37 years old Clinical indication: Pain in thoracic spine; Additional info: , HX of ddd, thoracic back pain with radiation left scapula TECHNIQUE: Imaging protocol: Computed tomography of the thoracic spine without contrast. Radiation optimization: All CT scans at this facility use at least one of these dose optimization techniques: automated exposure control; mA and/or kV adjustment per patient size (includes targeted exams where dose is matched to clinical indication); or iterative reconstruction. Other protocol: This patient has received [address] and 0 known cardiac nuclear medicine studies in the 12 months prior to the current study. COMPARISON: CT thoracic spine w con [id number] 04/22/2022 4:12 PM RADIATION DOSE METRICS: Total DLP (mGy-cm): 821.21 FINDINGS: Bones/joints: Mild superior endplate compression fracture deformities T4-T8 are not significantly changed with 04/22/2022 CT scan. The alignment of the thoracic spine is near anatomic. The other vertebral body heights are maintained. No acute displaced fracture. Mild multilevel degenerative changes are stable. Soft tissues: Unremarkable. Lungs: Minimal apical bulla formation unchanged. CT/CT thoracic spin wo con* [id number] IMPRESSION: Mild T4-T8 superior endplate compression fractures are not significantly changed. No new acute displaced fracture.
[2022-06-18 17:55] VITALS: RESP 17
[2022-06-18] MEDS: ondansetron 4 MG Tablet PO ×2 (17:55→19:35)
[2022-06-18] MEDS: morphine 4 mg/mL SDV 1 mL IM (17:55)
--- NOTE | 2022-06-18 19:10 | ED_ITS ---
Documented by User: JOAN Simms 06/18/22 19:56 HPI - Back Pain/Injury General: Chief Complaint: Back Pain/Injury Stated Complaint: back pain Time Seen by Provider: 06/18/22 17:07 History of Present Illness: Patient is in today for back pain. He reports pain along his left scapula. He reports that this has been ongoing for months now and he cannot get any relief. He denies that he has had any new or recent injuries. He reports it is worse with movement but it hurts all of the time. He does report that he is currently taking hydrocodone at home with no relief. He reports that he is very nauseated from the pain. He denies any fever, chil ls. Associated symptoms: Reports nausea and vomiting; Deny abdominal pain, chills, dysuria or fever(s) Review of Systems Const: Denies: fever(s) or chills Card: Denies: chest pain, palpitations or irregular heart rhythm Resp: Denies: dyspnea, productive cough or non-productive cough GI: Reports: nausea and vomiting; Denies: abdominal pain : Denies: flank pain, difficulty urinating or dysuria Musc: Reports: back pain Neuro: Denies: headache(s), numbness in extremities, weakness in extremities, lack of coordination or dizziness PFSH ED PFSH: Medical History Chronic post-traumatic stress disorder COPD, mild Depression Frequent headaches Gastritis Generalized anxiety disorder Lower urinary tract symptoms (LUTS) Major depressive disorder, recurrent, in full remission with anxious distress Medical marijuana use Patient reports prescribed for his back and appetite Neuropathy Nicotine dependence, other tobacco product, uncomplicated Vaping Peptic ulcer disease Polyuria Psychiatric care Seizures Surgical History H/O oral surgery History of endoscopy Hx of umbilical hernia repair Status post laparoscopic cholecystectomy (02/21/20) Family History Mother History of shingles Grandfather Myocardial infarction CAD (coronary artery disease) Other Cancer Diabetes Denies family history of Anesthesia complication Bleeding disorder Social History Smoking and tobacco status: former smoker Alcohol intake: never Household members: spouse Marital status: Current occupational status: employed History of recent travel: No Physical Exam Const: OTHER: Patient appears to be in acute pain. He is sitting bent over in the chair. He is holding an emesis bag although I have not seen him vomit. Neck/C-Spine: COMMON NORMALS: no JVD Resp: COMMON NORMALS: normal respiratory effort, No use of accessory muscles and clear to auscultation bilaterally AUSCULTATION: clear to auscultation bilaterally Cardio: COMMON NORMALS: no JVD, regular rate, regular rhythm, S1 normal heart sound present, S2 normal heart sound present and No murmurs present (Cardio) RATE: regular rate RHYTHM: regular rhythm HEART SOUNDS: S1 normal heart sound present and S2 normal heart sound present Back/Pelvis: OTHER: Patient has reproducible pain with palpation surrounding the musculature of the left scapula. There is tenderness along the entire thoracic spine however there is no significant point tenderness. No obvious bony deformity is palpated. There is muscular tension surrounding the left scapula. Pain is worse with movement of the left arm. There is reported radiation of pain down the left arm. CSM to the left arm is within normal limits. Course Vital Signs: Vital signs: Vital Signs Temperature 97.6 F 06/18/22 19:41 Pulse Rate 62 06/18/22 19:41 Respiratory Rate 15 06/18/22 19:41 Blood Pressure 133/87 06/18/22 19:41 Pulse Oximetry 98 06/18/22 19:41 Oxygen Delivery Me thod 06/18/22 19:41 MDM - Back Pain/Injury Medical Decision Making Patient is in today for chronic left scapular pain. He has been seen by Dr. Beck in May for this complaint. He has documented diagnosis of compression fractures T4-T7 in the absence of any trauma. He also follows with Dr. Romero for L5-S1 with discussion of surgery. In reviewing his note from Dr. Beck?Dr. Lechuga recommended EMG study and patient declined because he cannot deal with the pain of that study. Dr. Beck referred him to Dr. Romero with whom the patient had an appointment with today. He states that he went to the appointment but the surgeon was in an emergency surgery and so he decided to come to the ER. He is on chronic pain control at home with hydrocodone and a pain contract. He reports that that is not helping his pain at all. He is requesting a CT scan today. CT scan shows no acute displaced fractures. T4-T8 superior endplate compression fractures not significantly changed. Patient was still complaining of pain after the morphine. Treated him with 5 mg of Valium p.o. x1 dose. Patient reported improvement in pain and was sitting more comfortably in the chair after the Valium. I recommended patient to follow-up tomorrow with Dr. Romero's office and also keep following up with primary care provider for ongoing evaluation and monitoring. Return to the ER for new or worsening symptoms Labs Radiology Impressions Thoracic Spine CT 06/18/22 17:39 IMPRESSION: Mild T4-T8 superior endplate compression fractures are not significantly changed. No new acute displaced fracture. Discharge Plan Discharge Patient Disposition: Home Clinical Impression: Chronic pain of scapula Condition: Stable Prescriptions: No Action tamsulosin 0.4 mg capsule 0.4 mg PO DAILY Qty: 30 12RF Saccharomyces boulardii [Daily Probiotic (S. boulardii)] 250 mg capsule 250 mg PO BID lidocaine (PF) 10 mg/mL (1 %) solution 10 mg SUBCUT ONCE Qty: 1 0RF hydrocodone-acetaminophen 5-325 mg tablet 1 tab PO Q8H PRN (Reason: pain) 30 Days Qty: 60 0RF ondansetron 4 mg tablet,disintegrating 4 mg PO Q8H PRN (Reason: nausea and vomiting) Qty: 90 1RF Trelegy Ellipta 100-62.5-25 mcg blister with device 1 inh INHALATION DAILY Qty: 60 8RF Protonix 40 mg tablet,delayed release (DR/EC) 40 mg PO BID 90 Days Qty: 180 1RF tizanidine 4 mg tablet See Rx Instructions .ROUTE .COMPLEX Qty: 90 3RF Dose Instruction: TAKE 1 AND 1/2 TABLET (6 MG) BY MOUTH TWICE DAILY Rx Instructions: TAKE 1 AND 1/2 TABLET (6 MG) BY MOUTH TWICE DAILY ProAir HFA 90 mcg/actuation HFA aerosol inhaler 2 inh inhalation Q4H PRN (Reason: shortness of breath or wheezing) Qty: 6.7 0RF cyclobenzaprine 10 mg tablet 10 mg PO BID PRN (Reason: muscle spasm) Qty: 20 0RF Discharge Orders: Discharge ED (Routine); Ordered 06/18/22 Ordered By: Joslyn Echols Referrals: Andrew Alvarenga MD [Primary Care Provider] - Discharge Diet: Usual diet Discharge Activity: Increase activity as tolerated Activity Restrictions/Additional Instructions: Your CT scan did not show any acute changes tonight. I recommend continued follow-up with spinal surgeon and your primary care provider for ongoing monitoring and evaluation. Return to the ER as needed for new or worsening symptoms Coding Level of Care Code ED Computer Instructor for Chg Fwd Documented by User: Sampson Lopez DO 06/19/22 06:08 HPI - Back Pain/Injury General: Chief Complaint: Back Pain/Injury Stated Complaint: back pain Time Seen by Provider: 06/18/22 17:07 PFSH ED PFSH: Medical History Chronic post-traumatic stress disorder COPD, mild Depression Frequent headaches Gastritis Generalized anxiety disorder Lower urinary tract symptoms (LUTS) Major depressive disorder, recurrent, in full remission with anxious distress Medical marijuana use Patient reports prescribed for his back and appetite Neuropathy Nicotine dependence, other tobacco product, uncomplicated Vaping Peptic ulcer disease Polyuria Psychiatric care Seizures Surgical History H/O oral surgery History of endoscopy Hx of umbilical hernia repair Status post laparoscopic cholecystectomy (02/21/20) Family History Mother History of shingles Grandfather Myocardial infarction CAD (coronary artery disease) Other Cancer Diabetes Denies family history of Anesthesia complication Bleeding disorder Social History Smoking and tobacco status: former smoker Alcohol intake: never Household members: spouse Marital status: Current occupational status: employed History of recent travel: No Course Vital Signs: Vital signs: Vital Signs Temperature 97.6 F 06/18/22 19:41 Pulse Rate 62 06/18/22 19:41 Respiratory Rate 15 06/18/22 19:41 Blood Pressure 133/87 06/18/22 19:41 Pulse Oximetry 98 06/18/22 19:41 Oxygen Delivery Me thod 06/18/22 19:41 MDM - Back Pain/Injury Medical Decision Making Patient is in today for chronic left scapular pain. He has been seen by Dr. Beck in May for this complaint. He has documented diagnosis of compression fractures T4-T7 in the absence of any trauma. He also follows with Dr. Romero for L5-S1 with discussion of surgery. In reviewing his note from Dr. Beck?Dr. Lechuga recommended EMG study and patient declined because he cannot deal with the pain of that study. Dr. Beck referred him to Dr. Romero with whom the patient had an appointment with today. He states that he went to the appointment but the surgeon was in an emergency surgery and so he decided to come to the ER. He is on chronic pain control at home with hydrocodone and a pain contract. He reports that that is not helping his pain at all. He is requesting a CT scan today. CT scan shows no acute displaced fractures. T4-T8 superior endplate compression fractures not significantly changed. Patient was still complaining of pain after the morphine. Treated him with 5 mg of Valium p.o. x1 dose. Patient reported improvement in pain and was sitting more comfortably in the chair after the Valium. I recommended patient to follow-up tomorrow with Dr. Romero's office and also keep following up with primary care provider for ongoing evaluation and monitoring. Return to the ER for new or worsening symptoms Chart reviewed and patient discussed with midlevel. Agree with assessment and plan. Labs Radiology Impressions Thoracic Spine CT 06/18/22 17:39 IMPRESSION: Mild T4-T8 superior endplate compression fractures are not significantly changed. No new acute displaced fracture. Discharge Plan Discharge Patient Disposition: Home Clinical Impression: Chronic pain of scapula Condition: Stable Prescriptions: No Action tamsulosin 0.4 mg capsule 0.4 mg PO DAILY Qty: 30 12RF Saccharomyces boulardii [Daily Probiotic (S. boulardii)] 250 mg capsule 250 mg PO BID lidocaine (PF) 10 mg/mL (1 %) solution 10 mg SUBCUT ONCE Qty: 1 0RF hydrocodone-acetaminophen 5-325 mg tablet 1 tab PO Q8H PRN (Reason: pain) 30 Days Qty: 60 0RF ondansetron 4 mg tablet,disintegrating 4 mg PO Q8H PRN (Reason: nausea and vomiting) Qty: 90 1RF Trelegy Ellipta 100-62.5-25 mcg blister with device 1 inh INHALATION DAILY Qty: 60 8RF Protonix 40 mg tablet,delayed release (DR/EC) 40 mg PO BID 90 Days Qty: 180 1RF tizanidine 4 mg tablet See Rx Instructions .ROUTE .COMPLEX Qty: 90 3RF Dose Instruction: TAKE 1 AND 1/2 TABLET (6 MG) BY MOUTH TWICE DAILY Rx Instructions: TAKE 1 AND 1/2 TABLET (6 MG) BY MOUTH TWICE DAILY ProAir HFA 90 mcg/actuation HFA aerosol inhaler 2 inh inhalation Q4H PRN (Reason: shortness of breath or wheezing) Qty: 6.7 0RF cyclobenzaprine 10 mg tablet 10 mg PO BID PRN (Reason: muscle spasm) Qty: 20 0RF Discharge Orders: Discharge ED (Routine); Ordered 06/18/22 Ordered By: Joslyn Echols Referrals: Andrew Alvarenga MD [Primary Care Provider] - Discharge Diet: Usual diet Discharge Activity: Increase activity as tolerated Activity Restrictions/Additional Instructions: Your CT scan did not show any acute changes tonight. I recommend continued follow-up with spinal surgeon and your primary care provider for ongoing monitoring and evaluation. Return to the ER as needed for new or worsening symptoms Coding Level of Care Code ED Computer Instructor for Alexis Gonzalez
[2022-06-18] MEDS: diazePAM 5 mg Tablet PO (19:35)
[2022-06-18 19:41] VITALS: BP 133/87; PULSE 62; RESP 15; TEMP 36.4; O2SAT 98
== END 2022-06-18 20:05 | disposition home or self-care (01) ==
PROVIDERS: Emergency Provider Nurse Practitioner Family; PCP Family Medicine
DX: G89.29 Other chronic pain (principal); M25.512 Pain in left shoulder; Z87.891 Personal history of nicotine dependence; J44.9 Chronic obstructive pulmonary disease, unspecified
CPT/HCPCS: 72128; 96372; 99284; J2270; Q0162

== ENCOUNTER 2022-07-11 05:58 | Day surgery (SDC) | payer SELFPAY ==
[2022-07-09 10:43] VITALS: BMI 21.4
[2022-07-11] VITALS (13 sets, daily range): BP systolic 106–137; BP diastolic 61–89; PULSE 46–83; RESP 16–25; TEMP 36.6–36.8; O2SAT 95–100
[2022-07-11] MEDS: diphenhydrAMINE 50 mg/mL SDV 1mL 12.5 MG IVP (06:47)
[2022-07-11] MEDS: ondansetron 2 mg/ML SDV 2 mL 4 MG IVP (06:48)
--- NOTE | 2022-07-11 06:48 | P.HP_ITS ---
Providers/Chief Complaint Primary Care Provider: Andrew Alvarenga MD Chief Complaint: K40.20 History of Present Illness Peter Brito III is a 37 year old male here for bilateral inguinal hernia repairs with mesh Medications/Allergies Home Medications Medication Instructions Recorded Confirmed Last Taken Type albuterol sulfate 90 mcg/actuation 2 inh inhalation Q4H PRN shortness 05/24/21 07/09/22 1 Day Ago Rx aerosol inhaler (ProAir HFA) of breath or wheezing #6.7 grams ~07/08/22 tamsulosin 0.4 mg capsule 0.4 mg PO DAILY #30 caps 08/02/21 07/10/22 07/10/22 Rx Saccharomyces boulardii 250 mg 250 mg PO BID 09/25/21 07/09/22 07/10/22 History capsule (Daily Probiotic (S. boulardii)) fluticasone fur. 100 mcg-umeclid 1 inh inhalation DAILY #60 ea 10/25/21 07/09/22 07/11/22 Rx 62.5 mcg-vilant 25 mcg inhalat.powder (Trelegy Ellipta) hydrocodone 5 mg-acetaminophen 325 1 tab PO Q8H PRN pain 1 month #60 03/05/22 0 07/10/22 07/11/22 Rx mg tablet tabs ondansetron 4 mg disintegrating 4 mg PO Q8H PRN nausea and 03/05/22 07/09/22 1 Day Ago Rx tablet vomiting #90 tabs ~07/08/22 pantoprazole 40 mg tablet,delayed 40 mg PO BID 90 days #180 tabs 07/09/22 07/09/22 07/10/22 Rx release (Protonix) tizanidine 4 mg tablet 4 mg PO TID 07/09/22 07/10/22 07/11/22 History Allergies Allergy/AdvReac Type Severity Reaction Status Date / Time divalproex sodium Allergy hives Verified 07/09/22 10:39 [From Depakote] ketorolac [From Toradol] Allergy hives Verified 07/09/22 10:39 Penicillins Allergy hives Verified 07/09/22 10:39 bologna Allergy ALGY-Anaphy Uncoded 07/09/22 10:39 laxis hot dogs Allergy ALGY-Anaphy Uncoded 07/09/22 10:39 laxis PFSH Acute PFSH: Medical History Chronic post-traumatic stress disorder COPD, mild Depression Frequent headaches Gastritis Generalized anxiety disorder Lower urinary tract symptoms (LUTS) Major depressive disorder, recurrent, in full remission with anxious distress Medical marijuana use Patient reports prescribed for his back and appetite Neuropathy Nicotine dependence, other tobacco product, uncomplicated Vaping Peptic ulcer disease Polyuria Seizures Surgical History H/O oral surgery History of endoscopy Hx of umbilical hernia repair Status post laparoscopic cholecystectomy (02/21/20) Family History Mother History of shingles Grandfather Myocardial infarction CAD (coronary artery disease) Other Cancer Diabetes Denies family history of Anesthesia complication Bleeding disorder Social History Smoking and tobacco status: former smoker Alcohol intake: never Household members: spouse Marital status: Current occupational status: employed History of recent travel: No Vitals/I&O/Wt Last Vital Signs Temp 98.3 F 07/11/22 06:19 Pulse 83 07/11/22 06:19 Resp 18 07/11/22 06:19 BP 110/74 07/11/22 06:19 Pulse Ox 96 07/11/22 06:19 O2 Del Method 07/11/22 06:27 Weight last 48 hrs Weight 125 lb A&P Assessment and plan (1) Bilateral inguinal hernia: Plan Laparoscopic bilateral inguinal hernia repairs with mesh Attestations Medical Necessity Statement*: HOME Coding Level of Care Code Acute Code for Chg Fwd Diagnoses Bilateral inguinal hernia K40.20
[2022-07-11] MEDS: sodium chloride 0.9% 1,000 ML 30 ML IV (06:53)
[2022-07-11] MEDS: vancomycin 1,000 MG in sodium chloride 0.9% 250 ML 250 MG IV (07:06)
--- NOTE | 2022-07-11 09:00 | P.OP_ITS ---
Operative Report Date of procedure: July 11, 2022 Pre-op diagnosis: Preop Diagnosis Bilateral inguinal hernias Post-op diagnosis: other (Bilateral indirect inguinal hernias) Procedure done: Laparoscopic (TEPP) repair of bilateral inguinal hernias with mesh Implants: Left and right large Bard inguinal meshes Surgeon: Dr. Francisco De DO Anesthesia: General Estimated blood loss (mL): 5 Complications: None apparent Brief History: This very pleasant 37-year-old gentleman who presents my office with bilateral inguinal hernias. Laparoscopic repair with mesh was indicated. The risks and benefits were explained and documented. Procedure: Patient was wheeled into the operative room and placed on the OR table in a supine position. Abdomen was inspected prepped and draped in usual sterile f ashion. Time-out was performed and all present were in agreement. A 15 blade scalpel was used to make 1.2 centimeter incision infraumbilically. Combination of sharp and blunt dissection was performed down to the anterior rectus sheath which was opened sharply. The dissecting balloon was then inserted into the space of Retzius and blown up. We put the camera into the port and identified that we were in the correct space. I then placed 2 5 millimeter trocars suprapubically in the midline. I then used endokitners to bluntly dissect in the space of Retzius out laterally. An indirect inguinal hernia was identified on the right. Blunt dissection was performed to dissect down the hernia sac until the vas deferens dove medially. A large right inguinal mesh was then placed into the space of Retzius. The mesh was unrolled and tacked once medially at the pubic bone. The mesh laid out nicely over the spermatic cord. An indirect inguinal hernia was identified on the left. Blunt dissection was performed to dissect down the hernia sac until the vas deferens dove medially. A large left inguinal mesh was then placed into the space of Retzius. The mesh was unrolled and tacked once medially at the pubic bone. The mesh laid out nicely over the spermatic cord. Small holes in the peritoneum were closed on each side with clip bending machine set up operator's. I watched the hernia sacs remain in place as in sufflation was removed. Incisions were closed with 4 O Vicryl in a subcuticular interrupted fashion. Skin glue was applied. Patient tolerated the procedure well.
--- NOTE | 2022-07-11 09:02 | SUR.OPER ---
5ML 2% LIDOCAINE WITH EPI WAS INJECTED INTO THE ABDOMEN.
--- NOTE | 2022-07-11 10:56 | P.ANESASSM_ITS ---
Pre-Anesthetic Assessment Height/Weight: Height 1.63 m Weight 56.699 kg Temp Pulse Resp BP Pulse Ox O2 Del Method O2 Flow Rate 98.2 F 68 16 126/72 96 6 07/11/22 10:10 07/11/22 10:10 07/11/22 10:10 07/11/22 10:10 07/11/22 10:10 07/11/22 10:10 07/11/22 09:30 Preop Diagnosis: Bilateral inguinal hernias Operation Date: 07/11/22 07:00 Proposed Procedures p lap bilateral ingunial hernia repair with mesh [id number] 2x,K40.20(Bilateral) - Francisco De DO Familial anesthetic complications: none Was Beta Leanna taken within 24 hours: N/A Was Clonidine taken within 24 hours: N/A Last intake: Intake Last Liquid Date 07/10/22 Last Liquid Time 20:30 Last Solid Date 07/10/22 Last Solid Time 20:30 Social Tobacco and No alcohol Exam alert, oriented x 3 and regular rate & rhythm Airway Submandibular: within normal limits Cervical ROM: within normal limits Mallampati: Class II Dentition: false Pulmonary Chronic Obstructive Pulmonary Disease GI Gastroesophageal Reflux Disease [facility] [place] Lower Back Pain and Osteoarthritis/DJD chronic opioid Neuropsych Anxiety and Depression Anesthetic Plan ASA status: 3 Anesthesia: General and Regional (specify below) (Bilateral TAP blks) Medications/Allergies Home Medications Medication Instructions Recorded Confirmed Last Taken Type albuterol sulfate 90 mcg/actuation 2 inh inhalation Q4H PRN shortness 05/24/21 07/09/22 1 Day Ago Rx aerosol inhaler (ProAir HFA) of breath or wheezing #6.7 grams ~07/08/22 tamsulosin 0.4 mg capsule 0.4 mg PO DAILY #30 caps 08/02/21 07/10/22 07/10/22 Rx Saccharomyces boulardii 250 mg 250 mg PO BID 09/25/21 07/09/22 07/10/22 History capsule (Daily Probiotic (S. boulardii)) fluticasone fur. 100 mcg-umeclid 1 inh inhalation DAILY #60 ea 10/25/21 07/09/22 07/11/22 Rx 62.5 mcg-vilant 25 mcg inhalat.powder (Trelegy Ellipta) hydrocodone 5 mg-acetaminophen 325 1 tab PO Q8H PRN pain 1 month #60 03/05/22 07/10/22 07/11/22 Rx mg tablet tabs ondansetron 4 mg disintegrating 4 mg PO Q8H PRN nausea and 03/05/22 07/09/22 1 Day Ago Rx tablet vomiting #90 tabs ~07/08/22 pantoprazole 40 mg tablet,delayed 40 mg PO BID 90 days #180 tabs 07/09/22 07/09/22 07/10/22 Rx release (Protonix) tizanidine 4 mg tablet 4 mg PO TID 07/09/22 07/10/22 07/11/22 History docusate sodium 100 mg capsule 100 mg PO BID #20 caps 07/11/22 Unknown Rx (DOK) oxycodone-acetaminophen 7.5 mg-325 1 tab PO Q6H PRN pain #20 tabs 07/11/22 Unknown Rx mg tablet Allergies Allergy/AdvReac Type Severity Reaction Status Date / Time divalproex sodium Allergy hives Verified 07/09/22 10:39 [From Depakote] ketorolac [From Toradol] Allergy hives Verified 07/09/22 10:39 Penicillins Allergy hives Verified 07/09/22 10:39 bologna Allergy ALGY-Anaphy Uncoded 07/09/22 10:39 laxis hot dogs Allergy ALGY-Anaphy Uncoded 07/09/22 10:39 laxis Current Medications Generic Name Dose Route Start Last Admin Trade Name Freq PRN Reason Stop Dose Admin Diphenhydramine HCl 12.5 mg 07/11/22 06:01 07/11/22 06:47 Diphenhydramine 50 Mg/Ml Sdv 1ml IVP 12.5 mg ONCE PRN Administration PONV Sodium Chloride 1,000 mls @ 30 mls/hr 07/11/22 06:15 07/11/22 10:27 Sodium Chloride 0.9% IV 07/12/22 06:14 Infused .Q24H MAN Infusion Vancomycin HCl 1,000 mg/ 250 mls @ 250 mls/hr 07/11/22 06:47 07/11/22 07:43 Sodium Chloride IV 07/11/22 07:46 Infused [employer] Infusion Protocol Ondansetron HCl 4 mg 07/11/22 06:01 07/11/22 06:48 Ondansetron 2 Mg/Ml Sdv 2 Ml IVP 4 mg ONCE PRN Administration NAUSEA AND VOMITING PFSH Anesthesia Medical History Chronic post-traumatic stress disorder COPD, mild Depression Frequent headaches Gastritis Generalized anxiety disorder Lower urinary tract symptoms (LUTS) Major depressive disorder, recurrent, in full remission with anxious distress Medical marijuana use Patient reports prescribed for his back and appetite Neuropathy Nicotine dependence, other tobacco product, uncomplicated Vaping Peptic ulcer disease Polyuria Seizures Surgical History H/O oral surgery History of endoscopy Hx of umbilical hernia repair Status post laparoscopic cholecystectomy (02/21/20) Family History Mother History of shingles Grandfather Myocardial infarction CAD (coronary artery disease) Other Cancer Diabetes Denies family history of Anesthesia complication Bleeding disorder Social History Smoking and tobacco status: former smoker Alcohol intake: never Household members: spouse Marital status: Current occupational status: employed History of recent travel: No Data Anesthesia Cardiac Studies: No Data to Display
--- NOTE | 2022-07-11 10:57 | ANES.PROC ---
Anesthesia Procedures Procedure/Date: 07/11/22 Nerve Block ^: Nerve Block 1: Main Anesthesia: general anesthesia Time Out Performed: Yes Consent: requested by attending/covering physician, from patient, risks and benefits reviewed and patient agrees to proceed Nerve block location: other (Bilateral TAP blk) Anesthesia monitors applied: pulse oximetry, EKG, BP cuff and oxygen Nerve block position: supine Anesthetic Used: ropivicaine 0.5% Amount of anesthesia used (mL): 30 Ultrasound used to: recognize landmarks Nerve Stimulator Used?: No Interscalene/Femoral BLK: 4 stimuplex 21 g needle used for position and inplane approach Injection: neg aspiration of heme Patient Tolerated Procedure: well Complications: none
[2022-07-11] MEDS: HYDROcodone-acetaminophen 5-325 mg Tablet 1 TAB PO (11:12)
--- NOTE | 2022-07-11 17:06 | ANE.PACU2 ---
Inpatient post-anesthesia follow up: Airway intact: Yes Vital signs: Temperature 97.8 F Pulse Rate 61 Respiratory Rate 18 Blood Pressure 137/89 Pulse Oximetry 100 Oxygen Delivery Me thod Room Air Oxygen Flow Rate 6 Fraction of Inspir ed Oxygen Hydration adequate: Yes Nausea and vomiting: No Pain level: 2 Mental status: Baseline
== END 2022-07-11 11:50 | disposition home or self-care (01) ==
PROVIDERS: PCP Family Medicine; Visit Provider Surgery
PROC: (CPT 49650; principal; 2022-07-11 07:00)
DX: K40.20 Bilateral inguinal hernia, without obstruction or gangrene, not specified as recurrent (principal); J44.9 Chronic obstructive pulmonary disease, unspecified; K21.9 Gastro-esophageal reflux disease without esophagitis; Z79.891 Long term (current) use of opiate analgesic; Z87.891 Personal history of nicotine dependence; Z88.0 Allergy status to penicillin
CPT/HCPCS: 49650; 51702; C1781; J1100; J1170; J1200; J2250; J2405; J2704; J2710; J2795; J3010; J3370; J3490; J7030; J7050

== ENCOUNTER → 2022-08-13 14:02 | Outpatient (BNVA) | payer SELFPAY | PROVIDERS: PCP Family Medicine; Visit Provider Orthopaedic Surgery | DX: M25.519 Pain in unspecified shoulder (principal); M54.9 Dorsalgia, unspecified; M51.37 Other intervertebral disc degeneration, lumbosacral region; G89.29 Other chronic pain; W13.2XXA Fall from, out of or through roof, initial encounter | CPT/HCPCS: 72070; 72220; 73030 ==

== ENCOUNTER → 2022-09-03 13:41 | Outpatient (BNVA) | payer SELFPAY | PROVIDERS: PCP Family Medicine; Visit Provider Physician Assistant | DX: M54.2 Cervicalgia (principal); M25.519 Pain in unspecified shoulder | CPT/HCPCS: 72050 ==

== ENCOUNTER 2022-09-09 12:55 | Outpatient (CLI) | payer SELFPAY ==
--- NOTE | 2022-09-09 13:00 | MR_ITS ---
WS: [id number] MRI LUMBAR SPINE NONCONTRAST TECHNIQUE: Sagittal T1, T2 and STIR imaging. Axial T1 and T2 imaging. CLINICAL INFORMATION: low back pain, BLE numbness/tingling/weakness COMPARISON: MRI November 13, 2021 FINDINGS: Mild lumbar curve. No acute compression. Disc bulging worse L5-S1 with impingement on traversing S1 n erve roots bilaterally LEFT greater than RIGHT. Mild central canal stenosis at this level. L1-L2: Normal. L2-L3: Normal. L3-L4: No significant disc bulging. Mild facet arthropathy. Spinal canal and foramen are patent. L4-L5: Mild annular bulging. Slight effacement of the ventral thecal sac with mild narrowing of the s ubarticular recess bilaterally. Mild facet arthropathy. Mild LEFT greater than RIGHT foraminal narrow ing. L5-S1: Disc bulging with a tiny shallow central protrusion. Mild central canal stenosis. Impingement traversing S1 nerve roots bilaterally. Severe LEFT foraminal narrowing impinges the exiting LEFT L5 n erve root laterally. Mild RIGHT foraminal narrowing. Moderate facet arthropathy. LEFT peripelvic renal cysts. MR/MR lumbar spine wo con* [id number] IMPRESSION: 1. Shallow central disc protrusion L5-S1 impinges the traversing LEFT greater than RIGHT S1 nerve roots with mild central canal stenosis. This extends into t he subarticular recess eccentric to the LEFT slightly progressed compared to pr evious 2. LEFT foraminal protrusion L5-S1 impinges the exiting LEFT L5 nerve root wit h severe LEFT foraminal narrowing is stable compared to previous. Impingement o n the exiting L5 nerve root. Recommend correlation LEFT L5 nerve root symptoms. 3. Mild annular bulging L4-L5 with slight narrowing of the subarticular recess bilaterally is unchanged. Mild bilateral foraminal narrowing at this level. 4. Minimal annular bulging L3-L4 with slight narrowing of the RIGHT greater th an LEFT subarticular recess is unchanged. 5. Mild to moderate facet arthropathy L3-L5. 6. No other significant interval changes.
== END 2022-09-09 12:56 | disposition home or self-care (01) ==
LOC: RAD 13:00
PROVIDERS: PCP Family Medicine; Visit Provider Orthopaedic Surgery
DX: M54.41 Lumbago with sciatica, right side (principal); M54.42 Lumbago with sciatica, left side; M51.37 Other intervertebral disc degeneration, lumbosacral region; G89.29 Other chronic pain; M51.27 Other intervertebral disc displacement, lumbosacral region
CPT/HCPCS: 72148

== ENCOUNTER 2022-09-13 18:23 | Emergency (ER) | payer SELFPAY ==
[2022-09-13 18:24] VITALS: BP 149/98; PULSE 83; RESP 18; TEMP 36.3; O2SAT 98; BMI 23.1
[2022-09-13 20:41] VITALS: BP 139/79; PULSE 51; RESP 16; O2SAT 100
--- NOTE | 2022-09-13 20:54 | W.ED.NAVMDI ---
HPI - Nausea/Vomiting/Diarrhea General: Chief complaint: Nausea/Vomiting/Diarrhea Stated complaint: n/v/d, abdomen pain Time Seen by Provider: 09/13/22 20:37 Source: patient Mode of arrival: ambulatory Limitations: no limitations History of Present Illness: Patient presents to the emergency department today for evaluation treatment of periumbilical abdominal pain, nausea, vomiting, and diarrhea now for the last 48 hours. Patient denies any known fevers. He states he had some Zofran at home and would be able to tolerate approximately half a bottle of water before starting to vomit again. He denies any others at home similarly ill. He also presents as he has not been able to take his chronic pain medication. Patient reports for compression fractures in his spine and states he typically takes oxycodone for his pain. He states his last dose was yesterday at 7 AM. Review of Systems General: Reports: 10 or more systems reviewed and unremarkable except in HPI and below PFSH ED PFSH: Medical History Chronic post-traumatic stress disorder COPD, mild Depression Frequent headaches Gastritis Generalized anxiety disorder Lower urinary tract symptoms (LUTS) Major depressive disorder, recurrent, in full remission with anxious distress Medical marijuana use Patient reports prescribed for his back and appetite Neuropathy Nicotine dependence, other tobacco product, uncomplicated Vaping Peptic ulcer disease Polyuria Psychiatric care Seizures Surgical History H/O oral surgery History of bilateral inguinal hernia repair History of endoscopy Hx of umbilical hernia repair Status post laparoscopic cholecystectomy (02/21/20) Family History Mother History of shingles Grandfather Myocardial infarction CAD (coronary artery disease) Other Cancer Diabetes Denies family history of Anesthesia complication Bleeding disorder Social History Smoking and tobacco status: former smoker Alcohol intake: never Substance/Drug Use: never Household members: spouse Marital status: Current occupational status: employed Physical Exam Const: COMMON NORMALS: no acute distress, patient oriented x3 and alert HENMT: COMMON NORMALS: normocephalic, atraumatic, hearing grossly normal bilaterally and moist oral mucous membranes HEAD & SCALP: normocephalic and atraumatic Eye: COMMON NORMALS: Equal, round and reactive pupils present, EOMs intact bilaterally and conjunctivae normal CONJUNCTIVA: Yes conjunctivae normal PUPIL: Yes Equal, round and reactive pupils present Neck/C-Spine: COMMON NORMALS: full ROM and no JVD Lymph: LYMPHATIC: no lymphadenopathy noted Resp: COMMON NORMALS: normal respiratory effort, No retractions, No use of accessory muscles and clear to auscultation bilaterally AUSCULTATION: clear to auscultation bilaterally Cardio: COMMON NORMALS: no JVD, regular rate and regular rhythm RATE: regular rate RHYTHM: regular rhythm GI: OTHER: Patient with periumbilical and slightly epigastric abdominal pains. : COMMON NORMALS: Yes no CVA tenderness BLADDER/KIDNEY EXAM: Yes no CVA tenderness Back/Pelvis: COMMON NORMALS: no CVA tenderness, no thoracic nor lumbar tenderness and thoraco-lumbar ROM normal Extremity: COMMON NORMALS: normal to inspection, full ROM and capillary refill normal Neuro: COMMON NORMALS: patient oriented x3 SENSORIUM/ORIENTATION: Yes alert Psych: COMMON NORMALS: mental status grossly normal, Normal thought process present, cooperative, normal affect and activity/motor behavior normal THOUGHT PROCESS: Normal thought process present Skin: COMMON NORMALS: no rashes or lesions noted and no wounds GENERAL SKIN EXAM: no rashes or lesions noted Course Vital Signs: Vital signs: Vital Signs Temperature 97.4 F L 09/13/22 18:24 Pulse Rate 63 09/13/22 22:22 Respiratory Rate 16 09/13/22 22:22 Blood Pressure 120/71 09/13/22 22:22 Pulse Oximetry 99 09/13/22 22:22 Oxygen Delivery Me thod Room Air 09/13/22 22:22 MDM - Nausea/Vomiting/Diarrhea Medical Decision Making Patient's lab work is generally unremarkable. He has no elevated white blood cell count which I thought was somewhat surprising given the amount of vomiting patient was reporting. He showed no signs of severe dehydration but we did provide him fluids while he was here in the emergency department. Since he had indicated he had already taken Zofran, we provided IV Reglan. Since patient had no signs of an acute abdomen, we did not proceed on with any imaging. Urinalysis was generally unremarkable though he did test positive for both benzodiazepines and marijuana. Patient did smell of marijuana upon his arrival to the room and after urine drug screen resulted I did ask if he takes marijuana. Patient immediately told me that his symptoms were not related to marijuana use and that he was aware that I attributed his symptoms to marijuana use. I tried to explain to him that treatment for cannabis hyperemesis can be different than that for a standard GI bug and was trying to treat him appropriately. However, patient states this has nothing to do with his cannabis use. At this time, we did discuss treatment for his back pain. Patient's was coming to pick him up and I told him that when his arrived, he could have medicine for pain. I ordered IV morphine and provided him a prescription for Thorazine to help him over the next few days to deal with his nausea and to make sure he is staying well-hydrated. I discussed return precautions with him. Soon after patient's discharge, I was notified by the nursing staff of a situation that occurred at his discharge. From what I understand, patient declined the narcotic pain medication prescribed to him and the nurse indicated he was wanting something different for his pain. He also indicated he wanted to leave with his IV but, was stopped by nursing staff. There was some sort of confrontation and patient was very agitated and upset. They reported he pulled his own IV out and there was quite a bit of blood from his room into the hallway and out into the waiting area. I am not exactly sure why the patient refused his narcotic pain medication as he did not ask for anything specific for his pain during our discussion and evaluation. Differential Diagnosis Likely traveler's diarrhea, gastroenteritis, drug-induced nausea and vomiting and dehydration Lab Data 09/13/22 20:53 09/13/22 20:53 Laboratory Results WBC 8.4 10^3/uL (4.0-10.0) 09/13/22 20:53 RBC 4.46 10^6/uL (4.1-5.3) 09/13/22 20:53 Hgb 13.7 g/dL (11.7-16.6) 09/13/22 20:53 Hct 41.2 % (42.0-52.0) L 09/13/22 20:53 MCV 92.4 fl (80-94) 09/13/22 20:53 MCH 30.7 pg (28.0-34.0) 09/13/22 20:53 MCHC 33.3 g/dL (30.0-36.0) 09/13/22 20:53 RDW 11.7 % (12.1-15.1) L 09/13/22 20:53 Plt Count 198 10^3/cmm (130-400) 09/13/22 20:53 MPV 10.3 fL (7.4-10.4) 09/13/22 20:53 Neut % (Auto) 57.3 % 09/13/22 20:53 Lymph % (Auto) 30.5 % 09/13/22 20:53 [place] % (Auto) 10.5 % 09/13/22 20:53 Eos % (Auto) 0.8 % 09/13/22 20:53 Baso % (Auto) 0.7 % 09/13/22 20:53 Neut # (Auto) 4.79 10^3/uL (1.8-7.7) 09/13/22 20:53 Lymph # (Auto) 2.6 10^3/uL (0.8-4.8) 09/13/22 20:53 [place] # (Auto) 0.9 10^3/uL (0.2-0.9) 09/13/22 20:53 Eos # (Auto) 0.1 10^3/uL (0.0-0.8) 09/13/22 20:53 Baso # (Auto) 0.1 10^3/uL (0.0-0.1) 09/13/22 20:53 Nucleated RBC % (auto) 0 % 09/13/22 20:53 Nucleated RBCs # 0.0 /100WBC 09/13/22 20:53 Sodium 138 mmol/L (136-145) 09/13/22 20:53 Potassium 4.0 mmol/L (3.5-5.1) 09/13/22 20:53 Chloride 101 mmol/L (98-107) 09/13/22 20:53 Carbon Dioxide 27 mmol/L (22-29) 09/13/22 20:53 Anion Gap 14.0 (5-19) 09/13/22 20:53 BUN 12 mg/dL (6-20) 09/13/22 20:53 Creatinine 0.8 mg/dL (0.7-1.2) 05/05/23 20:53 GFR Calculation 108.2 mL/min (90-130) 09/13/22 20:53 Glucose 84 mg/dL (65-115) 09/13/22 20:53 Calculated Osmolality 285 mOsm/kg (285-295) 09/13/22 20:53 Calcium 8.6 mg/dL (8.5-10.5) 09/13/22 20:53 Total Bilirubin 0.2 mg/dL (0.15-1.2) 09/13/22 20:53 AST 22 U/L (0-40) 09/13/22 20:53 ALT 32 U/L (0-41) 09/13/22 20:53 Alkaline Phosphatase 66 U/L (40-130) 09/13/22 20:53 Total Protein 6.8 g/dL (6.6-8.7) 09/13/22 20:53 Albumin 4.5 g/dL (3.5-5.2) 09/13/22 20:53 Globulin 2.3 g/dL (1.3-4.6) 09/13/22 20:53 Lipase 36 U/L (13-60) 09/13/22 20:53 Urine Color Yellow (Yellow) 09/13/22 22:00 Urine Appearance Clear (CLEAR) 09/13/22 22:00 Urine pH 6.5 (5-7) 09/13/22 22:00 Ur Specific [place] 1.000 (1.005-1.030) L 09/13/22 22:00 Urine Protein Neg (Negative) 09/13/22 22:00 Urine Glucose (UA) Norm (Normal) 09/13/22 22:00 Urine Ketones 1+ (Negative) H 09/13/22 22:00 Urine Blood Neg (Negative) 09/13/22 22:00 Urine Nitrate Negative (Negative) 09/13/22 22:00 Urine Bilirubin Neg (Negative) 09/13/22 22:00 Urine Urobilinogen Norm mg/dL (Negative) 09/13/22 22:00 Ur Leukocyte Esterase Negative (Negative) 09/13/22 22:00 Urine Opiates Screen Negative ng/mL (Negative) 09/13/22 22:00 Ur Barbiturates Screen Negative ng/mL (Negative) 09/13/22 22:00 Ur Phencyclidine Scrn Negative ng/mL (Negative) 09/13/22 22:00 Ur Amphetamines Screen Negative ng/mL (Negative) 09/13/22 22:00 U Benzodiazepines Scrn Positive ng/mL (Negative) H 09/13/22 22:00 Urine Cocaine Screen Negative ng/mL (Negative) 09/13/22 22:00 U Marijuana (THC) Screen Positive ng/mL (Negative) H 09/13/22 22:00 Discharge Plan Discharge Patient Disposition: Home Clinical Impression: Nausea and vomiting Condition: Stable Prescriptions: New chlorpromazine 25 mg tablet 25 mg PO Q6H PRN (Reason: nausea and vomiting) Qty: 20 0RF No Action tizanidine 4 mg tablet 4 mg PO TID Protonix 40 mg tablet,delayed release (DR/EC) 40 mg PO BID 90 Days Qty: 180 1RF Saccharomyces boulardii [Daily Probiotic (S. boulardii)] 250 mg capsule 250 mg PO BID hydrocodone-acetaminophen 5-325 mg tablet 1 tab PO Q8H PRN (Reason: pain) 30 Days Qty: 60 0RF Hold Instructions: Resume on 07/16/22. ondansetron 4 mg tablet,disintegrating 4 mg PO Q8H PRN (Reason: nausea and vomiting) Qty: 90 1RF Trelegy Ellipta 100-62.5-25 mcg blister with device 1 inh INHALATION DAILY Qty: 60 11RF tamsulosin 0.4 mg capsule 0.4 mg PO DAILY Qty: 90 3RF lorazepam 0.5 mg tablet 0.5 mg PO TID PRN (Reason: anxiety) 30 Days Qty: 90 1RF albuterol sulfate [ProAir HFA] 90 mcg/actuation HFA aerosol inhaler 2 inh inhalation Q4H PRN (Reason: shortness of breath or wheezing) Qty: 6.7 0RF DOK 100 mg capsule 100 mg PO BID Qty: 20 0RF Discharge Orders: Discharge ED (Routine); Ordered 09/13/22 Ordered By: Lisa Marks Referrals: Andrew Alvarenga MD [Primary Care Provider] - Discharge Diet: Usual diet Discharge Activity: Increase activity as tolerated Patient Instructions: Acute Nausea and Vomiting (ED) Activity Restrictions/Additional Instructions: Lab work today is all stable. You have no signs of any infections, severe dehydration or electrolyte imbalance. We did provide you some fluids here in the emergency department as well as some antinausea medication. We did administer medication to you to help with your chronic pain but, need to return back to taking your prescribed chronic pain medication. We provided you some antinausea medication to take for the next couple of days to help you tolerate fluids and your daily medications better. We do recommend a follow-up appointment with your primary care next week for recheck or, returning to the emergency department for continued or worsening abdominal symptoms. Coding Level of Care Code ED Hospice Spiritual Care Coordinator for Alexis Gonzalez
[2022-09-13 21:10] LABS: Basophils # 0.1 10^3/uL (0.0-0.1); Basophils % 0.7 %; Eosinophils # 0.1 10^3/uL (0.0-0.8); Eosinophils % 0.8 %; Hematocrit 41.2 % (42.0-52.0); Hemoglobin 13.7 g/dL (11.7-16.6); Lymphocytes # 2.6 10^3/uL (0.8-4.8); Lymphocytes % 30.5 %; Mean Corpuscular HGB Conc 33.3 g/dL (30.0-36.0); Mean Corpuscular Hemoglobin 30.7 pg (28.0-34.0); Mean Corpuscular Volume 92.4 fl (80-94); Mean Platelet Volume 10.3 fL (7.4-10.4); Monocytes # 0.9 10^3/uL (0.2-0.9); Monocytes % 10.5 %; Neutrophils # 4.79 10^3/uL (1.8-7.7); Neutrophils % 57.3 %; Nucleated Red Blood Cells % 0 %; Platelet Count 198 10^3/cmm (130-400); Red Blood Count 4.46 10^6/uL (4.1-5.3); Red Cell Distribution Width 11.7 % (12.1-15.1); White Blood Count 8.4 10^3/uL (4.0-10.0)
[2022-09-13 21:25] LABS: Alanine Aminotransferase 32 U/L (0-41); Albumin Level 4.5 g/dL (3.5-5.2); Alkaline Phosphatase 66 U/L (40-130); Aspartate Amino Transferase 22 U/L (0-40); Blood Urea Nitrogen 12 mg/dL (6-20); Calcium 8.6 mg/dL (8.5-10.5); Carbon Dioxide 27 mmol/L (22-29); Chloride 101 mmol/L (98-107); Globulin 2.3 g/dL (1.3-4.6); Glomerular Filtration Rate 108.2 mL/min (90-130); Glucose 84 mg/dL (65-115); Lipase 36 U/L (13-60); Osmolality Calculated 285 mOsm/kg (285-295); Sodium 138 mmol/L (136-145); Total Bilirubin 0.2 mg/dL (0.15-1.2); Total Protein 6.8 g/dL (6.6-8.7)
[2022-09-13] MEDS: sodium chloride 0.9% 1,000 ML 999 ML IV ×2 (21:51→22:22)
[2022-09-13] MEDS: metoclopramide 5 mg/mL SDV 2 mL 10 MG IVP (21:51)
[2022-09-13 22:22] VITALS: BP 120/71; PULSE 63; RESP 16; O2SAT 99
[2022-09-13 22:33] LABS: Add Urine Microscopic? NO; Charge for UA Resulting for Rev
[2022-09-13 22:36] LABS: Bilirubin Urine Neg (Negative); Blood Urine Neg (Negative); Glucose Urine UA Norm (Normal); Ketones Urine 1+ (Negative); Leukocyte Esterase Urine Negative (Negative); Nitrate Urine Negative (Negative); Protein Urine Neg (Negative); Urine Appearance Clear (CLEAR); Urine Color Yellow (Yellow); Urobilinogen Urine Norm (Negative); pH Urine 6.5 (5-7)
[2022-09-13 22:47] LABS: Amphetamines Screen Urine Negative (Negative); Barbiturates Screen Urine Negative (Negative); Benzodiazepines Screen Urine Positive (Negative); Cocaine Screen Urine Negative (Negative); Opiate Screen Urine Negative (Negative); PCP Screen Urine Negative (Negative); THC Screen Urine Positive (Negative)
[2022-09-13] MEDS: dexamethasone 10 mg/mL INJ IVP (23:12)
--- NOTE | 2022-09-14 | PC.NURSE ---
Staff nurse brought to attention of other staff that pt was refusing to leave with discharge information packet. Pt attempted to leave with IV still intact in arm. Staff nurse ART Marquez having established a rapport with the patient previously talked to pt about discharge and removing the IV. Pt then said he didn't want any meds and to get this fucking thing out of me. . Pt then proceeded to remove his own IV. Staff nurse attempted to stop the bleeding, but patient would only allow nurse to apply a simple bandaid. Pt then yelled at staff nurse that I didn't come here for just a damn steroid shot, I am in pain and want ... . Pt was bleeding into floor, attempted to stop bleeding. Pt refused and walked out of the ED and covered parts of the ED waiting area with blood whilst yelling at staff, on lookers, and spouse. Pt spouse signed paperwork and was given the prescription to be filled. Pt spouse was also given a coban and 4x4 to stop the bleeding if pt would allow her.
[2022-09-14 01:06] VITALS: BP 120/71; PULSE 63; RESP 16; TEMP 36.3; O2SAT 99
== END 2022-09-14 00:30 | disposition home or self-care (01) ==
PROVIDERS: Emergency Provider Physician Assistant; PCP Family Medicine
DX: R11.2 Nausea with vomiting, unspecified (principal); Z87.891 Personal history of nicotine dependence; J44.9 Chronic obstructive pulmonary disease, unspecified
CPT/HCPCS: 80053; 80306; 81003; 83690; 85025; 96374; 96375; 99284; J1100; J2765; J7030

== ENCOUNTER 2022-09-20 11:36 | Emergency (ER) | payer SELFPAY ==
[2022-09-20 11:38] VITALS: BMI 25.7
--- NOTE | 2022-09-20 11:45 | CT_ITS ---
WS: [id number] CT HEAD TECHNIQUE: Noncontrast CT of the head obtained from the skullbase to the vertex. CLINICAL INFORMATION: fall closed head injury COMPARISON: 2015 DLP: 1137.[address] scans at [facility] use at least one of these dose optimization techniques: automated e xposure control; mA and/or kV adjustment per patient size (includes targeted exams where dose is matc hed to clinical indication); or iterative reconstruction. FINDINGS: No evidence of intracranial hemorrhage or mass effect. Ventricular system and basal cisterns are bhagat nt. No extra-axial fluid collections. No evidence of mass or mass effect. Normal beltre-white different iation. Paranasal sinuses and mastoid air cells are well aerated. .Normal visualized soft tissues. CT/CT head wo con* [id number] IMPRESSION: 1. No evidence of intracranial hemorrhage or mass effect. 2. No acute intracranial findings.
[2022-09-20 11:47] VITALS: BP 134/63; PULSE 59; RESP 16; TEMP 36.3; O2SAT 100
--- NOTE | 2022-09-20 11:50 | XR_ITS ---
WS: [id number] Cervical spine, 4 views, 09/20/2022 Clinical Data: fall Comparison: Cervical spine, 09/03/2022 Findings: No compression fractures are seen. The disc heights are normal. There are minimal spurs of the anterior aspects of C5 and C6. There is no prevertebral soft tissue swelling. The odontoid is unr emarkable. The soft tissues of the neck and the lung apices are normal. XR/XR cervical spine 3V* [id number] Impression: Minimal osteoarthritis of C5-C6.
--- NOTE | 2022-09-20 11:55 | ED_ITS ---
HPI - Fall General: Chief Complaint: Fall Stated Complaint: fall hitting neck and head Time Seen by Provider: 09/20/22 11:44 Source: patient Mode of arrival: ambulatory History of Present Illness: 37-year-old male presents emergency room complaining of persistent nausea vomiting for about the last 10 or 11 days. Today he fell difficult for him to explain what exactly happened he did hit the back of his head. He states he has a little bit of blurry vision as well he is not on any anticoagulants. He has some compression fractures in the thoracic spine at T4-[address] done last April they were unchanged from November 2021. There is also some an accompanying disc space narrowing he does not particularly have back pain at this time. Onset (ago): hour(s) Fall from: standing Place fall occurred: home Loss of consciousness: Unsure Prolonged down time: no Symptoms prior to fall: none Context: tripped/slipped Location of injury: head Associated symptoms-after fall: Reports headache(s); Denies abdominal pain, chest pain, confusion, difficulty walking, hematuria, lightheadedness, neck pain, numbness, short of breath, vertigo or weakness Review of Systems Const: Denies: fever(s), chills, body aches, change in appetite, fatigue or malaise ENMT: Denies: throat pain, ear or mastoid pain, nasal discharge or nasal congestion Card: Denies: chest pain or lightheadedness Resp: Denies: dyspnea, productive cough or non-productive cough GI: Denies: abdominal pain : Denies: hematuria Musc: Reports: back pain; Denies: neck pain Skin/Breast: Denies: rash or pruritus Neuro: Reports: headache(s); Denies: difficulty walking, vertigo or confusion PFS ED PFSH: Medical History Chronic post-traumatic stress disorder COPD, mild Depression Frequent headaches Gastritis Generalized anxiety disorder Lower urinary tract symptoms (LUTS) Major depressive disorder, recurrent, in full remission with anxious distress Medical marijuana use Patient reports prescribed for his back and appetite Neuropathy Nicotine dependence, other tobacco product, uncomplicated Vaping Peptic ulcer disease Polyuria Psychiatric care Seizures Surgical History H/O oral surgery History of bilateral inguinal hernia repair History of endoscopy Hx of umbilical hernia repair Status post laparoscopic cholecystectomy (02/21/20) Family History Mother History of shingles Grandfather Myocardial infarction CAD (coronary artery disease) Other Cancer Diabetes Denies family history of Anesthesia complication Bleeding disorder Social History Smoking and tobacco status: former smoker Alcohol intake: never Substance/Drug Use: never Household members: spouse Marital status: Current occupational status: employed Physical Exam Const: COMMON NORMALS: no acute distress GENERAL APPEARANCE: cooperative and comfortable ORIENTATION/CONSCIOUSNESS: Yes awake, Yes oriented to person, Yes oriented to place and Yes oriented to time HENMT: COMMON NORMALS: normocephalic, atraumatic, hearing grossly normal bilaterally, external ears normal, EAC's normal, TM's normal bilaterally and Normal nasal mucous membranes and turbinates present HEAD & SCALP: normocephalic and atraumatic NOSE: Normal nasal mucous membranes and turbinates present EXTERNAL EAR: Yes external ears normal EXTERNAL AUDITORY CANAL: EAC's normal TYMPANIC MEMBRANE: TM's normal bilaterally Eye: COMMON NORMALS: Equal, round and reactive pupils present, EOMs intact jerrod aterally, conjunctivae normal and no scleral icterus CONJUNCTIVA: Yes con junctivae normal PUPIL: Yes Equal, round and reactive pupils present Neck/C-Spine: COMMON NORMALS: full ROM, no lymphadenopathy, supple and no JVD Lymph: LYMPHATIC: no lymphadenopathy noted and no lymphedema noted Resp: COMMON NORMALS: normal respiratory effort, No retractions, No use of accessory muscles and clear to auscultation bilaterally AUSCULTATION: clear to auscultation bilaterally Cardio: COMMON NORMALS: no JVD, regular rate, regular rhythm and No murmurs present (Cardio) RATE: regular rate RHYTHM: regular rhythm GI: COMMON NORMALS: Soft to palpation and No hepatosplenomegaly present AUSCULTATION: Yes normoactive bowel sounds PALPATION: Yes Soft to palpation, No Tenderness to palpation present (GI), No Guarding due to palpation present (GI) and Yes No hepatosplenomegaly present Extremity: COMMON NORMALS: normal to inspection, capillary refill normal, no clubbing, cyanosis or edema, no calf tenderness and no pedal edema Neuro: SENSORIUM/ORIENTATION: Yes oriented to person, Yes oriented to place and Yes oriented to time OTHER: Neurological intact no focal neurologic deficits noted Skin: COMMON NORMALS: no rashes or lesions noted GENERAL SKIN EXAM: no rashes or lesions noted Course Vital Signs: Vital signs: Vital Signs Temperature 97.4 F L 09/20/22 11:47 Pulse Rate 59 L 09/20/22 11:47 Respiratory Rate 16 09/20/22 11:47 Blood Pressure 134/63 09/20/22 11:47 Pulse Oximetry 100 09/20/22 11:47 Oxygen Delivery Me thod Room Air 09/20/22 11:47 MDM - Fall Medical Decision Making CT head x-rays of the cervical spine are negative nausea is improved with fluids and antiemetics will discharge home with promethazine to use as needed liquid d iet and follow-up with primary care doctor if symptoms persist he may benefit from endoscopy and/or gastric emptying study. This is evidently been going on for an extended period of time. Laboratory test reviewed with the patient. Medical Records I reviewed the patient's medical records. Lab Data I reviewed the patient's lab results. 09/20/22 11:55 09/20/22 11:[address] 09/20/22 11:45 IMPRESSION: 1. No evidence of intracranial hemorrhage or mass effect. 2. No acute intracranial findings. Cervical Spine X-Ray 09/20/22 11:50 Impression: Minimal osteoarthritis of C5-C6. Laboratory Results WBC 16.0 10^3/uL (4.0-10.0) H 09/20/22 11:55 RBC 4.92 10^6/uL (4.1-5.3) 09/20/22 11:55 Hgb 15.1 g/dL (11.7-16.6) 09/20/22 11:55 Hct 44.8 % (42.0-52.0) 09/20/22 11:55 MCV 91.1 fl (80-94) 09/20/22 11:55 MCH 30.7 pg (28.0-34.0) 09/20/22 11:55 MCHC 33.7 g/dL (30.0-36.0) 09/20/22 11:55 RDW 11.9 % (12.1-15.1) L 09/20/22 11:55 Plt Count 285 10^3/cmm (130-400) 09/20/22 11:55 MPV 10.5 fL (7.4-10.4) H 09/20/22 11:55 Neut % (Auto) 84.1 % 09/20/22 11:55 Lymph % (Auto) 10.0 % 09/20/22 11:55 [place] % (Auto) 4.9 % 09/20/22 11:55 Eos % (Auto) 0.3 % 09/20/22 11:55 Baso % (Auto) 0.3 % 09/20/22 11:55 Neut # (Auto) 13.44 10^3/uL (1.8-7.7) H 09/20/22 11:55 Lymph # (Auto) 1.6 10^3/uL (0.8-4.8) 09/20/22 11:55 [place] # (Auto) 0.8 10^3/uL (0.2-0.9) 09/20/22 11:55 Eos # (Auto) 0.0 10^3/uL (0.0-0.8) 09/20/22 11:55 Baso # (Auto) 0.1 10^3/uL (0.0-0.1) 09/20/22 11:55 Nucleated RBC % (auto) 0 % 09/20/22 11:55 Nucleated RBCs # 0.0 /100WBC 09/20/22 11:55 Sodium 143 mmol/L (136-145) 09/20/22 11:55 Potassium 3.6 mmol/L (3.5-5.1) 09/20/22 11:55 Chloride 105 mmol/L (98-107) 09/20/22 11:55 Carbon Dioxide 24 mmol/L (22-29) 09/20/22 11:55 Anion Gap 17.6 (5-19) 09/20/22 11:55 BUN 8 mg/dL (6-20) 09/20/22 11:55 Creatinine 0.7 mg/dL (0.7-1.2) 09/20/22 11:55 GFR Calculation 126.2 mL/min (90-130) 09/20/22 11:55 Glucose 110 mg/dL (65-115) 09/20/22 11:55 Calculated Osmolality 295 mOsm/kg (285-295) 09/20/22 11:55 Calcium 9.2 mg/dL (8.5-10.5) 09/20/22 11:55 Discharge Plan Discharge Patient Disposition: Home Clinical Impression: Closed head injury, Nausea & vomiting Condition: Stable Prescriptions: New promethazine 25 mg tablet 25 mg PO Q6H PRN (Reason: nausea and vomiting) Qty: 20 0RF No Action Protonix 40 mg tablet,delayed release (DR/EC) 40 mg PO BID 90 Days Qty: 180 1RF Saccharomyces boulardii [Daily Probiotic (S. boulardii)] 250 mg capsule 250 mg PO BID lorazepam 0.5 mg tablet 0.5 mg PO TID PRN (Reason: anxiety) 30 Days Qty: 90 1RF albuterol sulfate [ProAir HFA] 90 mcg/actuation HFA aerosol inhaler 2 inh inhalation Q4H PRN (Reason: shortness of breath or wheezing) Qty: 6.7 0RF Soma 350 mg Tablet 350 mg PO QID ondansetron 8 mg tablet,disintegrating 8 mg PO Q8H PRN (Reason: Nausea And Vomiting) Percocet 10-325 mg Tablet 1 tab PO 5XD mirtazapine 15 mg tablet 15 mg PO BEDTIME PRN (Reason: Sleep) potassium gluconate 595 mg (99 mg) Tablet 595 mg PO DAILY tamsulosin 0.4 mg capsule 0.4 mg PO BEDTIME Trelegy Ellipta 100-62.5-25 mcg blister with device 1 inh INHALATION QAM Discharge Orders: Discharge ED (Routine); Ordered 09/20/22 Ordered By: Sampson Lopez Referrals: Andrew Alvarenga MD [Primary Care Provider] - Discharge Diet: Full LIquid Discharge Activity: Increase activity as tolerated Patient Instructions: Opioid Safety, Pain Management Activity Restrictions/Additional Instructions: You were seen today after a fall with and recurrent nausea and vomiting. Laboratory test reviewed your electrolytes were normal CT of the head and x-rays of the neck were normal. Recommend use your promethazine as needed for nausea and vomiting. We will discharge you home follow-up with your primary care doctor symptoms persist you may need further evaluation. Coding Level of Care Code ED [employer] for Kathig Carlos
[2022-09-20] MEDS: promethazine 25 mg/mL SDV 1 mL IM (12:04)
[2022-09-20 12:07] LABS: Basophils # 0.1 10^3/uL (0.0-0.1); Basophils % 0.3 %; Eosinophils % 0.3 %; Hematocrit 44.8 % (42.0-52.0); Hemoglobin 15.1 g/dL (11.7-16.6); Lymphocytes # 1.6 10^3/uL (0.8-4.8); Mean Corpuscular HGB Conc 33.7 g/dL (30.0-36.0); Mean Corpuscular Hemoglobin 30.7 pg (28.0-34.0); Mean Corpuscular Volume 91.1 fl (80-94); Mean Platelet Volume 10.5 fL (7.4-10.4); Monocytes # 0.8 10^3/uL (0.2-0.9); Monocytes % 4.9 %; Neutrophils # 13.44 10^3/uL (1.8-7.7); Neutrophils % 84.1 %; Nucleated Red Blood Cells % 0 %; Platelet Count 285 10^3/cmm (130-400); Red Blood Count 4.92 10^6/uL (4.1-5.3); Red Cell Distribution Width 11.9 % (12.1-15.1)
[2022-09-20 12:34] LABS: Anion Gap 17.6 (5-19); Blood Urea Nitrogen 8 mg/dL (6-20); Calcium 9.2 mg/dL (8.5-10.5); Carbon Dioxide 24 mmol/L (22-29); Chloride 105 mmol/L (98-107); Glomerular Filtration Rate 126.2 mL/min (90-130); Glucose 110 mg/dL (65-115); Osmolality Calculated 295 mOsm/kg (285-295); Potassium 3.6 mmol/L (3.5-5.1); Sodium 143 mmol/L (136-145)
--- NOTE | 2022-09-20 12:54 | PC.PHAR ---
pt states he takes care of his own medications-pt states he doesnt take chlopromazine 25mg q6h prn n/v rx written 09/13/22 from [facility]-pt states only taking lorazepam 0.5mg tid prn filled 09/05/22 30d/s-pt states not taking clonazepam 0.5mg take 0.25mg daily prn filled 08/28/22 30d/s-pt states he fills his percocet 10-325 and soma 350 at [facility]-pt states [facility] mails his trelegy to him-
[2022-09-20 14:01] VITALS: BP 134/63; PULSE 59; RESP 16; TEMP 36.3; O2SAT 100
== END 2022-09-20 14:03 | disposition home or self-care (01) ==
PROVIDERS: Emergency Provider Family Medicine; PCP Family Medicine
DX: S09.8XXA Other specified injuries of head, initial encounter (principal); R11.2 Nausea with vomiting, unspecified; Z87.891 Personal history of nicotine dependence; J44.9 Chronic obstructive pulmonary disease, unspecified; W19.XXXA Unspecified fall, initial encounter
CPT/HCPCS: 70450; 72040; 80048; 85025; 96372; 99285; J2550

== ENCOUNTER → 2022-09-24 12:02 | Outpatient (BNVA) | payer SELFPAY | PROVIDERS: PCP Family Medicine; Visit Provider Family Medicine | DX: R11.2 Nausea with vomiting, unspecified (principal) | CPT/HCPCS: 82175; 83655; 83825; 85025; 86140 ==

== ENCOUNTER 2022-09-30 08:01 | Outpatient (CLI) | payer SELFPAY ==
--- NOTE | 2022-09-30 08:00 | MR_ITS ---
WS: [id number] MRI CERVICAL SPINE NONCONTRAST HISTORY: Cervical pain after injury one half years ago. COMPARISON: None available. Technique: Multiplanar, multisequence noncontrast imaging of the cervical spine. Very slight increase in the cervical lordosis. Vertebral bodies are normally aligned. Slight narrowin g and desiccation of the disc spaces. There is mild anterior wedging of T3 by 10% which was also pres ent on the CT of 06/18/2022. Signal within the cervical cord is normal. Visualized posterior fossa is unremarkable. Craniocervical junction, C1 and C2 relationship, odontoid process and soft tissues are normal. There is a small amount of marrow edema in the LEFT lateral C7 and T1 articular facets. Also edema is noted within the LEFT T1 transverse process. C2-C3: Normal. C3-C4: Mild osteophytic ridging. There is a very shallow central disc protrusion seen best on the sag ittal imaging. No stenosis. Mild facet arthritis. C4-C5: Normal. C5-C6: Mild annular disc bulging with mild osteophytic ridging. Mild facet arthritis. C6-C7: Mild annular disc bulge with a small central disc protrusion minimally contacting the ventral cord without displacement. Mild facet arthritis. C7-T1: Normal. Paraspinal soft tissue are normal. MR/MR cervical spin wo con* [id number] IMPRESSION: 1. No high-grade central stenosis or large disc protrusions. 2. Small central disc protrusion at C6-7 minimally contacting the ventral cord without displacement. 3. Very shallow central disc protrusion at C3-4. 4. Remote T3 10 percent compression fracture. 5. Small amount of marrow edema in the articular facets of C7 and T1 on the LE FT and the LEFT T1 transverse process. May be reactive. Correlate for possible instability.
--- NOTE | 2022-09-30 08:45 | MR_ITS ---
WS: [id number] MRI LEFT SHOULDER HISTORY: PAIN COMPARISON: None available. TECHNIQUE: Multiplanar sequences of the shoulder joint are submitted. Very minimal hypertrophic bone formation at the AC joint. Small osteophyte with minimal encroachment upon the supraspinatus. Minimal subacromial bursal distention. There is very slight mild subacromial impingement secondary to osteophyte along the distal undersurface of the acromion. No os acromion. Bi ceps tendon is normally positioned within the bicipital groove. There is a very small amount of incre ased T2 signal within the central biceps tendon at the bicipital groove consistent with a split tear. Very slight high riding of the humeral head. No fractures. Loss of the normal cortex with cortical ir regularity involving the inferior glenoid. No muscle atrophy or edema. Mild tendinopathy distal supra spinatus tendon. No rotator cuff tear. Small subchondral cyst in the humeral head. There is a small amount of fluid in the rotator cuff interval. No labral tears are identified. MR/MR shoulder LT wo con* [id number] IMPRESSION: 1. No rotator cuff muscle tear. 2. Mild subacromial impingement. 3. Loss of the normal cortical surface along the inferior glenoid probably fro m arthritis. 4. Split tear biceps tendon in the bicipital groove.
== END 2022-09-30 08:02 | disposition home or self-care (01) ==
PROVIDERS: PCP Family Medicine; Visit Provider Physician Assistant
DX: M50.21 Other cervical disc displacement, high cervical region (principal); M25.512 Pain in left shoulder; S46.212A Strain of muscle, fascia and tendon of other parts of biceps, left arm, initial encounter; X58.XXXA Exposure to other specified factors, initial encounter
CPT/HCPCS: 72141; 73221

== ENCOUNTER 2023-01-01 10:48 | Emergency (ER) | payer SELFPAY ==
[2023-01-01] VITALS (8 sets, daily range): BP systolic 115–163; BP diastolic 56–86; PULSE 51–84; RESP 15–18; TEMP 36.4; O2SAT 96–100
--- NOTE | 2023-01-01 13:02 | W.ED.NAVMDI ---
HPI - Nausea/Vomiting/Diarrhea General: Chief complaint: Nausea/Vomiting/Diarrhea Stated complaint: n/v Time Seen by Provider: 01/01/23 12:14 History of Present Illness: Patient presents to the ER with complaints of nausea vomiting diarrhea and upper abdominal pain. Patient thinks he may have ate some bad food yesterday. This all started yesterday afternoon, patient was fine yesterday morning. States his pain is high up in his upper abdomen feels like a raccoon is trying to climb out of him. Patient is on chronic pain medicine for his back and was unable to keep his pain medicine down today. Patient is never had any nausea vomiting diarrhea episode like this before. Has not tried anything [id number] to relieve his symptoms. Review of Systems General: Reports: 10 or more systems reviewed and unremarkable except in HPI and below PFSH ED PFSH: Medical History Chronic post-traumatic stress disorder COPD, mild Depression Frequent headaches Gastritis Generalized anxiety disorder Lower urinary tract symptoms (LUTS) Major depressive disorder, recurrent, in full remission with anxious distress Medical marijuana use Patient reports prescribed for his back and appetite Neuropathy Nicotine dependence, other tobacco product, uncomplicated Vaping Peptic ulcer disease Polyuria Psychiatric care Seizures Surgical History H/O oral surgery History of bilateral inguinal hernia repair History of endoscopy Hx of umbilical hernia repair Status post laparoscopic cholecystectomy (02/21/20) Family History Mother History of shingles Grandfather Myocardial infarction CAD (coronary artery disease) Other Cancer Diabetes Denies family history of Anesthesia complication Bleeding disorder Social History Smoking and tobacco status: former smoker Alcohol intake: never Substance/Drug Use: never Household members: spouse Marital status: Current occupational status: employed Physical Exam Const: COMMON NORMALS: no acute distress, average body habitus, patient oriented x3, no limitations, healthy appearing, alert and well nourished HENMT: COMMON NORMALS: normocephalic, atraumatic, hearing grossly normal bilaterally, external ears normal, Normal external nose present and moist oral mucous membranes HEAD & SCALP: normocephalic and atraumatic NOSE: Normal external nose present EXTERNAL EAR: Yes external ears normal Eye: COMMON NORMALS: Equal, round and reactive pupils present, EOMs intact bilaterally, conjunctivae normal and no scleral icterus CONJUNCTIVA: Yes conjunctivae normal PUPIL: Yes Equal, round and reactive pupils present Neck/C-Spine: COMMON NORMALS: full ROM, no lymphadenopathy, supple, no meningeal signs, no JVD and Thyroid normal THYROID: Thyroid normal Chest: COMMONS NORMALS: normal inspection of the chest and normal palpation of entire chest wall Resp: COMMON NORMALS: normal respiratory effort, No retractions, No use of accessory muscles and clear to auscultation bilaterally AUSCULTATION: clear to auscultation bilaterally Cardio: COMMON NORMALS: no JVD, regular rate, regular rhythm, S1 normal heart sound present, S2 normal heart sound present, No gallops present (Cardio), No clicks present (Cardio), No murmurs present (Cardio) and No rub (Cardio) RATE: regular rate RHYTHM: regular rhythm HEART SOUNDS: S1 normal heart sound present and S2 normal heart sound present GI: COMMON NORMALS: Normal to inspection, nondistended, normoactive bowel sounds present, Soft to palpation, No hepatosplenomegaly present, no masses and no bruits; negative for non-tender (Mildly tender to palpate diffusely) PALPATION: Yes Soft to palpation and Yes No hepatosplenomegaly present : COMMON NORMALS: Yes no CVA tenderness BLADDER/KIDNEY EXAM: Yes no CVA tenderness Back/Pelvis: COMMON NORMALS: no CVA tenderness Neuro: COMMON NORMALS: patient oriented x3 SENSORIUM/ORIENTATION: Yes alert MENINGEAL SIGNS: Yes no meningeal signs Course Vital Signs: Vital signs: Vital Signs Temperature 97.6 F 01/01/23 11:17 Pulse Rate 76 01/01/23 16:00 Respiratory Rate 17 01/01/23 13:30 Blood Pressure 128/77 01/01/23 16:00 Pulse Oximetry 98 01/01/23 16:00 Oxygen Delivery Me thod Room Air 01/01/23 16:00 MDM - Nausea/Vomiting/Diarrhea Medical Decision Making Presents to the ER with nausea vomiting diarrhea. Physical exam was performed lab work was obtained elevated white count of 15.7 otherwise unremarkable. Patient was given 1 L normal saline and 4 mg of morphine 4 mg Zofran. Patient decided he did not want to stay and for urine test and wanted to leave. Patient stated he was feeling better. Will be discharged home Differential Diagnosis Likely food poisoning and gastroenteritis; Unlikely traveler's diarrhea, clostridium difficile infection, drug-induced nausea and vomiting or dehydration Medical Records I reviewed the patient's medical records. Lab Data I reviewed the patient's lab results. 01/01/23 13:00 01/01/23 13:00 Laboratory Results WBC 15.74 10^3/uL (3.29-11.43) H 01/01/23 13:00 RBC 5.05 10^6/uL (3.85-5.65) 01/01/23 13:00 Hgb 16.20 g/dL (11.27-16.99) 01/01/23 13:00 Hct 46.1 % (37-53) 01/01/23 13:00 MCV 91.3 fl (82-101) 01/01/23 13:00 MCH 32.1 pg (27-33) 01/01/23 13:00 MCHC 35.1 g/dL (30-55) 01/01/23 13:00 RDW 12.3 % (12.1-15.1) 01/01/23 13:00 Plt Count 259 10^3/cmm (157-399) 01/01/23 13:00 MPV 9.5 fL (7.4-10.4) 01/01/23 13:00 Neut % (Auto) 89.2 % 01/01/23 13:00 Lymph % (Auto) 6.0 % 01/01/23 13:00 [place] % (Auto) 4.1 % 01/01/23 13:00 Eos % (Auto) 0.0 % 01/01/23 13:00 Baso % (Auto) 0.2 % 01/01/23 13:00 Neut # (Auto) 14.05 10^3/uL (1.8-7.7) H 01/01/23 13:00 Lymph # (Auto) 0.9 10^3/uL (0.8-4.8) 01/01/23 13:00 [place] # (Auto) 0.6 10^3/uL (0.2-0.9) 01/01/23 13:00 Eos # (Auto) 0.0 10^3/uL (0.0-0.8) 01/01/23 13:00 Baso # (Auto) 0.0 10^3/uL (0.0-0.1) 01/01/23 13:00 Nucleated RBC % (auto) 0 % 01/01/23 13:00 Nucleated RBCs # 0.0 /100WBC 01/01/23 13:00 Sodium 141 mmol/L (136-145) 01/01/23 13:00 Potassium 4.3 mmol/L (3.5-5.1) 01/01/23 13:00 Chloride 106 mmol/L (98-107) 01/01/23 13:00 Carbon Dioxide 24 mmol/L (22-29) 01/01/23 13:00 Anion Gap 15.3 (5-19) 01/01/23 13:00 BUN 8 mg/dL (6-20) 01/01/23 13:00 Creatinine 0.7 mg/dL (0.7-1.2) 01/01/23 13:00 GFR Calculation 126.2 mL/min (90-130) 01/01/23 13:00 Glucose 126 mg/dL (65-115) H 01/01/23 13:00 Calculated Osmolality 292 mOsm/kg (285-295) 01/01/23 13:00 Calcium 9.7 mg/dL (8.5-10.5) 01/01/23 13:00 Magnesium 2.2 mg/dL (1.7-2.3) 01/01/23 13:00 Total Bilirubin 0.5 mg/dL (0.15-1.2) 01/01/23 13:00 AST 22 U/L (0-40) 01/01/23 13:00 ALT 13 U/L (0-41) 01/01/23 13:00 Alkaline Phosphatase 90 U/L (40-130) 01/01/23 13:00 Total Protein 8.2 g/dL (6.6-8.7) 01/01/23 13:00 Albumin 5.1 g/dL (3.5-5.2) 01/01/23 13:00 Globulin 3.1 g/dL (1.3-4.6) 01/01/23 13:00 Lipase 24 U/L (13-60) 01/01/23 13:00 Discharge Plan Discharge Patient Disposition: Home Clinical Impression: Gastroenteritis Condition: Stable Prescriptions: No Action Protonix 40 mg tablet,delayed release (DR/EC) 40 mg PO BID 90 Days Qty: 180 1RF lorazepam 0.5 mg tablet 0.5 mg PO TID PRN (Reason: anxiety) 30 Days Qty: 90 1RF mirtazapine 15 mg tablet 15 mg PO BEDTIME PRN (Reason: Sleep) Qty: 30 3RF Saccharomyces boulardii [Daily Probiotic (S. boulardii)] 250 mg capsule 250 mg PO BID promethazine 25 mg tablet 25 mg PO Q6H PRN (Reason: nausea and vomiting) Qty: 20 11RF albuterol sulfate [ProAir HFA] 90 mcg/actuation HFA aerosol inhaler 2 inh inhalation Q4H PRN (Reason: shortness of breath or wheezing) Qty: 6.7 0RF carisoprodol [Soma] 350 mg Tablet 350 mg PO QID ondansetron 8 mg tablet,disintegrating 8 mg PO Q8H PRN (Reason: Nausea And Vomiting) oxycodone-acetaminophen [Percocet] 10-325 mg Tablet 1 tab PO 6XD potassium gluconate 595 mg (99 mg) Tablet 595 mg PO DAILY tamsulosin 0.4 mg capsule 0.4 mg PO BEDTIME Trelegy Ellipta 100-62.5-25 mcg blister with device 1 inh INHALATION QAM zonisamide 100 mg capsule 100 mg PO TID Discharge Orders: Discharge ED (Routine); Ordered 01/01/23 Ordered By: Ye Lake Referrals: Andrew Alvarenga MD [Primary Care Provider] - 1 week Patient Instructions: Gastroenteritis (ED) Coding Level of Care Code ED [employer] for Alexis Gonzalez
[2023-01-01] MEDS: sodium chloride 0.9% 1,000 ML 999 ML IV ×2 (13:03→15:43)
[2023-01-01] MEDS: morphine 4 mg/mL SDV 1 mL IVP (13:05)
[2023-01-01] MEDS: ondansetron 2 mg/ML SDV 2 mL 4 MG IVP (13:05)
[2023-01-01 13:11] LABS: Basophils % 0.2 %; Hematocrit 46.1 % (37-53); Lymphocytes # 0.9 10^3/uL (0.8-4.8); Mean Corpuscular HGB Conc 35.1 g/dL (30-55); Mean Corpuscular Hemoglobin 32.1 pg (27-33); Mean Corpuscular Volume 91.3 fl (82-101); Mean Platelet Volume 9.5 fL (7.4-10.4); Monocytes # 0.6 10^3/uL (0.2-0.9); Monocytes % 4.1 %; Neutrophils # 14.05 10^3/uL (1.8-7.7); Neutrophils % 89.2 %; Nucleated Red Blood Cells % 0 %; Platelet Count 259 10^3/cmm (157-399); Red Blood Count 5.05 10^6/uL (3.85-5.65); Red Cell Distribution Width 12.3 % (12.1-15.1); White Blood Count 15.74 10^3/uL (3.29-11.43)
[2023-01-01 13:24] LABS: Alanine Aminotransferase 13 U/L (0-41); Albumin Level 5.1 g/dL (3.5-5.2); Alkaline Phosphatase 90 U/L (40-130); Anion Gap 15.3 (5-19); Aspartate Amino Transferase 22 U/L (0-40); Blood Urea Nitrogen 8 mg/dL (6-20); Calcium 9.7 mg/dL (8.5-10.5); Carbon Dioxide 24 mmol/L (22-29); Chloride 106 mmol/L (98-107); Globulin 3.1 g/dL (1.3-4.6); Glomerular Filtration Rate 126.2 mL/min (90-130); Glucose 126 mg/dL (65-115); Lipase 24 U/L (13-60); Magnesium 2.2 mg/dL (1.7-2.3); Osmolality Calculated 292 mOsm/kg (285-295); Potassium 4.3 mmol/L (3.5-5.1); Sodium 141 mmol/L (136-145); Total Bilirubin 0.5 mg/dL (0.15-1.2); Total Protein 8.2 g/dL (6.6-8.7)
[2023-01-01] MEDS: aluminum-mag hydrox-simethicon 30 ML, sucralfate oral liq 1 GM PO (13:41)
== END 2023-01-01 17:39 | disposition home or self-care (01) ==
PROVIDERS: Emergency Provider Emergency Medicine; PCP Family Medicine
DX: K52.9 Noninfective gastroenteritis and colitis, unspecified (principal); Z87.891 Personal history of nicotine dependence
CPT/HCPCS: 80053; 83690; 83735; 85025; 96361; 96374; 96375; 99284; J2270; J2405; J7030

== ENCOUNTER → 2023-02-12 10:01 | Outpatient (BNVA) | payer SELFPAY | PROVIDERS: PCP Family Medicine; Visit Provider Family Medicine Adult Medicine | DX: K21.9 Gastro-esophageal reflux disease without esophagitis (principal); K58.0 Irritable bowel syndrome with diarrhea; R11.0 Nausea | CPT/HCPCS: 85651; 86140; 86160; 86162; 86235; 86255; 86376; 86431; 86705; 86706; 86709; 86803; 87340 ==

== ENCOUNTER 2023-06-17 15:01 | Outpatient (CLI) | payer SELFPAY ==
--- NOTE | 2023-06-17 15:08 | XR_ITS ---
WS: [id number] XR lumbar spine 2-3V* [id number] REASON FOR EXAM: HERNIATED NUCLEUS/PULPOSUS OF LUMBOSACRAL REGION FINDINGS: Posterior decompression with posterior pedicle screws and interconnecting rods at L5-S1 with interbod y fusion device at L5-S1. The surgical appliances are intact and in proper position and alignment. The remainder of the lumbar spine is unremarkable. IMPRESSION: Posterior fusion lumbar spine as above.
== END 2023-06-17 15:02 | disposition home or self-care (01) ==
LOC: RAD 15:05
PROVIDERS: PCP Family Medicine Adult Medicine; Visit Provider Surgery
DX: M51.27 Other intervertebral disc displacement, lumbosacral region (principal)
CPT/HCPCS: 72100

== ENCOUNTER 2023-07-31 14:34 | Outpatient (CLI) | payer SELFPAY ==
--- NOTE | 2023-07-31 14:40 | XRR_ITS ---
PROCEDURE INFORMATION: Exam: XR Lumbosacral Spine Exam date and time: 07/31/2023 3:01 PM Age: 38 years old Clinical indication: Low back pain; Prior surgery; Surgery date: 6+ months; Surgery type: L5-s1 fusion; Additional info: Lumbar stenosis/lumbar radiculpathy TECHNIQUE: Imaging protocol: Radiologic exam of the lumbosacral spine. Views: 2 or 3 views. COMPARISON: CR XR lumbar spine 2-3V* [id number] 06/17/2023 3:11 PM FINDINGS: Tubes, catheters and devices: Hardware is intact. There is no sign of loosening. Bones/joints: Spinal alignment is normal. Vertebral body height is maintained. Intervertebral disc height is maintained above L5-S1. There is intact posterolateral and interbody fusion at L5-S1. No acute fracture. Facet joints are unremarkable. The visible portion of the pelvis and sacrum is intact. Visible portions of the ribs are intact. Soft tissues: Visible soft tissues are unremarkable. XR/XR lumbar spine 2-3V* [id number] IMPRESSION: Intact posterolateral and interbody fusion at L5-S1 without apparent complications. No change since 06/17/2023.
== END 2023-07-31 14:35 | disposition home or self-care (01) ==
LOC: RAD 14:36
PROVIDERS: PCP Family Medicine Adult Medicine; Visit Provider Nurse Practitioner Family
DX: M48.061 Spinal stenosis, lumbar region without neurogenic claudication (principal)
CPT/HCPCS: 72100

== ENCOUNTER → 2023-08-03 14:53 | Outpatient (BNVA) | payer SELFPAY | PROVIDERS: PCP Family Medicine Adult Medicine; Visit Provider Emergency Medicine | DX: J06.9 Acute upper respiratory infection, unspecified (principal) | CPT/HCPCS: 87400 ==

== ENCOUNTER 2024-06-15 14:50 | Emergency (ER) | payer BC, MEDICAID, SELFPAY ==
[2024-06-15 14:53] VITALS: BP 161/109; PULSE 99; TEMP 36.6; O2SAT 95; BMI 25.8
[2024-06-15 16:02] LABS: Basophils # 0.1 10^3/uL (0.0-0.1); Basophils % 0.3 %; Lymphocytes # 1.3 10^3/uL (0.8-4.8); Lymphocytes % 5.3 %; Mean Corpuscular HGB Conc 33.8 g/dL (30-55); Mean Corpuscular Hemoglobin 29.5 pg (27-33); Mean Corpuscular Volume 87.2 fl (82-101); Mean Platelet Volume 9.2 fL (7.4-10.4); Monocytes # 2.3 10^3/uL (0.2-0.9); Monocytes % 9.3 %; Neutrophils # 21.31 10^3/uL (1.8-7.7); Neutrophils % 84.6 %; Nucleated Red Blood Cells % 0 %; Platelet Count 296 10^3/cmm (157-399); Red Blood Count 6.31 10^6/uL (3.85-5.65); Red Cell Distribution Width 12.9 % (12.1-15.1); White Blood Count 25.18 10^3/uL (3.29-11.43)
--- NOTE | 2024-06-15 16:23 | CTR_ITS ---
PROCEDURE INFORMATION: Exam: CT Abdomen And Pelvis With Contrast Exam date and time: 06/15/2024 4:38 PM Age: 39 years old Clinical indication: Nausea and vomiting; Prior surgery; Surgery date: 6+ months; Surgery type: Gb, hernia x3; Additional info: Abdominal pain TECHNIQUE: Imaging protocol: Computed tomography of the abdomen and pelvis with contrast. Radiation optimization: All CT scans at this facility use at least one of these dose optimization techniques: automated exposure control; mA and/or kV adjustment per patient size (includes targeted exams where dose is matched to clinical indication); or iterative reconstruction. Contrast material: OMNIPAQUE 350; Contrast volume: 100 ml; Contrast route: INTRAVENOUS (IV); COMPARISON: CT abdomen pelvis w con* [id number] 01/31/2021 2:29 PM RADIATION DOSE METRICS: Total DLP (mGy-cm): 486.63 FINDINGS: Lungs: Mild bibasilar atelectasis. Esophagus: Lower esophageal wall thickening. Liver: Normal. No mass. Gallbladder and biliary ducts: Status post cholecystectomy. Mildly prominent intrahepatic bile ducts, likely prior cholecystectomy. Pancreas: Pancreas is mildly atrophic. No ductal dilatation. Spleen: Punctate calcified splenic granuloma. Spleen is normal in size. Adrenal glands: Normal. No mass. Kidneys and ureters: Similar 2.7 cm cyst in the lower pole of the left kidney. Subcentimeter cortical hypodensity in the midpole is too small to characterize but likely represents a cyst. No hydronephrosis. Stomach and bowel: Liquid stool within portions of the colon. Several fluid-filled small bowel loops are noted. No evidence of bowel obstruction. Appendix: No evidence of appendicitis. Intraperitoneal space: Unremarkable. No free air. No significant fluid collection. Vasculature: Trace atherosclerotic aortoiliac calcifications. No aortic aneurysm. Lymph nodes: Unremarkable. No enlarged lymph nodes. Urinary bladder: Unremarkable as visualized. Reproductive: Unremarkable as visualized. Bones/joints: Posterior instrumented fusion with interbody cage graft at L5-S1. L5 laminectomy. Soft tissues: Inguinal hernia repair. Tiny fat containing umbilical hernia. CT/CT abdomen pelvis w con* [id number] IMPRESSION: 1. Areas of liquid stool can be seen with diarrheal illness. 2. Fluid-filled small bowel loops are nonspecific but can be seen with enteritis. 3. Lower esophageal wall thickening may represent esophagitis. COMMENTS: Consistent with the [employer]'s Incidental Findings Committee white paper (J Am Charles Radiol 2018): Any incidental renal lesion less than 1 cm or classified as too small to characterize, or any incidental cystic renal lesion characterized as simple-appearing, is likely benign. No follow-up imaging is recommended for these lesions per consensus recommendations based on imaging criteria.
--- NOTE | 2024-06-15 16:23 | W.ED.NAVMDI ---
HPI - Nausea/Vomiting/Diarrhea General: Chief complaint: Nausea/Vomiting/Diarrhea Stated complaint: NVD Time Seen by Provider: 06/15/24 16:17 History of Present Illness: 39-year-old man with a history of chronic pain syndrome on chronic morphine therapy, nicotine dependence, neuropathy, depression, COPD and he reports ulcerative colitis who presents to the emergency room with nausea and vomiting. He has not been able to keep anything down for several days now. This includes his pain medication which is now hurting quite a bit he says. No focal abdominal pain. No fevers. No altered mental status. No diarrhea. He has history of multiple episodes of vomiting in the past. Related Data Home Medications ?Medication ?Instructions ?Recorded ?Confirmed zonisamide 100 mg capsule 100 mg PO TID 01/01/23 06/15/24 morphine 15 mg tablet,extended 15 - 30 mg PO .Q4-6H 02/12/23 06/15/24 release lidocaine 5 % topical patch 1 patch topical Q12H 06/15/24 06/15/24 venlafaxine 150 mg 150 mg PO DAILY 06/15/24 06/15/24 capsule,extended release 24 hr Previous Rx's ?Medication ?Instructions ?Recorded cetirizine 10 mg tablet (Zyrtec) 10 mg PO DAILY #30 tabs 08/03/23 metoclopramide HCl 10 mg tablet 10 mg PO QID nausea/reflux #120 02/20/24 tabs mirtazapine 15 mg tablet 15 mg PO BEDTIME PRN Sleep #90 tabs 03/04/24 fluticasone fur. 100 mcg-umeclid 1 inh inhalation QAM breathing #60 03/09/24 62.5 mcg-vilant 25 mcg ea inhalat.powder (Trelegy Ellipta) fluticasone propionate 50 2 spray intranasal DAILY #16 grams 03/09/24 mcg/actuation nasal spray,suspension (Flonase Allergy Relief) tamsulosin 0.4 mg capsule 0.4 mg PO BEDTIME #90 caps 03/11/24 diazepam 5 mg tablet 5 mg PO BID PRN anxiety 30 days 06/04/24 #60 tabs venlafaxine 75 mg capsule,extended 75 mg PO BID 30 days #60 caps 06/04/24 release 24 hr ondansetron 8 mg disintegrating 8 mg PO Q6H #14 tabs 06/15/24 tablet promethazine 25 mg rectal 25 mg NV Q6H PRN nausea and 06/15/24 suppository vomiting #12 ea Allergies Allergy/AdvReac Type Severity Reaction Status Date / Time divalproex sodium (From Allergy hives Verified 06/15/24 14:59 Depakote) ketorolac (From Toradol) Allergy hives Verified 06/15/24 14:59 Penicillins Allergy hives Verified 06/15/24 14:59 bologna Allergy ALGY-Anaphy Uncoded 06/15/24 14:59 laxis hot dogs Allergy ALGY-Anaphy Uncoded 06/15/24 14:59 laxis Review of Systems Narrative: Constitutional symptoms: Negative except as documented in HPI. Skin symptoms: Negative except as documented in HPI. Eye symptoms: Negative except as documented in HPI. ENMT symptoms: Negative except as documented in HPI. Respiratory symptoms: Negative except as documented in HPI. Cardiovascular symptoms: Negative except as documented in HPI. Gastrointestinal symptoms: Negative except as documented in HPI. Genitourinary symptoms: Negative except as documented in HPI. Musculoskeletal symptoms: Negative except as documented in HPI. Neurologic symptoms: Negative except as documented in HPI. Psychiatric symptoms: Negative except as documented in HPI. Endocrine symptoms: Negative except as documented in HPI. PFSH ED PFSH: Medical History Chronic neck and back pain Sacroiliac inflammation Chronic GERD EGD with gastric and duodenal Bx 0n 03/04/2023 [facility] Thoracic nerve root impingement Lumbar stenosis with neurogenic claudication Psychiatric care Claustrophobia Medical marijuana use Patient reports prescribed for his back and appetite, nicotine vaping COPD, mild Neuropathy Depression Seizures Nicotine dependence, other tobacco product, uncomplicated Vaping Generalized anxiety disorder Chronic post-traumatic stress disorder Surgical History History of bilateral inguinal hernia repair Status post laparoscopic cholecystectomy (02/21/20) Hx of umbilical hernia repair History of endoscopy H/O oral surgery Family History Mother History of shingles Grandfather Myocardial infarction CAD (coronary artery disease) Other Cancer Diabetes Denies family history of Anesthesia complication Bleeding disorder Social History Smoking and tobacco/nicotine status: former use of tobacco/nicotine Alcohol intake: never Substance/Drug Use: current Household members: spouse Marital status: Current occupational status: employed Physical Exam Narrative: EXAM NARRATIVE: General: Alert, no acute distress. Skin: Warm, dry. Head: Normocephalic, atraumatic. Neck: Supple, trachea midline. Eye: Extraocular movements are intact. Ears, nose, mouth and throat: Tacky oral mucosa Cardiovascular: Regular, Normal peripheral perfusion. Respiratory: Lungs are clear to auscultation, respirations are non-labored, breath sounds are equal, Symmetrical chest wall expansion. Gastrointestinal: Soft, Nontender, Non distended Musculoskeletal: Normal ROM, no deformity. Neurological: Alert and oriented, No focal neurological deficit observed. Psychiatric: Cooperative, appropriate mood & affect. Course Vital Signs: Vital signs: Vital Signs Temperature 97.8 F 06/15/24 14:53 Pulse Rate 102 H 06/15/24 17:07 Respiratory Rate 16 06/15/24 17:07 Blood Pressure 108/79 06/15/24 17:07 Pulse Oximetry 91 06/15/24 17:07 Oxygen Delivery Me thod Room Air 06/15/24 14:53 MDM - Nausea/Vomiting/Diarrhea Medical Decision Making Medical decision making: Differential diagnosis for this patient with nausea and vomiting including but not limited to and based on the above HPI, review of systems and physical exam: Urinary tract infection. Appendicitis. Cholecystis. colitis. small bowel obstruction. crohn's flare. pancreatitis. gastritis. peptic ulcer. cyclic vomiting. Viral illness. Influenza. COVID. Orders placed to evaluate differential diagnosis based on the above differential, HPI and physical exam Lab Review: Laboratory results were reviewed and interpreted by myself the emergency room physician. Patient does have some leukocytosis but no signs of infection at this time. He seems to be prone to leukocytosis in the past. Polycythemia. A little worse than usual also might indicate some dehydration. BUN and creatinine are at his baseline. Lipase is normal. CT of the abdomen pelvis shows liquid in the bowel but no acute process otherwise. This was reviewed and interpreted by myself the emergency room physician. I also reviewed the radiology report. I reviewed the patient's medical record. Reexamination: Patient remained stable. No increased work of breathing. No altered mental status. No focal motor deficits. Assessment and plan: Nausea and vomiting Dehydration Chronic pain syndrome ? Normal saline bolus, IV Zofran, Compazine, Benadryl, IV Dilaudid. - Discharged home - Discussed plan with patient. Answered any questions. - Evaluation and treatment of this problem were appropriate in the emergency setting. Lab Data 06/15/24 15:50 06/15/24 15:50 Radiology Impressions Abdomen/Pelvis CT 06/15/24 16:23 IMPRESSION: 1. Areas of liquid stool can be seen with diarrheal illness. 2. Fluid-filled small bowel loops are nonspecific but can be seen with enteritis. 3. Lower esophageal wall thickening may represent esophagitis. COMMENTS: Consistent with the [employer]'s Incidental Findings Committee white paper (J Am Charles Radiol 2018): Any incidental renal lesion less than 1 cm or classified as too small to characterize, or any incidental cystic renal lesion characterized as simple-appearing, is likely benign. No follow-up imaging is recommended for these lesions per consensus recommendations based on imaging criteria. Laboratory Results WBC 25.18 10^3/uL (3.29-11.43) H 06/15/24 15:50 RBC 6.31 10^6/uL (3.85-5.65) H 06/15/24 15:50 Hgb 18.60 g/dL (11.27-16.99) H 06/15/24 15:50 Hct 55.0 % (37-53) H 06/15/24 15:50 MCV 87.2 fl (82-101) 06/15/24 15:50 MCH 29.5 pg (27-33) 06/15/24 15:50 MCHC 33.8 g/dL (30-55) 06/15/24 15:50 RDW 12.9 % (12.1-15.1) 06/15/24 15:50 Plt Count 296 10^3/cmm (157-399) 06/15/24 15:50 MPV 9.2 fL (7.4-10.4) 06/15/24 15:50 Neut % (Auto) 84.6 % 06/15/24 15:50 Lymph % (Auto) 5.3 % 06/15/24 15:50 [place] % (Auto) 9.3 % 06/15/24 15:50 Eos % (Auto) 0.0 % 06/15/24 15:50 Baso % (Auto) 0.3 % 06/15/24 15:50 Neut # (Auto) 21.31 10^3/uL (1.8-7.7) H 06/15/24 15:50 Lymph # (Auto) 1.3 10^3/uL (0.8-4.8) 06/15/24 15:50 [place] # (Auto) 2.3 10^3/uL (0.2-0.9) H 06/15/24 15:50 Eos # (Auto) 0.0 10^3/uL (0.0-0.8) 06/15/24 15:50 Baso # (Auto) 0.1 10^3/uL (0.0-0.1) 06/15/24 15:50 Nucleated RBC % (auto) 0 % 06/15/24 15:50 Nucleated RBCs # 0.0 /100WBC 06/15/24 15:50 Sodium 133 mmol/L (136-145) L 06/15/24 15:50 Potassium 3.4 mmol/L (3.5-5.1) L 06/15/24 15:50 Chloride 95 mmol/L (98-107) L 06/15/24 15:50 Carbon Dioxide 21 mmol/L (22-29) L 06/15/24 15:50 Anion Gap 20.4 (5-19) H 06/15/24 15:50 BUN 19 mg/dL (6-20) 06/15/24 15:50 Creatinine 0.8 mg/dL (0.7-1.2) 06/15/24 15:50 GFR Calculation 107.1 mL/min (90-130) 06/15/24 15:50 Glucose 119 mg/dL (65-115) H 06/15/24 15:50 Calculated Osmolality 279 mOsm/kg (285-295) L 06/15/24 15:50 Calcium 9.8 mg/dL (8.5-10.5) 06/15/24 15:50 Total Bilirubin 0.5 mg/dL (0.15-1.2) 06/15/24 15:50 AST 21 U/L (0-40) 06/15/24 15:50 ALT 28 U/L (0-41) 06/15/24 15:50 Alkaline Phosphatase 128 U/L (40-130) 06/15/24 15:50 Total Protein 8.4 g/dL (6.6-8.7) 06/15/24 15:50 Albumin 4.7 g/dL (3.5-5.2) 06/15/24 15:50 Globulin 3.7 g/dL (1.3-4.6) 06/15/24 15:50 Lipase 26 U/L (13-60) 06/15/24 15:50 All radiology interpretation(s) finalized by discharge Discharge Plan Discharge Patient Disposition: Home Clinical Impression: Gastroenteritis, Dehydration, Chronic pain syndrome Condition: Stable Prescriptions: New promethazine 25 mg suppository 25 mg NV Q6H PRN (Reason: nausea and vomiting) Qty: 12 0RF ondansetron 8 mg tablet,disintegrating 8 mg PO Q6H Qty: 14 0RF Rx Instructions: Take 1/2-1 tab every 6 hours as needed for nausea and vomiting No Action morphine 15 mg tablet extended release 15 - 30 mg PO .Q4-6H cetirizine [Zyrtec] 10 mg tablet 10 mg PO DAILY Qty: 30 0RF mirtazapine 15 mg tablet 15 mg PO BEDTIME PRN (Reason: Sleep) Qty: 90 3RF venlafaxine 75 mg capsule,extended release 24hr 75 mg PO BID 30 Days Qty: 60 3RF diazepam 5 mg tablet 5 mg PO BID PRN (Reason: anxiety) 30 Days Qty: 60 3RF metoclopramide HCl 10 mg tablet 10 mg PO QID Qty: 120 3RF Rx Instructions: 1 tablet before meals and at bedtime fluticasone propionate [Flonase Allergy Relief] 50 mcg/actuation spray,suspension 2 spray intranasal DAILY Qty: 16 0RF Rx Instructions: administer into each nostril Trelegy Ellipta 100-62.5-25 mcg blister with device 1 inh INHALATION QAM Qty: 60 11RF tamsulosin 0.4 mg capsule 0.4 mg PO BEDTIME Qty: 90 1RF zonisamide 100 mg capsule 100 mg PO TID venlafaxine 150 mg capsule,extended release 24hr 150 mg PO DAILY lidocaine 5 % adhesive patch,medicated 1 patch topical Q12H Discharge Orders: Discharge ED (Routine); Ordered 06/15/24 Ordered By: Aneta Eden Referrals: Lisy William MD [Primary Care Provider] - Discharge Diet: Advance as tolerated Discharge Activity: Increase activity as tolerated Patient Instructions: Opioid Safety, Pain Management Activity Restrictions/Additional Instructions: Thank you for choosing [facility] for your healthcare needs today. Please realize this is an emergency room and that we are providing you with a medical screening exam and this may not be complete and all inclusive of all the testing and or work up that you may need to determine your ailment or severity of your illness. You have been screened and evaluated and felt safe for discharge. Health conditions do change or evolve sometimes and as such it is important that you follow up with your Primary Doctor to be re checked, 3-5 days is a general good time frame for follow up. You are always welcome to return to the ED for re assessment if your symptoms are worsening or you have new concerns Print Language: Luxembourgish Coding Level of Care Code ED Manager Business Information for Alexis Gonzalez
[2024-06-15 16:24] LABS: Alanine Aminotransferase 28 U/L (0-41); Albumin Level 4.7 g/dL (3.5-5.2); Alkaline Phosphatase 128 U/L (40-130); Anion Gap 20.4 (5-19); Aspartate Amino Transferase 21 U/L (0-40); Blood Urea Nitrogen 19 mg/dL (6-20); Calcium 9.8 mg/dL (8.5-10.5); Carbon Dioxide 21 mmol/L (22-29); Chloride 95 mmol/L (98-107); Creatinine Clr Calc Pharmacy 116.8576; Globulin 3.7 g/dL (1.3-4.6); Glomerular Filtration Rate 107.1 mL/min (90-130); Glucose 119 mg/dL (65-115); Lipase 26 U/L (13-60); Osmolality Calculated 279 mOsm/kg (285-295); Potassium 3.4 mmol/L (3.5-5.1); Sodium 133 mmol/L (136-145); Total Bilirubin 0.5 mg/dL (0.15-1.2); Total Protein 8.4 g/dL (6.6-8.7)
[2024-06-15 16:34] VITALS: BP 114/85; PULSE 99; O2SAT 99
[2024-06-15] MEDS: iohexol 350 mg/mL 500 mL Btl (per mL) IV (16:42)
[2024-06-15] MEDS: sodium chloride 0.9% 1,000 ML 999 ML IV (16:48)
[2024-06-15] MEDS: prochlorperazine 10 mg/2 mL Inj IVP (16:49)
[2024-06-15] MEDS: ondansetron 2 mg/ML SDV 2 mL 8 MG IVP (16:49)
[2024-06-15] MEDS: diphenhydrAMINE 50 mg/mL SDV 1mL 25 MG IVP (16:50)
[2024-06-15] MEDS: famotidine 20 mg/2 mL INJ 40 MG IVP (16:51)
[2024-06-15] MEDS: HYDROmorphone 1 mg/mL INJ 1 mL IVP (16:52)
[2024-06-15 17:07] VITALS: BP 108/79; PULSE 102; RESP 16; O2SAT 91
[2024-06-15 17:37] VITALS: BP 103/72; PULSE 99; RESP 16; O2SAT 94
[2024-06-15 17:47] LABS: Covid PCR NEGATIVE (Negative); Influenza A NEGATIVE (Negative); Influenza B NEGATIVE (Negative); Respiratory Syncytial Virus Ce NEGATIVE (Negative)
== END 2024-06-15 17:41 | disposition home or self-care (01) ==
PROVIDERS: Emergency Medicine; Emergency Provider Emergency Medicine; PCP Family Medicine
DX: K52.9 Noninfective gastroenteritis and colitis, unspecified (principal); E86.0 Dehydration; G89.4 Chronic pain syndrome; Z87.891 Personal history of nicotine dependence; J44.9 Chronic obstructive pulmonary disease, unspecified
CPT/HCPCS: 36415; 74177; 80053; 83690; 85025; 87637; 96374; 96375; 99285; J0780; J1171; J1200; J2405; J3490; J7030

== ENCOUNTER → 2024-08-16 14:50 | Outpatient (BNVA) | payer BC, MEDICAID, SELFPAY | PROVIDERS: PCP Family Medicine; Visit Provider Family Medicine | DX: R11.0 Nausea (principal); K58.0 Irritable bowel syndrome with diarrhea; K44.9 Diaphragmatic hernia without obstruction or gangrene; J44.9 Chronic obstructive pulmonary disease, unspecified | CPT/HCPCS: 80048; 85025 ==

== ENCOUNTER 2024-09-23 22:53 | Emergency (ER) | payer OTHER, BC, MEDICAID, SELFPAY ==
[2024-09-23 23:00] VITALS: BP 130/82; PULSE 67; RESP 16; TEMP 36.7; O2SAT 95; BMI 25.8
--- NOTE | 2024-09-24 02:03 | CTR_ITS ---
PROCEDURE INFORMATION: Exam: CT Lumbar Spine Without Contrast Exam date and time: 09/24/2024 2:10 AM Age: 39 years old Clinical indication: Low back pain; Prior surgery; Surgery date: 6+ months; Surgery type: Fusion, bone spur removal; Include tailbone for pain per doctor; Additional info: Pain, previous surgery TECHNIQUE: Imaging protocol: Computed tomography of the lumbar spine without contrast. Radiation optimization: All CT scans at this facility use at least one of these dose optimization techniques: automated exposure control; mA and/or kV adjustment per patient size (includes targeted exams where dose is matched to clinical indication); or iterative reconstruction. COMPARISON: MR lumbar spine wo con* [id number] 09/09/2022 2:02 PM RADIATION DOSE METRICS: Total DLP (mGy-cm): 785.3 FINDINGS: Bones/joints: Postsurgical change of the anterior abdominal wall. Decompression changes and posterior fusion at L5-S1. Transitional lumbosacral anatomy is seen with lumbarization of S1, rudimentary disc at S1-S2. No significant spinal canal stenosis. No significant neural foraminal stenosis. No significant disc pathology visualized. Gallbladder and biliary ducts: Status post cholecystectomy. Kidneys and ureters: Benign attenuating left renal cysts. Vasculature: Mild atherosclerotic disease. Soft tissues: Unremarkable. CT/CT lumbar spine wo con* [id number] IMPRESSION: Postoperative changes of the lumbar spine without acute or aggressive osseous abnormality. COMMENTS: Consistent with the [employer]'s Incidental Findings Committee white paper (J Am Charles Radiol 2018): Any incidental renal lesion less than 1 cm or classified as too small to characterize, or any incidental cystic renal lesion characterized as simple-appearing, is likely benign. No follow-up imaging is recommended for these lesions per consensus recommendations based on imaging criteria.
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
[2024-09-24] MEDS: HYDROmorphone 0.5 MG/0.5 ML INJ 1 MG IVP (02:52)
[2024-09-24] MEDS: ondansetron 2 mg/ML SDV 2 mL 8 MG IVP (02:52)
[2024-09-24 04:50] VITALS: BP 125/84; PULSE 67; O2SAT 90
[2024-09-24 04:52] VITALS: BP 125/84; PULSE 67; O2SAT 90
== END 2024-09-24 04:44 | disposition home or self-care (01) ==
PROVIDERS: Emergency Provider Emergency Medicine; PCP Family Medicine
DX: S39.012A Strain of muscle, fascia and tendon of lower back, initial encounter (principal); Z87.891 Personal history of nicotine dependence; J44.9 Chronic obstructive pulmonary disease, unspecified; X58.XXXA Exposure to other specified factors, initial encounter
CPT/HCPCS: 72131; 96374; 96375; 99285; J1171; J2405

== ENCOUNTER 2024-09-30 23:53 | Emergency (ER) | payer OTHER, BC, MEDICAID, SELFPAY ==
[2024-09-30 23:58] VITALS: BP 126/77; PULSE 67; RESP 16; TEMP 36.6; O2SAT 94; BMI 25.9
== END 2024-10-01 03:33 | disposition left against medical advice (07) ==
PROVIDERS: Emergency Provider Family Medicine; PCP Family Medicine
DX: Z53.1 Procedure and treatment not carried out because of patient's decision for reasons of belief and group pressure (principal)

== ENCOUNTER 2024-10-02 20:41 | Emergency (ER) | payer BC, MEDICAID, SELFPAY ==
[2024-10-02 20:46] VITALS: BP 126/80; PULSE 83; RESP 14; TEMP 36.6; O2SAT 96
[2024-10-02 21:00] VITALS: BP 116/71; PULSE 79; O2SAT 91
--- NOTE | 2024-10-02 21:40 | CTR_ITS ---
PROCEDURE INFORMATION: Exam: CT Thoracic Spine Without Contrast Exam date and time: 10/02/2024 10:44 PM Age: 39 years old Clinical indication: Injury or trauma; Blunt trauma (contusions or hematomas); Patient sustained two falls over last two days C/O mid/low back and coccygeal pain. ; Additional info: Fall pain TECHNIQUE: Imaging protocol: Computed tomography of the thoracic spine without contrast. Radiation optimization: All CT scans at this facility use at least one of these dose optimization techniques: automated exposure control; mA and/or kV adjustment per patient size (includes targeted exams where dose is matched to clinical indication); or iterative reconstruction. COMPARISON: CT thoracic spin wo con* [id number] 06/18/2022 6:39 PM RADIATION DOSE METRICS: Total DLP (mGy-cm): 630.31 FINDINGS: Bones/joints: T4, T5, T6 and T7 vertebral body compression deformities without retropulsion of bony fragments appear similar to prior exams, consider correlation with MRI as clinically indicated. T1-T2: No significant disc bulge or herniation. No severe spinal canal stenosis. No significant neural foraminal narrowing. T2-T3: No significant disc bulge or herniation. No severe spinal canal stenosis. No significant neural foraminal narrowing. T3-T4: No significant disc bulge or herniation. No severe spinal canal stenosis. No significant neural foraminal narrowing. T4-T5: No significant disc bulge or herniation. No severe spinal canal stenosis. No significant neural foraminal narrowing. T5-T6: No significant disc bulge or herniation. No severe spinal canal stenosis. No significant neural foraminal narrowing. T6-T7: No significant disc bulge or herniation. No severe spinal canal stenosis. No significant neural foraminal narrowing. T7-T8: No significant disc bulge or herniation. No severe spinal canal stenosis. No significant neural foraminal narrowing. T8-T9: No significant disc bulge or herniation. No severe spinal canal stenosis. No significant neural foraminal narrowing. T9-T10: No significant disc bulge or herniation. No severe spinal canal stenosis. No significant neural foraminal narrowing. T10-T11: No significant disc bulge or herniation. No severe spinal canal stenosis. No significant neural foraminal narrowing. T11-T12: No significant disc bulge or herniation. No severe spinal canal stenosis. No significant neural foraminal narrowing. T12-L1: No significant disc bulge or herniation. No severe spinal canal stenosis. No significant neural foraminal narrowing. Lungs: Emphysematous changes. Soft tissues: Unremarkable. CT/CT thoracic spin wo con* [id number] IMPRESSION: 1. Negative for acute fracture or dislocation. 2. T4, T5, T6 and T7 vertebral body compression deformities without retropulsion of bony fragments appear similar to prior exams, consider correlation with MRI as clinically indicated. 3. Emphysematous changes.
--- NOTE | 2024-10-02 21:40 | CTR_ITS ---
PROCEDURE INFORMATION: Exam: CT Pelvis Without Contrast, Skeleton Exam date and time: 10/02/2024 10:49 PM Age: 39 years old Clinical indication: Injury or trauma; Blunt trauma (contusions or hematomas); Bilateral; Sacrum and coccyx; Prior surgery; Surgery date: 6+ months; Surgery type: Lumbar fusion; Patient sustained two falls over last two days C/O mid/low back and coccygeal pain. ; Additional info: Fall, pain of sacrum, coccyx TECHNIQUE: Imaging protocol: Computed tomography of the pelvis without contrast. Exam focused on the skeleton. Radiation optimization: All CT scans at this facility use at least one of these dose optimization techniques: automated exposure control; mA and/or kV adjustment per patient size (includes targeted exams where dose is matched to clinical indication); or iterative reconstruction. COMPARISON: CT abdomen pelvis w con* [id number] 06/15/2024 4:38 PM RADIATION DOSE METRICS: Total DLP (mGy-cm): 287.16 FINDINGS: Bones/joints: L4-L5 surgical hardware. Soft tissues: Unremarkable. CT/CT pelvis wo con [id number] IMPRESSION: Negative for fracture or dislocation.
--- NOTE | 2024-10-02 21:40 | CTR_ITS ---
PROCEDURE INFORMATION: Exam: CT Lumbar Spine Without Contrast Exam date and time: 10/02/2024 10:47 PM Age: 39 years old Clinical indication: Injury or trauma; Blunt trauma (contusions or hematomas); Prior surgery; Surgery date: 6+ months; Surgery type: Lumbar fusion; Patient sustained two falls over last two days C/O mid/low back and coccygeal pain. ; Additional info: Fall pain TECHNIQUE: Imaging protocol: Computed tomography of the lumbar spine without contrast. Radiation optimization: All CT scans at this facility use at least one of these dose optimization techniques: automated exposure control; mA and/or kV adjustment per patient size (includes targeted exams where dose is matched to clinical indication); or iterative reconstruction. COMPARISON: CT lumbar spine wo con* [id number] 09/24/2024 2:10 AM RADIATION DOSE METRICS: Total DLP (mGy-cm): 609.17 FINDINGS: Bones/joints: See L3-L4 finding. L1-L2: No significant disc bulge or herniation. No severe spinal canal stenosis. No significant neural foraminal narrowing. L2-L3: No significant disc bulge or herniation. No severe spinal canal stenosis. No significant neural foraminal narrowing. L3-L4: L3-L4 broad-based disc bulge with mild spinal canal and bilateral foraminal narrowing. L4-L5: L4-L5 surgical hardware seen in place. L5-S1: No significant disc bulge or herniation. No severe spinal canal stenosis. No significant neural foraminal narrowing. Soft tissues: Unremarkable. CT/CT lumbar spine wo con* [id number] IMPRESSION: 1. Negative for fracture or dislocation. 2. L4-L5 surgical hardware seen in place. 3. L3-L4 broad-based disc bulge with mild spinal canal and bilateral foraminal narrowing.
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
[2024-10-02] MEDS: ondansetron hcl ODT 4 mg Tab 8 MG PO (21:46)
[2024-10-02 21:48] VITALS: RESP 18; O2SAT 91
[2024-10-02] MEDS: morphine 4 mg/mL SDV 1 mL IM (21:48)
[2024-10-02 21:51] VITALS: PULSE 79; O2SAT 91
--- NOTE | 2024-10-02 21:52 | PC.NURSE ---
upon giving pt IM Morphine per order, pt voiced whats the difference between IM and IV meds? Usually they give me an IV and then give me pain meds. I take Morphine 15mg tabs 4 times a day and I'm in a lot of pain. Pain meds given IM per orders. Will reassess.
--- NOTE | 2024-10-02 22:28 | PC.NURSE ---
pt's O2 continues vary from 91% to 90% to occasional 89% on RA. Pt states he has COPD and is supposed to wear cpap at night but I don't Pt also noted to be moving hand with uneven wave form. Will continue to monitor.
[2024-10-02] MEDS: cyclobenzaprine 10 mg Tablet PO (23:39)
[2024-10-02 23:40] VITALS: BP 110/70; PULSE 75; O2SAT 93
== END 2024-10-02 23:48 | disposition home or self-care (01) ==
PROVIDERS: Emergency Provider General Practice; PCP Family Medicine
DX: S39.012A Strain of muscle, fascia and tendon of lower back, initial encounter (principal); R11.2 Nausea with vomiting, unspecified; G89.29 Other chronic pain; W01.0XXA Fall on same level from slipping, tripping and stumbling without subsequent striking against object, initial encounter
CPT/HCPCS: 72128; 72131; 72192; 96372; 99284; J2270; J9999; Q0162

== ENCOUNTER 2024-11-06 15:33 | Emergency (ER) | payer BC, MEDICAID, SELFPAY ==
--- OUTSIDE RECORDS SUMMARY | 2024-03-06 04:00 | XMS_ITS ---
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 And Production Manager Name Role Phone Caesar Mon MD Primary Care Provider Unavailab Randal Covarrubias Unavailable [phone] Migration, Provider Unavailable Unavailable REASON FOR VISIT EMR-[facility] [place] Encounters Encounter Location Date Provider Diagnosis Migrated_Facility 0 0 03/06/2024 Provider Migration Plan Of Treatment Medication Medication Name Sig Start Date Stop Date Notes HYDROcodone-Acetaminop hen 7.5-325 MG Oral Tablet 1 Tablet Every 8 Hours PRN Do not exceed 2.5 tabs/day 08/01/2022 08/31/2022 *Reorder from [facility] for eRx and Interaction Alerts* Next Appt Details Provider Name:Yesi Londono Barbara, 11/16/2024 03:40:00 PM, [address] [place], [address], Progress Notes * BENITA BRASWELL DDOB:[birth year] (39 yo M)Acc No.[id number]:03/06/2024 Patient: Betina BENITA JAIN :1985 A ge:39 Y S ex:Male Address:[address] [place] [address] * Refills Stop HYDROcodone-Acetaminophen 7.5-325 MG Oral Tablet, 1 Tablet Every 8 Hours PRN Do not exceed 2.5 tabs/day Subjective: * Chief Complaints: * E MR-Philip * Medical History: * Surgical History: * Hospitalization/Major Diagno stic Procedure: * Medications: Objective: * Vitals: * Physical Examination: Assessment: Plan: * Treatment: * Procedure Codes: * * Date:
--- OUTSIDE RECORDS SUMMARY | 2024-03-07 04:00 | XMS_ITS ---
Author Organization [facility] Address [address] [place] [address] Care Team Providers Care Lining Baster Name Role Phone Caesar Mon MD Primary Care Provider Unavailab Randal Covarrubias Unavailable [phone] Migration, Provider Unavailable Unavailable Allergies Allergen (clinical drug ingredient) Drug/Non Drug Allergy documented on EMR Reaction Allergy Type Onset Date Status ketorolac Toradol (uncoded) Hives Allergy Ac tive valproate Depakote Hives Drug Allergy Active valproate Depakote ER Unknown Drug Allergy Activ e ketorolac Ketorolac Unknown Drug Allergy Active Penicillin Unknown Drug Allergy Active Substance with penicillin structure and antibacterial mechanism of action (substance) Penicillins anaphylaxis Drug Allergy Active REASON FOR VISIT EMR-Philip Medications Medication SIG (Take, Route, Frequency, Duration) Notes Start Date End Date Status pantoprazole *[facility] and Interaction Alert[facility]* Active Magnesium *Pick strength-f orm from [facility] for eRX* [facility] tamsulosin [facility]* Active Benzhydrocodone-Aceta minophen *Pick strength-form from [facility] for eRX* Active Trelegy Ellipta *Pick strength-f orm from [facility] for eRX* Active Diclofenac Potassium *Pick stren gth-form from [facility] for eRX* Active tizanidine *[facility] for [facility] and Interaction Alert[facility]* Active Encounters Encounter Location Date Provider Diagnosis Migrated_Facility 0 0 03/07/2024 Provider Migration Plan Of Treatment Next Appt Details Provider Name:Yesi Jimenez, 11/16/2024 03:40:00 PM, [address] [place], [address], Progress Notes * BENITA BRITO DDOB:[birth year] (39 yo M)Acc No.[id number]:03/07/2024 Patient: BENITA GONSALEZ :1985 A ge:39 Y S ex:Male Address:[address] [place] [address] Subjective: * Chief Complaints: * E MR-Philip * Medical History: * Surgical History: C holecystectomy Umbilical hernia repair * Hospitalization/Major Diagno stic Procedure: * Social History: M igrated Social History: M igrated Social History: Alcoholic beverages? - No, C urrently on disability? - No, D rug or substance abuse? - No, M arital Status - , N onprescription drug use? - No, P articipation in detoxification or rehabilitation - No, S moking - No, W orking currently? - Yes. * Medications: T akingpantoprazole , Notes to Pharmacist: *Reorder from [facility] for eRx and Interaction Alerts*Magnesium , Notes to Pharmacist: *Pick strength-form from [facility] for eRX*tamsulosin , Notes to Pharmacist: *Reorder from [facility] for eRx and Interaction Alerts*Benzhydrocodone-Acetaminophen , Notes to Pharmacist: *Pick strength-form from [facility] for eRX*tizanidine , Notes to Pharmacist: *Reorder from [facility] for eRx and Interaction Alerts*Trelegy Ellipta , Notes to Pharmacist: *Pick strength-form from [facility] for eRX*Diclofenac Potassium , Notes to Pharmacist: *Pick strength-form from [facility] for eRX*Taking pantoprazole , Notes to Pharmacist: *Reorder from [facility] for eRx and Interaction Alerts*Taking Magnesium , Notes to Pharmacist: *Pick strength-form from [facility] for eRX*Taking tamsulosin , Notes to Pharmacist: *Reorder from [facility] for eRx and Interaction Alerts*Taking Benzhydrocodone-Acetaminophen , Notes to Pharmacist: *Pick strength-form from [facility] for eRX*Taking tizanidine , Notes to Pharmacist: *Reorder from [facility] for eRx and Interaction Alerts*Taking Trelegy Ellipta , Notes to Pharmacist: *Pick strength-form from [facility] for eRX*Taking Diclofenac Potassium , Notes to Pharmacist: *Pick strength-form from [facility] for eRX* * Allergies: T oradol: Hives - AllergyDepakote: Hives - AllergyPenicillins: anaphylaxis - AllergyDepakote ER: AllergyKetorolac: AllergyPenicillin: Allergy Objective: * Vitals: * Physical Examination: Assessment: Plan: * Treatment: * Procedure Codes: * * Date:
--- NOTE | 2024-11-06 15:41 | CTR_ITS ---
PROCEDURE INFORMATION: Exam: CT Head Without Contrast Exam date and time: 11/06/2024 4:11 PM Age: 39 years old Clinical indication: Altered mental status/memory loss and malaise or fatigue; Confusion or disorientation; Additional info: New onset seizure TECHNIQUE: Imaging protocol: Computed tomography of the head without contrast. Radiation optimization: All CT scans at this facility use at least one of these dose optimization techniques: automated exposure control; mA and/or kV adjustment per patient size (includes targeted exams where dose is matched to clinical indication); or iterative reconstruction. COMPARISON: CT head wo con* [id number] 09/20/2022 12:06 PM RADIATION DOSE METRICS: Total DLP (mGy-cm): 1038.28 FINDINGS: Brain: Normal. No hemorrhage. Unremarkable white matter. No mass effect. Cerebral ventricles: No ventriculomegaly. Paranasal sinuses: Visualized sinuses are unremarkable. No fluid levels. Mastoid air cells: Visualized mastoid air cells are well aerated. Bones: Unremarkable. No acute fracture. Soft tissues: Unremarkable. CT/CT head wo con* [id number] IMPRESSION: No acute intracranial abnormality.
[2024-11-06 15:42] VITALS: BP 155/99; PULSE 68; RESP 18; TEMP 36.7; O2SAT 98
--- NOTE | 2024-11-06 15:46 | ED_ITS ---
HPI - Seizure 2 General: Chief Complaint: Seizure Stated Complaint: seizures Time Seen by Provider: 11/06/24 15:35 History of Present Illness: HPI Narrative: 39-year-old male presents emergency depa rtment by EMS. He reportedly had 2 seizures in the 4 hours preceding ER visit. Patient reports he did have loss of consciousness. He cannot recall a lot about the events. His grandparents evidently saw the seizures and are not here at this time. Patient reports he used to have seizures; based on his best recollection he has not had one for about 5 years. He does suffer from chronic pain syndrome. He reports he takes 60 mg of oxycodone daily, tizanidine 6 times daily, diazepam 5 mg 3 times daily, mirtazapine at bedtime, Reglan 4 times a day for reflux and chronic nausea vomiting, omeprazole for chronic GERD. EMS reports stable in transport. He was vomiting when they arrived.. He was not postictal. Patient reports he is sore all over but does not have any areas of significant trauma. He did not have incontinence nor tongue biting. Patient reports he was unable to keep down some of his medications this morning because of vomiting. ? Medication withdrawal Associated symptoms: Deny chest pain, chills or fever(s) Related Data Previous Rx's ?Medication ?Instructions ?Recorded cetirizine 10 mg tablet (Zyrtec) 10 mg PO DAILY #30 ta bs 08/03/23 mirtazapine 15 mg tablet 15 mg PO BEDTIME PRN Sleep # 90 tabs 03/04/24 fluticasone propionate 50 2 spray intranasal DAILY #16 grams 03/09/24 mcg/actuation nasal spray,suspension (Flonase Allergy Relief) tamsulosin 0.4 mg capsule 0.4 mg PO BEDTIME #90 caps 1 metoclopramide HCl 10 mg tablet 10 mg PO QID nausea/re flux #120 06/25/24 tabs fluticasone fur. 100 mcg-umeclid 1 inh inhalation QAM breathing 3 08/16/24 62.5 mcg-vilant 25 mcg months #4 ea inhalat.powder (Trelegy Ellipta) omeprazole 20 mg capsule,delayed 20 mg PO QAM #90 caps 08/16/24 release ondansetron 8 mg disintegrating 8 mg PO Q6H #14 tabs 0 08/16/24 tablet sildenafil 100 mg tablet (Viagra) 100 mg PO DAILY PRN sexual 08/16/24 activity #10 tabs diazepam 5 mg tablet 5 mg PO TID PRN anxiety 30 d ays 09/27/24 #90 tabs venlafaxine 150 mg 150 mg PO DAILY 30 days #30 caps 10/27/24 capsule,extended release 24 hr venlafaxine 75 mg capsule,extended 75 mg PO BID 30 day s #60 caps 10/27/24 release 24 hr Allergies Allergy/AdvReac Type Severity Reaction Status Date / Time divalproex sodium (From Allergy hives Verified 10/02/24 20:52 Depakote) ketorolac (From Toradol) Allergy hives Verified 10/02/24 20:52 Penicillins Allergy hives Verified 10/02/24 20:52 bologna Allergy ALGY-Anaphy Uncoded 10/02/24 20:52 laxis hot dogs Allergy ALGY-Anaphy Uncoded 10/02/24 20:52 laxis Review of Systems 2 General: Reports: 10 or more systems reviewed and unremarkable except in HPI and below Const: Denies: fever(s), chills or body aches Eyes: Denies: change in vision ENMT: Denies: throat pain Card: Denies: chest pain or edema Resp: Denies: dyspnea or productive cough GI: Denies: abdominal pain or diarrhea : Denies: flank pain, dysuria or urinary frequency Skin/Breast: Denies: rash or erythema Neuro: Denies: numbness in extremities, weakness in extremities, lack of coordination or difficulty walking PFSH ED 2 PFSH: Medical History Nicotine dependence, other tobacco product, uncomplicated Vaping; quit smoking cigarettes 2017 Irritable bowel syndrome with diarrhea after cholecystectomy? Erectile dysfunction BPH associated with nocturia Hx of renal calculi History of seizure years ago, was due to poisioning by an ex Hiatal hernia small on EGD Chronic neck and back pain goes to [facility], on opioids Sacroiliac inflammation Thoracic nerve root impingement Lumbar stenosis with neurogenic claudication Psychiatric care Claustrophobia COPD, mild Neuropathy Depression Generalized anxiety disorder Chronic post-traumatic stress disorder Surgical History Hx of colonoscopy 7.16.20--normal; EGD done as well that date and showed small hiatal hernia but no other abnormalities; bxes normal History of lumbar fusion L4-5 at [place] then had surgery 2 wks after for spinal cord leak--had to have patch History of bilateral inguinal hernia repair Status post laparoscopic cholecystectomy (02/21/20) Hx of umbilical hernia repair History of endoscopy has had EGDs and Colonoscopies H/O oral surgery Family History Mother History of shingles Grandfather Myocardial infarction CAD (coronary artery disease) Brother No problems noted. 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 Some diaphoresis across the upper lip. Pupils are slightly dilated. Const: COMMON NORMALS: no limitations and alert EXAM LIMITATIONS: no altered mental status HENMT: COMMON NORMALS: normocephalic, atraumatic and external ears normal H EAD & SCALP: normocephalic and atraumatic EXTERNAL EAR: Yes external ears normal MOUTH: no muffled voice Eye: COMMON NORMALS: Equal, round and reactive pupils present, EOMs intact bilaterally, conjunctivae normal and no scleral icterus CONJUNCTIVA: Yes conjunctivae normal PUPIL: Yes Equal, round and reactive pupils present Neck/C-Spine: COMMON NORMALS: no JVD GENERAL: Yes normal visual inspection and Yes trachea midline Resp: COMMON NORMALS: normal respiratory effort, No use of accessory muscles and clear to auscultation bilaterally AUSCULTATION: clear to auscultation bilaterally Cardio: COMMON NORMALS: no JVD, regular rate and regular rhythm RATE: r egular rate RHYTHM: regular rhythm GI: COMMON NORMALS: Soft to palpation and non-tender PALPATION: Yes Soft to palpation and No Guarding due to palpation present (GI) Extremity: COMMON NORMALS: normal to inspection Neuro: COMMON NORMALS: moves all extremities, no focal motor deficits and no sensory deficits noted SENSORIUM/ORIENTATION: Yes alert SPEECH: speech normal Psych: COMMON NORMALS: mental status grossly normal, Normal thought process present, cooperative, normal affect and speech normal SPEECH: Yes normal speech THOUGHT PROCESS: Normal thought process present Skin: COMMON NORMALS: no rashes or lesions noted, turgor normal and no jaundice GENERAL SKIN EXAM: no rashes or lesions noted and turgor normal Course 2 Vital Signs: Vital signs: Vital Signs Temperature 98.1 F 11/06/24 15:42 Pulse Rate 68 11/06/24 15:42 Respiratory Rate 17 11/06/24 15:58 Blood Pressure 155/99 11/06/24 15:42 Pulse Oximetry 95 11/06/24 15:58 Oxygen Delivery Me thod Room Air 11/06/24 15:42 MDM - Seizure MDM Narrative Medical decision making narrative: Patient appears chronically ill. He does appear pale and has some diaphoresis on his upper lip. He says he still feels nauseated. No eyewitnesses to give any more details about possible seizure syndrome. It is noted patient reports nausea this morning was unable to keep down some of his medications. He is accustomed to taking scheduled oxycodone, Valium, tizanidine, Reglan. He reports he used to have seizures all the time but has not had one for about 5 years. He is not on any traditional seizure medications. No trauma. No fevers. No tongue biting. No incontinence. Lactate will be obtained for evaluation of possible tonic-clonic seizures. CT scan of the head will be obtained since he does not report any recent history of seizures in the last 5 years. We can give him some Valium p.o. and see if he can keep it down. We can also give him a dose of morphine here. This should help prevent withdrawal. I have also ordered some Zofran and IV fluids. The patient specifically denies use of alcohol because of his chronic gastrointestinal symptoms. Update found out that he was in the emergency department. She called appear angry. She states that he is in opiate withdrawal. She states that he is post to be on morphine multiple times per day. The doctor that prescribes him this medication got her license suspended. He ran out of opiates. He has been trying to get opiates other ways. She says that he intentionally waited until she left to go to work and then called an ambulance. She strongly believes that he is searching for opiate medication. Clinically, the patient does appear to be in opiate withdrawal. Morphine was given and this improved his symptoms. Patient tolerated oral Valium. He still feels nauseated after Zofran and Phenergan. He does endorse chronic nausea. Patient's lactic acid was normal. This would argue against ongoing tonic-clonic seizure in the prehospital setting. I would not recommend starting seizure medications based on first-time seizure presentation in a patient who has no diagnosis of epilepsy. No tongue biting. No reported postictal phase. No incontinence. CT scan of the head was reassuring. Patient was reassessed and still has not had any seizure activity in the emergency department. Lab Data 11/06/24 16:36 11/06/24 16:36 Labs: Radiology Impressions Head CT 11/06/24 15:41 IMPRESSION: No acute intracranial abnormality. Laboratory Results WBC 14.86 10^3/uL (3.29-11.43) H 11/06/24 16:36 RBC 5.38 10^6/uL (3.85-5.65) 11/06/24 16:36 Hgb 16.10 g/dL (11.27-16.99) 11/06/24 16:36 Hct 47.3 % (37-53) 11/06/24 16:36 MCV 87.9 fl (82-101) 11/06/24 16:36 MCH 29.9 pg (27-33) 11/06/24 16:36 MCHC 34.0 g/dL (30-55) 11/06/24 16:36 RDW 12.6 % (12.1-15.1) 11/06/24 16:36 Plt Count 250 10^3/cmm (157-399) 11/06/24 16:36 MPV 9.2 fL (7.4-10.4) 11/06/24 16:36 Neut % (Auto) 91.3 % 11/06/24 16:36 Lymph % (Auto) 5.2 % 11/06/24 16:36 Ogle % (Auto) 2.8 % 11/06/24 16:36 Eos % (Auto) 0.0 % 11/06/24 16:36 Baso % (Auto) 0.2 % 11/06/24 16:36 Neut # (Auto) 13.56 10^3/uL (1.8-7.7) H 11/06/24 16:36 Lymph # (Auto) 0.8 10^3/uL (0.8-4.8) 11/06/24 16:36 Ogle # (Auto) 0.4 10^3/uL (0.2-0.9) 11/06/24 16:36 Eos # (Auto) 0.0 10^3/uL (0.0-0.8) 11/06/24 16:36 Baso # (Auto) 0.0 10^3/uL (0.0-0.1) 11/06/24 16:36 Nucleated RBC % (auto) 0 % 11/06/24 16:36 Nucleated RBCs # 0.0 /100WBC 11/06/24 16:36 Sodium 140 mmol/L (136-145) 11/06/24 16:36 Potassium 3.9 mmol/L (3.5-5.1) 11/06/24 16:36 Chloride 104 mmol/L (98-107) 11/06/24 16:36 Carbon Dioxide 20 mmol/L (22-29) L 11/06/24 16:36 Anion Gap 19.9 (5-19) H 11/06/24 16:36 BUN 6 mg/dL (6-20) 11/06/24 16:36 Creatinine 0.8 mg/dL (0.7-1.2) 11/06/24 16:36 GFR Calculation 107.1 mL/min (90-130) 11/06/24 16:36 Glucose 163 mg/dL (65-115) H 11/06/24 16:36 Calculated Osmolality 291 mOsm/kg (285-295) 11/06/24 16:36 Lactic Acid 1.5 mmol/L (0.5-2.2) 11/06/24 16:36 Calcium 9.4 mg/dL (8.5-10.5) 11/06/24 16:36 Magnesium 2.0 mg/dL (1.7-2.3) 11/06/24 16:36 Total Bilirubin 0.3 mg/dL (0.15-1.2) 11/06/24 16:36 AST 19 U/L (0-40) 11/06/24 16:36 ALT 24 U/L (0-41) 11/06/24 16:36 Alkaline Phosphatase 116 U/L (40-130) 11/06/24 16:36 Total Protein 7.5 g/dL (6.6-8.7) 11/06/24 16:36 Albumin 4.4 g/dL (3.5-5.2) 11/06/24 16:36 Globulin 3.1 g/dL (1.3-4.6) 11/06/24 16:36 All radiology interpretation(s) finalized by discharge Discharge Plan Discharge Patient Disposition: Home Clinical Impression: Observed seizure-like activity, Opiate withdrawal, Chronic nausea Condition: Stable Prescriptions: No Action cetirizine [Zyrtec] 10 mg tablet 10 mg PO DAILY Qty: 30 0RF mirtazapine 15 mg tablet 15 mg PO BEDTIME PRN (Reason: Sleep) Qty: 90 3RF Trelegy Ellipta 100-62.5-25 mcg blister with device 1 inh INHALATION QAM 90 Days Qty: 4 3RF ondansetron 8 mg tablet,disintegrating 8 mg PO Q6H Qty: 14 1RF Rx Instructions: Take 1/2-1 tab every 6 hours as needed for nausea and vomiting sildenafil [Viagra] 100 mg tablet 100 mg PO DAILY PRN (Reason: sexual activity) Qty: 10 0RF Rx Instructions: administer 30 minutes to 4 hours before activity omeprazole 20 mg capsule,delayed release(DR/EC) 20 mg PO QAM Qty: 90 1RF diazepam 5 mg tablet 5 mg PO TID PRN (Reason: anxiety) 30 Days Qty: 90 3RF fluticasone propionate [Flonase Allergy Relief] 50 mcg/actuation spray,suspension 2 spray intranasal DAILY Qty: 16 0RF Rx Instructions: administer into each nostril tamsulosin 0.4 mg capsule 0.4 mg PO BEDTIME Qty: 90 1RF metoclopramide HCl 10 mg tablet 10 mg PO QID Qty: 120 3RF Rx Instructions: 1 tablet before meals and at bedtime venlafaxine 75 mg capsule,extended release 24hr 75 mg PO BID 30 Days Qty: 60 3RF venlafaxine 150 mg capsule,extended release 24hr 150 mg PO DAILY 30 Days Qty: 30 3RF Discharge Orders: Discharge ED (Routine); Ordered 11/06/24 Ordered By: Samy Brady Referrals: Lisy William MD [Primary Care Provider, Family Practice] - 11/15/24 Eileen Paulino MD [Physician, Neurology] - 11/17/24 Clinical Impression: Observed seizure-like activity Patient Instructions: Opioid Safety, Pain Management, Patient Portal & Romeo Instructions, New-Onset Seizure in Adults (ED) Activity Restrictions/Additional Instructions: Seizure-like activity was reported in the prehospital setting. Seizure medication is typically not started for first-time seizures. If seizures recur, you may need to be started on epilepsy medications. We recommend follow-up with a neurologist. Dr. Paulino is available for consultations in the office. Print Language: [place]ian Coding Level of Care Code ED Industrial Technology Teacher for Alexis Gonzalez
--- OUTSIDE RECORDS SUMMARY | 2024-11-06 15:51 | XMS_ITS | Encounter Summary ---
Author Organization [facility] Address [address] [place] [address] Care Team Providers Care Chromium Plater Name Role Phone Isamar West NP Primary Care Provider [phone] Encounter Details Date Type Department Care Team (Late st Contact Info) Description 01/20/2008 Emergency [facility] Emergency Department [address] 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 Gender Identity Not on file Sexual Orientation Not on file documented as of this encounter Plan of Treatment Not on file documented as of this encounter Procedures Procedure Name Priority Date/Time Associated Diagnosis Comments CT ABDOMEN PELVIS W CONTRAST Routine 01/20/2008 8:24 AM CDT URINALYSIS MICROSCOPY ONLY Stat 01/20/2008 6:58 AM CDT ACUTE HEPATITIS PANEL Stat 01/20/2008 6:58 AM CDT IRON, TIBC, AND PERCENT SATURATION Stat 01/20/2008 6:58 AM CDT CBC WITH DIFFERENTIAL Stat 01/20/2008 6:58 AM CDT URINALYSIS W/REFLEX MICROSCOPIC Stat 01/20/2008 6:58 AM CDT LIPASE Stat 01/20/2008 6:58 AM CDT AMYLASE Stat 01/20/2008 6:58 AM CDT ACETAMINOPHEN LEVEL Stat 01/20/2008 6 :58 AM CDT COMPREHENSIVE METABOLIC PANEL Stat 01/20/2008 6:58 AM CDT documented in this encounter Results * CT ABDOMEN PELVIS W CONTRAST (01/20/2008 8:24 AM CDT) Anatomical Region Laterality Modality Abdomen Other 01/20/2008 8:24 AM CDT Narrative 01/20/2008 11:28 AM CDT Exam: CT Abdomen, Pelvis, w/contrast Date/Time of Exam: Jan 20, 2008 8:24:07 AM History: Please see order comments. Technique: CT of the abdomen and pelvis was performed after the administration of intravenous contrast. Contrast administered was: 75 mL Optiray-240 and oral contrast. Findings: Liver is normal in size. There is periportal low attenuation present. No focal liver lesion is seen. No biliary dilatation evident. Gallbladder is unremarkable. The spleen, pancreas, adrenals and right kidney are within normal limits. 2.5 cm left lower pole renal cortical lesion, indeterminate by attenuation criteria. Large amount of proximal colonic stool. Appendix is not definitely visualized. No ascites or adenopathy. Unremarkable urinary bladder, seminal vesicles, and prostate. Visualized lung bases are unremarkable. No significant bony pathology evident. Impression: Periportal low attenuation, a nonspecific finding associated with multiple entities including viral hepatitis, blunt abdominal trauma, vascular congestion and other less common entities in this clinical setting. Large amount proximal colonic stool. 2.5 cm left lower pole renal cortical lesion, indeterminate by CT attenuation criteria. Given its size, ultrasound may be helpful in further assessment although if indeterminate MRI would be recommended for further evaluation. - Dictated By: Elieser Franco M.D. Electronically Signed By: Elieser Franco M.D. Date Signed: 01/20/08 SDM Procedure Note Elieser Franco - 01/20/2008 Exam: CT Abdomen, Pelvis, w/contrast Date/Time of Exam: Jan 20, 2008 8:24:07 AM History: Please see order comments. Technique: CT of the abdomen and pelvis was performed after theadministration of intravenous contrast. Contrast administered was: 75 mL Optiray-240 and oral contrast. Findings: Liver is normal in size. There is periportal low attenuationpresent. No focal liver lesion is seen. No biliary dilatation evident. Gallbladder is unremarkable. Thespleen, pancreas, adrenals and right kidney are within normal limits. 2.5 cm left lower pole renalcortical lesion, indeterminate by attenuation criteria. Large amount of proximal colonic stool. Appendix isnot definitely visualized. No ascites or adenopathy. Unremarkable urinary bladder, seminal vesicles, andprostate. Visualized lung bases are unremarkable. No significant bony pathology evident. Impression: Periportal low attenuation, a nonspecific finding associatedwith multiple entities including viral hepatitis, blunt abdominal trauma, vascular congestion and otherless common entities in this clinical setting. Large amount proximal colonic stool. 2.5 cm left lowerpole renal cortical lesion, indeterminate by CT attenuation criteria. Given its size, ultrasound maybe helpful in further assessment although if indeterminate MRI would be recommended for furtherevaluation. - Dictated By: Elieser Franco M.D. Electronically Signed By: Elieser Franco M.D. Date Signed: 01/20/08 SDM Kei Torres MD CT ORDERABLES Final Resu lt * URINALYSIS MICROSCOPY ONLY (01/20/2008 6:58 AM CDT) BACTERIA UA None Seen None Seen [facility] RBC UA None Seen 0 - 2 [facility] HYALINE CAST None Seen 0 - 2 [facility] WBC URINE None Seen 0 - 2 [facility] Urine specimen (specimen) 01/20/2008 6:58 AM CDT 01/20/2008 6:58 AM CDT Narrative INTERFACE SYSTEM - 01/20/2008 7:12 AM CDT Microscopic ordered by policy Kei Torres MD URINE ORDERABLES Final Res ult INTERFACE SYSTEM Refer to clinic/hospital department [facility] CLIA# [id number] [address] [place] [address] [place] [address] * (ABNORMAL) URINALYSIS (01/20/2008 6:58 AM CDT) Pathologist [facility] MICRO EXAM Yes(A) No [facility] KETONES UA NEGATIVE NEGATIVE [facility] COLOR UA Pale Yellow Straw [facility] PROTEIN UA NEGATIVE NEGATIVE [facility] BLOOD UA Trace(A) NEGATIVE [facility] NITRITE UA NEGATIVE NEGATIVE [facility] UROBILINOGEN UA 0.2 0.2 [facility] CLARITY UA Clear Clear [facility] GLUCOSE UA NEGATIVE NEGATIVE [facility] SPECIFIC GRAVITY UA 1.003 <=1.005 [facility] PH UA 6.0 5.0 - 9.0 [facility] BILIRUBIN UA NEGATIVE NEGATIVE [facility] LEUKOCYTE ESTERASE UA NEGATIVE NEGATIVE [facility] Urine specimen (specimen) 01/20/2008 6:58 AM CDT 01/20/2008 6:58 AM CDT Kei Torres MD URINE ORDERABLES Final Res ult Performing Organization Address [facility] Phone Number INTERFACE SYSTEM Refer to clinic/hospital department [facility] CLIA# [id number] [address] [place] [address] * (ABNORMAL) IRON AND TIBC (01/20/2008 6:58 AM CDT) Pathologist [facility] IRON % SATURATION 21 15 - 60 % [facility] IRON 59(L) 65 - 175 ug/dL [facility] Comment: Specimen slightly hemolyzed TIBC 275 250 - 450 ug/dL [facility] Blood specimen (specimen) 01/20/2008 6:58 AM CDT 01/20/2008 6:58 AM CDT Kei Torres MD CHEMISTRY ORDERABLES Final Result Performing Organization Address City/[facility] de Phone Number INTERFACE SYSTEM Refer to clinic/hospital department [facility] CLIA# [id number] [address] [place] [address] * ACETAMINOPHEN LEVEL (01/20/2008 6:58 AM CDT) ACETAMINOPHEN LEVEL <10 10 - 30 ug/ml [facility] Blood specimen (specimen) 01/20/2008 6:58 AM CDT 01/20/2008 6:58 AM CDT us Kei Torres MD CHEMISTRY ORDERABLES Final Result INTERFACE SYSTEM Refer to clinic/hospital department [facility] CLIA# [id number] [address] [place] [address] * (ABNORMAL) COMPREHENSIVE METABOLIC PANEL (01/20/2008 6:58 AM CDT) Pathologist [facility] ALT 25 4 - 36 IU/L [facility] CALCIUM 9.8 8.4 - 10.5 mg/dL [facility] GLUCOSE 88 70 - 110 mg/dL [facility] ALKALINE PHOSPHATASE 74 25 - 100 U/L [facility] CHLORIDE 106 95 - 110 mEq/L [facility] OSMOLALITY, CALCULATED 291 275 - 295 mOsm/Kg [facility] GLOBULIN (CALC) 2.7 2.4 - 3.9 g/dL [facility] TOTAL PROTEIN 7.6 6.3 - 8.2 g/dL [facility] SODIUM 143 136 - 145 mEq/L [facility] BILIRUBIN TOTAL 0.3 0.3 - 1.2 mg/dL [facility] BUN 7(L) 9 - 20 mg/dL [facility] CO2 31 22 - 32 mmol/l [facility] AST 39(H) 8 - 33 U/L [facility] ALBUMIN/GLOBULIN RATIO 1.8 1.0 - 2.3 [facility] POTASSIUM 4.1 3.5 - 5.0 mEq/L [facility] Comment: Specimen slightly hemolyzed ANION GAP 10 9 - 20 mEq/L [facility] ALBUMIN 4.9 3.5 - 5.0 g/dL [facility] CREATININE 0.9 0.7 - 1.5 mg/dL [facility] Blood specimen (specimen) 01/20/2008 6:58 AM CDT 01/20/2008 6:58 AM CDT Kei Torres MD CHEMISTRY ORDERABLES Final Result Performing Organization Address [facility] Phone Number INTERFACE SYSTEM Refer to clinic/hospital department [facility] CLIA# [id number] [address] [place] [address] * LIPASE (01/20/2008 6:58 AM CDT) LIPASE 40 6 - 51 U/L [facility] Blood specimen (specimen) 01/20/2008 6:58 AM CDT 01/20/2008 6:58 AM CDT Kei Torres MD CHEMISTRY ORDERABLES Final Result Performing Organization Address [facility] Phone Number INTERFACE SYSTEM Refer to clinic/hospital department [facility] CLIA# [id number] [address] [place] [address] * AMYLASE (01/20/2008 6:58 AM CDT) AMYLASE 66 20 - 104 U/L [facility] Blood specimen (specimen) 01/20/2008 6:58 AM CDT 01/20/2008 6:58 AM CDT Kei Torres MD CHEMISTRY ORDERABLES Final Result Performing Organization Address [facility] Phone Number INTERFACE SYSTEM Refer to clinic/hospital department [facility] CLIA# [id number] [address] [place] [address] * (ABNORMAL) CBC WITH DIFFERENTIAL (01/20/2008 6:58 AM CDT) WBC 9.4 4.5 - 11.0 K/ul [facility] NEUTROPHILS 34.6(L) 42.2 - 75.2 % [facility] MCH 31.1 27.0 - 34.0 pg [facility] NEUTROPHIL ABSOLUTE 3.3 2.0 - 8.0 K/ul [facility] HEMATOCRIT 45.4 41.0 - 53.0 % [facility] PLATELETS 220 140 - 440 K/ul [facility] EOSINOPHIL ABSOLUTE 0.2 0.0 - 0.7 K/ul [facility] EOSINOPHILS 1.7 0.0 - 7.0 % [facility] PERIPHERAL BLOOD SMEAR REVIEW Automated Diff [facility] RBC 5.05 4.60 - 6.20 Mil/ul [facility] MCHC 34.6 30.0 - 35.0 g/dL [facility] LYMPHOCYTE ABSOLUTE 5.0(H) 1.2 - 4.0 K/ul [facility] LYMPHOCYTES 52.7(H) 24.0 - 44.0 % [facility] MCV 89.9 84.0 - 103.0 Fl [facility] BASOPHILS 0.5 0.0 - 1.0 % [facility] MPV 10.8 8.9 - 12.8 Fl [facility] BASOPHILS ABSOLUTE 0.1 0.0 - 0.2 K/ul [facility] HEMOGLOBIN 15.7 14.0 - 18.0 g/dL [facility] MONOCYTES 10.5(H) 2.0 - 10.0 % [facility] RDW 12.7 11.0 - 14.5 % [facility] MONOCYTE ABSOLUTE 1.0(H) 0.1 - 0.6 K/ul [facility] Blood specimen (specimen) 01/20/2008 6:58 AM CDT 01/20/2008 6:58 AM CDT Kei Torres MD HEMATOLOGY ORDERABLES Courtney l Result Performing Organization Address [facility] de Phone Number INTERFACE SYSTEM Refer to clinic/hospital department [facility] CLIA# [id number] [address] [place] [address] * ACUTE HEPATITIS PANEL (01/20/2008 6:58 AM CDT) HEPATITIS B SURFACE AG Non-Reactiv e Non-Reactiv e [facility] HEPATITIS B CORE IGM Negative Negative [facility] HEPATITIS C AB Non-Reactiv e Non-Reactiv e [facility] Comment: HCV antibody testing is performed by enhanced chemiluminescence immunoassay methodology. The CDC recommends that positive HCV antibody tests be confirmed with either RIBA (recombinant immunoblot assay) or PCR testing. The same specimen can be used for RIBA testing and will be held for 7 days. Please contact the Chemistry laboratory if RIBA testing is desired. HEPATITIS A IGM Negative Negative [facility] Blood specimen (specimen) 01/20/2008 6:58 AM CDT 01/20/2008 6:58 AM CDT Kei Torres MD CHEMISTRY ORDERABLES Edite d Performing Organization Address [facility] Phone Number INTERFACE SYSTEM Refer to clinic/hospital department [facility] CLIA# [id number] [address] [place] [address] documented in this encounter Visit Diagnoses Not on filedocumented in this encounter Care Teams Chromium Plater Relationship Specialty Start Date End Date Isamar West NP [address] [place], [place] [address] PCP - General NURSE PRACTITIONER 12/13/18 documented as of this encounter
--- OUTSIDE RECORDS SUMMARY | 2024-11-06 15:51 | XMS_ITS | Patient Health Record ---
Author Organization [facility] Address [address] [facility] [place] [address] Care Team Providers Care Commercial Construction Superintendent Name Role Phone Caesar Mon MD Primary Care Provider Unavailab Randal Covarrubias Unavailable [phone] Migration, Provider Unavailable Unavailable Gastroenterology, [facility] Unavailable [phone] Allergies Allergen (clinical drug ingredient) Drug/Non Drug [...] action (substance) Penicillins anaphylaxis Drug Allergy Active Reason For Referral Reason chronic neck and earl k pain Diagnosis 1 Cervicalgia (M54.2) Diagnosis 2 Dorsalgia, unspecifi ed (M54.9) Diagnosis 3 Other chronic pain ( G89.29) Referring Provider First Name Lisy Referring Provider Last Name Lala Referring Provider Speciality Family Med icine Referred Organization [facility] Home Referred Provider Mega Nugent Referred Address [address] [facility],[place],[address], Referred Provider Specialty Pain Medicin e Referral Priority Routine Medications Medication SIG (Take, Route, Frequency, Duration) Notes Start Date End Date Status Morphine Sulfate 15 MG 1 tablet as neede d Orally 6 times a day Active Mirtazapine 15 MG 1 tablet at bedtime Orally Once a day Active Benzhydrocodone-Acetam inophen *Pick strength-form from [facility] for eRX* Active tizanidine *Reorder from [facility] for eRx and Interaction Alerts* Active pantoprazole *Reorder from [facility] for eRx and Interaction Alerts* Active Potassium 99 MG 1 tablet Orally Once a day Active Magnesium *Pick strength-form from [facility] for eRX* Active tamsulosin *Reorder from [facility] for eRx and Interaction Alerts* Active Promethazine HCl 25 MG 1 tablet as neede d Orally every 12 hrs Active Probiotic 1-250 BILLION-MG as directed Orally Active Diclofenac Potassium *Pick strength-form from [facility] for eRX* Active Soma 350 MG 1 tablet as needed Orally Four times a day Active Protonix 40 MG 1 tablet Orally Twice a day Active FiberCon 625 MG 2 tablets as needed Orally 4 X times a day Active Trelegy Ellipta 100-62.5-25 MCG/ACT 1 puff Inhalation Once a day Active Albuterol Sulfate 108 (90 Base) MCG/ACT 1 puff as needed Inhalation every 4 hrs Active Tamsulosin HCl 0.4 MG 1 capsule Orally Once a day Active Metoclopramide HCl 10 MG 1 tablet before meals Orally Four times a day Active Zonisamide 100 MG 1 capsule Orally 3 X a day Active Trelegy Ellipta *Pick strength-form from [facility] for eRX* Active LORazepam 0.5 MG 1 tablet at bedtime as needed Orally 3 X a day Active Zofran 4 mg 2 tables PRN Ac tive Social History Tobacco Use: Social History Observation Description Date Details (start date - stop date) Never Smoker NA - NA xTobacco Use/Smoking Question Answer Notes Are you a nonsmoker Alcohol Screen (Audit-C) Question Answer Notes Did you have a drink containing alcohol in the p ast year? No Points 0 Interpretation Negative Problems Problem Type SNOMED Code ICD Code Onset Dates Problem Status W/U Status Risk Notes Problem 53748525 Other chronic pain (G89.29) Active confirmed Problem 02173282 Cervicalgia (M54.2) Active confirmed Problem 29148537 Epigastric pain (R10.13) Active confirmed Problem 99467269 Weight loss (R63.4) Active confirmed Problem Degeneration of lumbar intervertebral disc (62525714) Degenerative disc disease, lumbar (M51.36) Active confirmed Problem Displacement of lumbar intervertebral disc without myelopathy (05648895) Herniated nucleus pulposus of lumbosacral region (M51.27) Active confirmed Problem 147781638 Vapes nicotine containing substance (Z72.0) Active confirmed Problem 67520272 Nausea and vomiting, unspecified vomiting type (R11.2) Active confirmed Vital Signs Heart Rate 84 /min 11/11/2023 Temperature 97.6 degrees Fahrenheit 11/11/2023 Respiratory Rate 20 /min 11/11/2023 Oximetry 97 % 11/11/2023 Height-cm 162.56 cm 11/11/2023 Blood pressure diastolic 64 mm Hg 11/11/2023 Weight-kg 56.7 kg 11/11/2023 Height 64 in 11/11/2023 Blood pressure systolic 114 mm Hg 11/11/2023 Weight 125 lbs 11/11/2023 BMI 21.45 kg/m2 11/11/2023 Encounters Encounter Location Date Provider Diagnosis Migrated_Facility 0 0 03/06/2024 Provider Migration Migrated_Facility 0 0 03/07/2024 Provider Migration [facility] [address] [place] [address] 12/09/[address] [facility] [address] [address] 11/11/2023 Randal Kidd Lumbar stenosis M48.061 and Arthrodesis status Z98.1 Assessments Encounter Date Diagnosis (ICD Code) Assessment Notes Treatment Notes Treatment Clinical Notes Section Notes 11/11/2023 Arthrodesis status (ICD-10 - Z98.1) 11/11/2023 Lumbar stenosis (ICD-10 - M48.061) 11/11/2023 Other The patient appears to have done well over the post-operative course. He continues to have some right leg discomfort. He was reassured. The patient's imaging is stable. He was told to increase activity as tolerated. No aggressive bending lifting or twisting. Questions were asked and answered to the patient's satisfaction. He may be discharged from post-operative care today and return as needed. NOHEMY Emmanuel LPN am scribing for, and in the presence of Randal Kidd MD. IRandal, personally performed the services described in this documentation, as scribed by Citlaly Emmanuel LPN in my presence, and it is both accurate and complete. Plan Of Treatment Pending Test Test Name Order Date Prothrombin Time 21729 03/12/2023 ABORh 21286, 54180 03/12/2023 ABORh 08867, 79197 04/15/2023 Antibody Screen 33084 04/15/2023 Antibody Screen 81103 03/12/2023 Basic Metabolic Panel (BMP) 11174 2022 CBC w\ Auto Diff 10951 03/12/2023 Partial Thromboplastin Time 45078 2022 Chest PA/Lat-47378 03/12/2023 Chest PA/Lat-15276 03/19/2023 CT Chest w/ Contrast diagnostic-94605 CT Chest w/ Contrast diagnostic-15893 Lumbosacral Spine AP/Lat-05811 XR Outside CD 08/13/2022 XR Outside CD 09/03/2022 XR Outside CD 09/20/2022 XR Outside CD 07/31/2023 Electrocardiogram 12 Lead Tracing-34841 03/12/2023 BB ABORH-93037,05030 03/19/2023 zzzFluoroscopy 03/27/2023 zzzCT Outside CD 06/18/2022 zzzMRI Outside CD 09/30/2022 zzzMRI Outside CD 09/09/2022 IH Lumbosacral Spine AP/Lat - 08507 03/12 IH Lumbosacral Spine AP/Lat - 08898 03/12 Next Appt Details Provider Name:Yesi Londono Barbara, 11/16/2024 03:40:00 PM, [address] [place], [address], Insurance Providers Payer Name Payer Address Payer Phone Subscriber Number Group Number Insured Name Patient Relationship to Insured Coverage Start Date Coverage End Date [employer] [place] [address] [place] [address] [id number] [place] Self - patient is the insured [place] [address] [place] [address] [id number] BENITA [place] Self - patient is the insured Medications Administered Medication Instructions Date of Administration Dosage Notes dexAMETHasone 08/11/2023 4 mg Medical (General) History Medical History History ICD Code Pneumonia chronic bladder infections hernia Back Trouble hemorrhoids asthma hives bronchitis anxiety irritable bowel syndrome kidney stones sleep apnea ulcerative colitis Depression Surgical History Surgery Date(Month/Year) Cholecystectomy Umbilical hernia repair H/O Oral surgery 11/2018 gall bladder removal 02/2020 Umbilical hernia repair 09/2018 Hernia repair with mesh 07/2022 Hospitalization History Reason Date(Month/Year) See history constant vomiting 01/2021
--- OUTSIDE RECORDS SUMMARY | 2024-11-06 15:51 | XMS_ITS | Encounter Summary ---
Author Organization [facility] Address [address] [place] [address] Care Team Providers Care Stogy Maker Name Role Phone Isamar West CHIP TUNER Primary Care Provider [phone] Encounter Details Date Type Department Care Team (Late st Contact Info) Description 02/11/2008 Outpatient Historical [facility] [address] [place] [id number] Jacob Rene, DO NO ADDRESS ON FILE Social History Tobacco Use Types Packs/Day Years Used Date Smoking Tobacco: Never Assessed Sex and Gender Information Value Date Recorded Sex Assigned at Not on file 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
--- OUTSIDE RECORDS SUMMARY | 2024-11-06 15:51 | XMS_ITS | Encounter Summary ---
Author Organization [facility] Address [address] 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
--- OUTSIDE RECORDS SUMMARY | 2024-11-06 15:51 | XMS_ITS | Clinical Summary ---
Author Organization [facility] Address [address] [place] [address] Care Team Providers Care Operator Coating Furnace Name Role Phone Jenna Isamar Gibson NP Primary Care Provider [phone] Allergies Active Allergy Reactions Criticality Noted Date Comments Divalproex Hives High 10/03/2018 Ketorolac Tromethamine Hives High 10/03/2018 Penicillins Other (See Comments) 05/17/2008 PER H & P CMD 02/15/08 Medications calcium carbonate (CALCI-CHEW) 500 mg calcium (1,250 mg) Tablet, Chewable Take 2 Tabs by mouth every 6 hours as needed. Active ranitidine (ZANTAC) 300 mg tablet Take 300 mg by mouth 2 times daily. Active docusate sodium (COLACE) 100 mg capsule Take 100 mg by mouth 2 times daily. Active DULoxetine (CYMBALTA) 30 mg Capsule, Delayed Release(E.C.) Take 30 mg by mouth daily. Active multivitamin (DAILY-CLEOPATAR) tablet Take 1 Tab by mouth daily. Active ondansetron (ZOFRAN) 4 mg Tablet Take 4 mg by mouth every 8 hours as needed. Active temazepam (RESTORIL) 30 mg capsule Take 30 mg by mouth nightly as needed. Active diazepam (VALIUM) 10 mg tablet Take 10 mg by mouth every 6 hours as needed. Active DULoxetine (CYMBALTA) 60 mg Capsule, Delayed Release(E.C.) Take 60 mg by mouth daily. Active divalproex SR 24 hour (DEPAKOTE ER) 500 mg tablet Take 1 Tab by mouth daily with breakfast. 30 Tab 0 3 Active traMADol (ULTRAM) 50 mg tablet Take 1-2 Tablets (50-100 mg) by mouth 2 times daily as needed for pain (hold within 4 hours of planned sleep. 120 Tablet 07/20/2018 1:48 PM CDT 9 Active tiZANidine (ZANAFLEX) 4 mg Tablet Take 1 Tablet (4 mg) by mouth 2 times daily for muscle spasms 60 Tablet 1 07/20/2018 5:45 PM CDT 9 Active naproxen (NAPROSYN) 500 mg tablet Take 1 Tablet (500 mg) by mouth 2 times daily. Take with food. 60 Tablet 2 07/20/2018 5:45 PM CDT 9 Active diazePAM (VALIUM) 5 mg tablet Take 5 mg by mouth every 6 hours as needed for Anxiety. Active LOVASTATIN ORAL Take by mouth late in the day. Active omeprazole (PriLOSEC) 40 mg Capsule, Delayed Release(E.C.) Take 40 mg by mouth daily. Active budesonide-formo terol (SYMBICORT) 160-4.5 mcg/actuation HFA Aerosol Inhaler Take 2 Puffs by inhalation 2 times daily. Active HYDROcodone-acet aminophen (NORCO) 5-325 mg tabletIndication s:History of tooth extraction, unspecified edentulism class Take 1 Tablet by mouth every 6 hours as needed for Pain. 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 Social History Tobacco Use Types Packs/Day Years Used Date Smoking Tobacco: Former Cigarettes Q uit: 10/03/2016 Smokeless Tobacco: Never Alcohol Use Standard Drinks/Week Comments Yes 0 (1 standard drink = 0.6 oz pur e alcohol) Sex and Gender Information Value Date Recorded Sex Assigned at Not on file Legal Sex Male 2:39 AM RN HOME CARE Gender Identity Not on file Sexual Orientation Not on file Last Filed Vital Signs Vital Sign Reading Time Taken Comments Blood Pressure 123/75 12/13/2018 3:28 AM CDT Pulse 74 12/13/2018 3:28 AM CDT Temperature 36.5 C (97.7 F) 12/13/2018 1:51 AM CDT Respiratory Rate 18 12/13/2018 3:28 AM CDT Oxygen Saturation 96% 12/13/2018 3:28 AM CDT Inhaled Oxygen Concentration - - Weight 69.5 kg (153 lb 2 oz) 12/13/2018 1:51 AM CDT Height 167.6 cm (5' 6 ) 12/13/2018 1:51 AM CDT Body Mass Index 24.72 12/13/2018 1:51 AM CDT Plan of Treatment Health Maintenance Due Date Last Done Comments DTAP/TDAP/TD VACCINES (1 - Tdap) 01/25/2003 HEPATITIS B VACCINES (1 of 3 - 19+ 3-dose series) 01/25/2003 INFLUENZA VACCINE (#1) 2023 HPV VACCINES Aged Out No longer eligi ble based on patient's age to complete this topic Insurance [facility] [employer] Commercial Advance Directives For more information, please contact: [phone] Documents on File Type Date Recorded Patient Grinding Machine Operator Expl anation Advance Directive POA 12/29/2018 1:55 PM A dvance Directive POA Care Teams Operator Coating Furnace Relationship Specialty Start Date End Date Isamar West NP [address] [address] PCP - General NURSE PRACTITIONER 12/13/18
--- OUTSIDE RECORDS SUMMARY | 2024-11-06 15:52 | XMS_ITS | Clinical Summary ---
Author Organization [facility] Address [address] [facility] Attn: Epic Prelude ADT [place]IT[place] [address] Care Team Providers Care Elevator Service Technician Name Role Phone Isamar West NP Primary Care Provider [phone] Allergies Active Allergy Reactions Criticality Noted Date Comments Divalproex Hives High 10/03/2018 Ketorolac Tromethamine Hives High 10/03/2018 Penicillins Other (See Comments) 05/17/2008 PER H & P CMD 02/15/08 Medications naproxen (NAPROSYN) 500 mg tablet Take 1 Tablet (500 mg) by mouth 2 times daily. Take with food. 60 Tablet 2 9 Active meloxicam (MOBIC) 15 mg tablet Take 15 mg by mouth daily. Active fluticasone-umec lidinium-vilante rol (Trelegy Ellipta) 100-62.5-25 mcg Disk with Device Take 1 Puff by inhalation daily. Active pantoprazole (PROTONIX) 40 mg Tablet, Delayed Release (E.C.) Take 40 mg by mouth daily. Active LOVASTATIN ORAL Take by mouth late in the day. 9 Active omeprazole (PriLOSEC) 40 mg Capsule, Delayed Release(E.C.) Take 40 mg by mouth daily. 9 Active budesonide-formo teroL (SYMBICORT) 160-4.5 mcg/actuation HFA Aerosol Inhaler Take 2 Puffs by inhalation 2 times daily. 9 Active HYDROcodone-acet aminophen (NORCO) 5-325 mg tabletIndication s:History of tooth extraction, unspecified edentulism class Take 1 Tablet by mouth every 6 hours as needed for Pain. Max Daily Amount: 4 Tablets 8 Tablet 0 9 Active diazePAM (VALIUM) 5 mg tablet Take 5 mg by mouth every 6 hours as needed for Anxiety. 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 Gender Identity Not on file Sexual Orientation Not on file Last Filed Vital Signs Vital Sign Reading Time Taken Comments Blood Pressure 106/75 12/23/2021 11:43 AM CDT Pulse 90 12/23/2021 11:43 AM CDT Temperature 37.3 C (99.2 F) 12/23/2021 11:43 AM CDT Respiratory Rate 18 12/23/2021 11:43 AM CDT Oxygen Saturation 100% 12/23/2021 11:43 AM CDT Inhaled Oxygen Concentration - - Weight 63.7 kg (140 lb 6.9 oz) 05/24/2021 4:25 P M WASTE DISPOSAL LEAKAGE TESTER Height 167.6 cm (5' 6 ) 05/24/2021 4:25 PM WASTE DISPOSAL LEAKAGE TESTER Body Mass Index 22.67 05/24/2021 4:25 PM WASTE DISPOSAL LEAKAGE TESTER Plan of Treatment Health Maintenance Due Date Last Done Comments DTAP/TDAP/TD VACCINES (1 - Tdap) 01/25/2003 HEPATITIS B VACCINES (1 of 3 - 19+ 3-dose series) 01/25/2003 INFLUENZA VACCINE (#1) 2023 HPV VACCINES Aged Out No longer eligi ble based on patient's age to complete this topic Insurance * Guarantor: BENITA BRITO III Account Type Relation to Patient Date of Phone Billing Address Personal/Family [address] [place] [address] [facility] Commercial Advance Directives For more information, please contact: [phone] Documents on File Type Date Recorded Patient Hearing Stenographer Expl anation Advance Directive POA 12/29/2018 1:55 PM A dvance Directive POA Care Teams Elevator Service Technician Relationship Specialty Start Date End Date Isamar West NP [address] [facility] [address] [place], [place] [address] PCP - General NURSE PRACTITIONER 12/13/18
--- OUTSIDE RECORDS SUMMARY | 2024-11-06 15:52 | XMS_ITS | Patient Health Record ---
Author Organization [facility] Address [address] [place], [place] [id number] Care Team Providers Care Estimating Engineer Name Role Phone Elieser HERNANDEZ, Caesar Primary Care Provider Unavailab nicole Alarcon MD, Peter Unavailable [phone] Santos FOOD SERVICE AMBASSADOR, Haider Unavailable Unavailable Peter PANDEYP, Cristiana Unavailable [phone] Allergies Allergen (clinical drug ingredient) Drug/Non Drug Allergy documented on EMR Reaction Allergy Type Onset Date Status valproate Depakote hives Drug Allergy Active Toradol hives Drug Allergy Active penicillin anaphylaxis Drug Allergy Acti ve Results Component Value Reference Range Notes Urine tox screen / MS if ind icated Reviewed date:02/12/2024 02:03:50 PM Interpretation:Consistent Performing Lab: Notes/Report: Consistent Reason For Referral Reason Evaluation for possi ble treatment / continuation of care (clinic closing due to provider's shelter) Diagnosis 1 Vertebrogenic low ba ck pain (M54.51) Referral Organization [facility] Referring Provider First Name Peter Referring Provider Last Name Dorian Referring Provider Speciality Pain Manag ement Referred Provider Aramis Toney Referred Provider Specialty Pain Managem ent General Notes Luann Gonsalves 02:04:07 PM >FAXED TODAY. Referral Priority Routine Referral Appointment Date 11/16/2024 Medications Medication SIG (Take, Route, Frequency, Duration) Notes Start Date End Date Status morphine 15 mg 1-2 tabs orally Q4-6 H prn pain (max 6/day; hold within 4H of planned sleep) for 28 days Do not fill prior to 11/22/24. ICD-10: G89.29 09/21/2024 Active morphine 30 mg 1/2 - 1 tab orally Q4-6H prn pain (max 3/day; hold within 4H of planned sleep) for 28 days ICD-10: G89.29 09/28/2024 Active tamsulosin 0.4 mg 1 cap orally once a day Active sildenafil 20 mg 1 tab(s) orally as directed 02/12/2024 Active Protonix 40 mg 1 tab orally 2 times a day Active ondansetron 4 mg 1 tab orally 4 times a day as needed Active Narcan 4 mg/0.1 mL as directed intranasally once 09/10/2022 Active acetaminophen-oxycodone 325 mg-10 mg 1-2 tabs orally Q4-6H prn pain (max 6/day; hold within 4H of planned sleep) for 28 days Do not fill prior to 10/26/24. ICD-10: G89.29 10/07/2024 Active tiZANidine 4 mg 1-2 tabs orally Q8H prn spasm for 28 days Active acetaminophen-oxycodone 325 mg-10 mg 1-2 tabs orally Q4-6H prn pain (max 6/day; hold within 4H of planned sleep) for 28 days Do not fill prior to 11/23/24. ICD-10: G89.29 10/07/2024 Active zonisamide 100 mg 3 caps orally Q24H a t bedtime for 28 days Active Effexor XR 75 mg 1 cap(s) orally once a day Active diazePAM 5 mg 1 tab(s) orally twic e a day Active acetaminophen 500 mg 2 tabs PO orally TI D prn pain Active Trelegy Ellipta 100 mcg-62.5 mcg-25 mcg/inh 1 puff inhaled once a day Active lidocaine topical 5% 1 patch applied topically 12H on / 12H off for 30 days Active Problems Problem Type SNOMED Code ICD Code Onset Dates Problem Status W/U Status Risk Notes Problem Solitary sacroiliitis (414623909) Sacroiliitis, not elsewhere classified (M46.1) Active confirmed Problem Low back pain (356371446) Low back pain (M54.5) Active confirmed Problem Lumbosacral spondylosis without myelopathy (28741538) Spondylosis without myelopathy or radiculopathy, lumbar region (M47.816) Active confirmed Problem High risk drug monitoring status (463047622) snf (current) use of opiate analgesic (Z79.891) Active confirmed Problem Anxiety disorder (434711038) Other specified anxiety disorders (F41.8) Active confirmed Problem Hypersomnia (09420523) Hypersomnia, unspecified (G47.10) Active confirmed Problem Sleep disorder (38092943) Other sleep disorders (G47.8) Active confirmed Problem Chronic pain (09416085) Other chronic pain (G89.29) Active confirmed Problem Acquired spondylolisthesis (158375260) Spondylolisthesis , lumbosacral region (M43.17) Active confirmed Problem Radiculopathy due to lumbar intervertebral disc disorder (474738453451279) Intervertebral disc disorders with radiculopathy, lumbar region (M51.16) Active confirmed Problem Long-term current use of drug therapy (904962159) Other mcc (current) drug therapy (Z79.899) Active confirmed Problem Spinal stenosis of lumbar region (32714726) Spinal stenosis, lumbar region without neurogenic claudication (M48.061) Active confirmed Problem Muscle pain (00434605) Myalgia, other site (M79.18) Active confirmed Problem Vertebrogenic pain syndrome (232701735) Vertebrogenic low back pain (M54.51) Active confirmed Vital Signs Temperature 97.8 degrees Fahrenheit 09/21/2024 Blood pressure diastolic 85 mm Hg 09/21/2024 Oximetry 95 % 09/21/2024 Height 66 in 09/21/2024 Blood pressure systolic 134 mm Hg 09/21/2024 Weight 162.8 lbs 09/21/2024 BMI 26.27 kg/m2 09/21/2024 Encounters Encounter Location Date Provider Diagnosis [facility] [address] [place], [place] [id number] 12/18/2023 Cristiana Cains Spinal stenosis, lumbar region without neurogenic claudication M48.061 ; Other chronic pain G89.29 ; Vertebrogenic low back pain M54.51 ; Myalgia, other site M79.18 and Other sleep disorders G47.8 [facility] [address] [place], [place] [id number] 02/12/2024 Peter Alarcon Spinal stenosis, lumbar region without neurogenic claudication M48.061 ; Other chronic pain G89.29 ; Vertebrogenic low back pain M54.51 ; Myalgia, other site M79.18 ; Other sleep disorders G47.8 and assistant terminal manager (current) use of opiate analgesic Z79.891 [facility] [address] [place], [place] [id number] 03/31/2024 Peter Alarcon Other chronic pain G89.29 ; Vertebrogenic low back pain M54.51 ; Spinal stenosis, lumbar region without neurogenic claudication M48.061 ; Myalgia, other site M79.18 and Other sleep disorders G47.8 [facility] [address] [place], [place] [id number] 06/02/2024 Peter Alarcon Other chronic pain G89.29 ; Vertebrogenic low back pain M54.51 ; Spinal stenosis, lumbar region without neurogenic claudication M48.061 ; Myalgia, other site M79.18 and Other sleep disorders G47.8 [facility] [address] [place], [place] [id number] 07/21/2024 Peter Alarcon Other chronic pain G89.29 ; Vertebrogenic low back pain M54.51 ; Spinal stenosis, lumbar region without neurogenic claudication M48.061 ; Myalgia, other site M79.18 and Other sleep disorders G47.8 [facility] [address] [place], [place] [id number] 09/21/2024 Peter Alarcon Other chronic pain G89.29 ; Vertebrogenic low back pain M54.51 ; Spinal stenosis, lumbar region without neurogenic claudication M48.061 ; Myalgia, other site M79.18 and Other sleep disorders G47.8 [facility] [address] [place], [place] [id number] 12/22/2023 Peter Alarcon [facility] [address] [place], [place] [id number] 01/06/2024 Peter Alarcon [facility] [address] [place], [place] [id number] 09/28/2024 Peter Alarcon [facility] [address] [place] [id number] 10/07/2024 Peter Alarcon Assessments Encounter Date Diagnosis (ICD Code) Assessment Notes Treatment Notes Treatment Clinical Notes Section Notes 09/21/2024 Other chronic pain (ICD-10 - G89.29) Patient reports that taking his pain medication allows him to help provide care for his grandparents. Plan to continue oral opioid medication at today's visit. 06/02/2024 Other chronic pain (ICD-10 - G89.29) Patient reports that taking his pain medication allows him to provide care for his grandparents. Plan to continue oral opioid medication management. 07/21/2024 Other chronic pain (ICD-10 - G89.29) Patient reports that taking his pain medication allows him to be more active each day. Plan to continue oral opioid medication management. 03/31/2024 Other chronic pain (ICD-10 - G89.29) Patient reports that taking his pain medication allows him to spend time with family. Plan to continue oral opioid medication management. 03/31/2024 Vertebrogenic low back pain (ICD-10 - M54.51) Chronic axial lumbosacral spine pain. L5-S1 fusion / fixation completed with Dr. Kidd on 03/27/23. Repair of CSF leak on 04/15/23. 02/12/2024 Spinal stenosis, lumbar region without neurogenic claudication (ICD-10 - M48.061) Patient reports some benefit with use of Zonegran for his BLE symptoms. Plan to continue. 12/18/2023 Spinal stenosis, lumbar region without neurogenic claudication (ICD-10 - M48.061) Patient reports some benefit with use of Zonegran for his BLE symptoms. Plan to continue. Patient had desired injection therapy for his back and lower extremity pain. L5-S1 CHRISTOPHER on 03/10/23 with benefit noted in the low back and LLE. 12/18/2023 Vertebrogenic low back pain (ICD-10 - M54.51) Chronic axial lumbosacral spine pain. L5-S1 fusion / fixation completed with Dr. Kidd on 03/27/23. Repair of CSF leak on 04/15/23. 02/12/2024 Other chronic pain (ICD-10 - G89.29) Patient reports that taking his pain medication allows him to help out his grandparents. Plan to continue oral opioid medication management. 12/18/2023 Other chronic pain (ICD-10 - G89.29) Patient reports that taking his pain medication allows him to be more active. Plan to continue oral opioid medication management. 03/31/2024 Spinal stenosis, lumbar region without neurogenic claudication (ICD-10 - M48.061) Patient reports some benefit with use of Zonegran for his lower extremity symptoms. Plan to continue. 07/21/2024 Vertebrogenic low back pain (ICD-10 - M54.51) Chronic axial lumbosacral spine pain. L5-S1 fusion / fixation completed with Dr. Kidd on 03/27/23. Repair of CSF leak on 04/15/23. 06/02/2024 Vertebrogenic low back pain (ICD-10 - M54.51) Chronic axial lumbosacral spine pain. L5-S1 fusion / fixation completed with Dr. Kidd on 03/27/23. Repair of CSF leak on 04/15/23. 09/21/2024 Vertebrogenic low back pain (ICD-10 - M54.51) Chronic axial lumbosacral spine pain. Patient requests a referral to Dr. Toney for continuation of care. 09/21/2024 Spinal stenosis, lumbar region without neurogenic claudication (ICD-10 - M48.061) Patient reports some benefit with use of Zonegran for his lower extremity symptoms. Plan to continue. 06/02/2024 Spinal stenosis, lumbar region without neurogenic claudication (ICD-10 - M48.061) Patient reports some benefit with use of Zonegran for his lower extremity symptoms. Plan to continue. 07/21/2024 Spinal stenosis, lumbar region without neurogenic claudication (ICD-10 - M48.061) Patient reports some benefit with use of Zonegran for his lower extremity symptoms. Plan to continue. 03/31/2024 Myalgia, other site (ICD-10 - M79.18) Patient reports benefit with use of tizanidine his spasms. Plan to continue. 02/12/2024 Vertebrogenic low back pain (ICD-10 - M54.51) Chronic axial lumbosacral spine pain. L5-S1 fusion / fixation completed with Dr. Kidd on 03/27/23. Repair of CSF leak on 04/15/23. 12/18/2023 Myalgia, other site (ICD-10 - M79.18) Patient reports benefit with use of Soma for his spasms. Plan to continue pending approval from patient's new insurance. 12/18/2023 Other sleep disorders (ICD-10 - G47.8) Patient with history of a sleep disorder. Prior sleep study report revealed that patient was just under the cutoff for a formal diagnosis of sleep apnea. Plan to continue to restrict opioid use in relation to sleep for safety concerns. 02/12/2024 Myalgia, other site (ICD-10 - M79.18) Patient reports benefit with use of tizanidine his spasms. Plan to continue. 07/21/2024 Myalgia, other site (ICD-10 - M79.18) Patient reports benefit with use of tizanidine his spasms. Plan to continue. 03/31/2024 Other sleep disorders (ICD-10 - G47.8) Plan to continue to restrict opioid use in relation to sleep for safety concerns. 06/02/2024 Myalgia, other site (ICD-10 - M79.18) Patient reports benefit with use of tizanidine his spasms. Plan to continue. 09/21/2024 Myalgia, other site (ICD-10 - M79.18) Patient reports benefit with use of tizanidine his spasms. Plan to continue. 09/21/2024 Other sleep disorders (ICD-10 - G47.8) Plan to continue to restrict opioid use in relation to sleep for safety concerns. 06/02/2024 Other sleep disorders (ICD-10 - G47.8) Plan to continue to restrict opioid use in relation to sleep for safety concerns. 07/21/2024 Other sleep disorders (ICD-10 - G47.8) Plan to continue to restrict opioid use in relation to sleep for safety concerns. 02/12/2024 Other sleep disorders (ICD-10 - G47.8) Plan to continue to restrict opioid use in relation to sleep for safety concerns. 02/12/2024 snf (current) use of opiate analgesic (ICD-10 - Z79.891) 2022 opioid (OUD) risk tool score = 1. This places the patient in the low risk category. Plan urine toxicology screen today to monitor for presence of any unprescribed or illicit controlled substance(s), as well as prescribed morphine. 02/12/2024 Other Above prescriptions printed for patient to hand carry to the pharmacy of their choice as [facility] is closing tomorrow. The service was provided by CARLOS Murry, as part of the ongoing care plan established by Peter Alarcon MD, who was present in the office for direct supervision during the encounter. 06/02/2024 Other The service was provided by CARLOS Murry, as part of the ongoing care plan established by Peter Alarcon MD, who was present in the office for direct supervision during the encounter. 07/21/2024 Other The service was provided by CARLOS Murry, as part of the ongoing care plan established by Peter Alarcon MD, who was present in the office for direct supervision during the encounter. 03/31/2024 Other The service was provided by CARLOS Murry, as part of the ongoing care plan established by Peter Alarcon MD, who was present in the office for direct supervision during the encounter. 09/21/2024 Other The service was provided by CARLOS Murry, as part of the ongoing care plan established by Peter Alarcon MD, who was present in the office for direct supervision during the encounter. Patient was provided with a letter at today's visit informing patient that this clinic is closing due to Dr. Alarcon's shelter; see scanned document. Terminal prescriptions were given to the patient along with tapering instructions. 12/18/2023 Other Patient reports new insurance effective 12/11/23. Plan Of Treatment No Information Insurance Providers Payer Name Payer Address Payer Phone Subscriber Number Group Number Insured Name Patient Relationship to Insured Coverage Start Date Coverage End Date [employer] [address] [address] [place] [address] [phone] [id number] Peter Brito Self - patient is the insured 4 Medical (General) History Medical History History ICD Code Chronic pain Low back pain Lumbar spondylosis, disc disease, spinal stenosis and spondylolisthesis Sacroiliitis Mid back pain T4-7 remote mild anterior co mpression fractures as per 11/13/21 thoracic MRI report Knee pain, bilateral Post-traumatic stress disorder Anxiety disorder Hypertension Hypercholesterolemia Ulcers Colitis History of tobacco use, possible COPD Sleep disorder, prior sleep study report revealed that patient was at just below the cutoff for sleep apnea Influenza 06/15/24 (ER visit) Surgical History Surgery Date(Month/Year) Repair of umbilical hernia, performed at [facility] by Dr. Felix, 09/30/18 Oral surgery, 29 teeth extra cted, performed in [place], [place] by Dr. Mendze, 12/10/18, 01/26/19 Cholecystectomy, performed at [facility] by Dr. Felix, 02/21/20 Repair of inguinal hernia, b ilateral, performed at [facility] by Dr. De, 07/11/22 Endoscopy with biopsies, performed at [facility] by Dr. Morillo, 03/03/23 L5-S1 fusion, performed at [facility] by Dr. Augusta rush, 03/27/23 Repair of spinal fluid leak, performed a t [facility] by Dr. Kidd, 04/15/23 Hospitalization History Reason Date(Month/Year) Colitis (admitted by Dr. César yeh) 08/2020 Meningitis
[2024-11-06 15:58] VITALS: RESP 17; O2SAT 95
[2024-11-06] MEDS: ondansetron 2 mg/ML SDV 2 mL 4 MG IVP (15:58)
[2024-11-06] MEDS: morphine 4 mg/mL SDV 1 mL IVP (15:58)
[2024-11-06] MEDS: promethazine 25 mg/mL SDV 1 mL IM (15:59)
[2024-11-06 16:44] LABS: Basophils % 0.2 %; Hematocrit 47.3 % (37-53); Lymphocytes # 0.8 10^3/uL (0.8-4.8); Lymphocytes % 5.2 %; Mean Corpuscular Hemoglobin 29.9 pg (27-33); Mean Corpuscular Volume 87.9 fl (82-101); Mean Platelet Volume 9.2 fL (7.4-10.4); Monocytes # 0.4 10^3/uL (0.2-0.9); Monocytes % 2.8 %; Neutrophils # 13.56 10^3/uL (1.8-7.7); Neutrophils % 91.3 %; Nucleated Red Blood Cells % 0 %; Platelet Count 250 10^3/cmm (157-399); Red Blood Count 5.38 10^6/uL (3.85-5.65); Red Cell Distribution Width 12.6 % (12.1-15.1); White Blood Count 14.86 10^3/uL (3.29-11.43)
[2024-11-06] MEDS: sodium chloride 0.9% 1,000 ML 999 ML IV (16:52)
[2024-11-06] MEDS: diazePAM 5 mg Tablet PO (16:54)
[2024-11-06 17:09] LABS: Alanine Aminotransferase 24 U/L (0-41); Albumin Level 4.4 g/dL (3.5-5.2); Alkaline Phosphatase 116 U/L (40-130); Anion Gap 19.9 (5-19); Aspartate Amino Transferase 19 U/L (0-40); Blood Urea Nitrogen 6 mg/dL (6-20); Calcium 9.4 mg/dL (8.5-10.5); Carbon Dioxide 20 mmol/L (22-29); Chloride 104 mmol/L (98-107); Globulin 3.1 g/dL (1.3-4.6); Glomerular Filtration Rate 107.1 mL/min (90-130); Glucose 163 mg/dL (65-115); Osmolality Calculated 291 mOsm/kg (285-295); Potassium 3.9 mmol/L (3.5-5.1); Sodium 140 mmol/L (136-145); Total Bilirubin 0.3 mg/dL (0.15-1.2); Total Protein 7.5 g/dL (6.6-8.7)
[2024-11-06 17:11] LABS: Lactic Sepsis W/Reflex 1.5 mmol/L (0.5-2.2)
[2024-11-09 13:48] LABS: Glucose Point of Care 156 mg/dL (70-110)
== END 2024-11-06 18:12 | disposition home or self-care (01) ==
PROVIDERS: Emergency Provider Emergency Medicine; PCP Family Medicine
DX: R56.9 Unspecified convulsions (principal); F11.23 Opioid dependence with withdrawal; R11.0 Nausea; Z87.891 Personal history of nicotine dependence; J44.9 Chronic obstructive pulmonary disease, unspecified
CPT/HCPCS: 36415; 36416; 70450; 80053; 82962; 83605; 83735; 85025; 96361; 96372; 96374; 96375; 99285; J2270; J2405; J2550; J7030; J9999

== ENCOUNTER 2025-02-28 10:09 | Outpatient (CLI) | payer BC, MEDICAID, SELFPAY ==
--- NOTE | 2025-02-28 10:00 | US_ITS ---
WS: [id number] ULTRASOUND BLADDER CLINICAL INFORMATION: BPH; needs post void residual COMPARISON: None. FINDINGS: Urinary bladder: Bladder volume Prevoid bladder: 7.7 cm x 5.5 cm x 7.6 cm; estimated volume 167 ml. Postvoid bladder: 2.4 cm x 2.4 cm x 2.2 cm; estimated volume 6.6 ml. US/US bladder [id number] IMPRESSION: Prevoid bladder volume 167 cc Post void bladder volume 6.6 cc
== END 2025-02-28 10:10 | disposition home or self-care (01) ==
LOC: RAD 10:09
PROVIDERS: PCP Family Medicine; Visit Provider Family Medicine
DX: N40.1 Benign prostatic hyperplasia with lower urinary tract symptoms (principal); R35.1 Nocturia
CPT/HCPCS: 76857